=== PATIENT | female | born 1970 | race Caucasian/White ===

== ENCOUNTER 2023-09-26 09:57 | Observation (INO) | payer OTHER ==
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
[2023-09-26 11:06] LABS: Basophils % (A) 1 %; Eosinophils # (A) 0.2 k/uL (0-0.7); Eosinophils % (A) 4 %; HGB 13.5 gm/dL (11.4-16.0); Lymphocytes # (A) 0.8 k/uL (1.0-4.8); Lymphocytes % (A) 14 %; MCH 29.1 pg (25.0-35.0); MCHC 34.7 g/dL (31.0-37.0); MCV 83.7 fL (80.0-100.0); Mean Platelet Volume 7.9; Monocytes # (A) 0.4 k/uL (0-1.0); Monocytes % (A) 7 %; Neutrophils % (A) 74 %; Platelet Count 180 k/uL (150-450); RBC 4.66 m/uL (3.80-5.40); RDW 13.8 % (11.5-15.5); WBC 5.4 k/uL (3.8-10.6)
[2023-09-26 11:20] LABS: ALT 20 U/L (4-34); AST 25 U/L (14-36); African American GFR (CKD) 82 (>60 ml/min/1.73 sqM); Albumin 4.1 g/dL (3.5-5.0); Alkaline Phosphatase 58 U/L (38-126); Anion Gap 14 mmol/L; Blood Urea Nitrogen 18 mg/dL (7-17); Carbon Dioxide 22 mmol/L (22-30); Chloride 107 mmol/L (98-107); Glucose 134 mg/dL (74-99); Non-African American GFR(CKD) 71 (>60 ml/min/1.73 sqM); Sodium 143 mmol/L (137-145); Total Bilirubin 0.6 mg/dL (0.2-1.3); Total Protein 6.7 g/dL (6.3-8.2)
[2023-09-26 14:36] LABS: Amphetamine Screen,Urine Not Detected (NotDetected); Barbiturate Screen,Urine Not Detected (NotDetected); Benzodiazepines Screen,Urine Not Detected (NotDetected); Cocaine Screen,Urine Not Detected (NotDetected); Methadone Screen, Urine Not Detected (NotDetected); Opiate Screen,Urine Not Detected (NotDetected); Oxycodone Screen, Urine Not Detected (NotDetected); Phencyclidine Screen,Urine Not Detected (NotDetected); Tricyclic Antidepressant,Urine Not Detected (NotDetected); Urn Cannabinoid Scrn Not Detected (NotDetected)
[2023-09-26 17:31] LABS: Mucus,Urine Rare /hpf; RBC,Urine 1 /hpf (0-5); Squamous Epithelial Cell,Urine 3 /hpf (0-4); WBC,Urine 6 /hpf (0-5)
[2023-09-26 17:32] LABS: Appearance,Urine Clear (Clear); Bilirubin,Urine Negative (Negative); Blood,Urine Negative (Negative); Color,Urine Yellow; Glucose,Urine (UA) Negative (Negative); Ketones,Urine Negative (Negative); Leukocyte Esterase,Urine Trace (Negative); Nitrite,Urine Negative (Negative); PH, Urine 6.5 (5.0-8.0); Protein,Urine 2+ (Negative); Urobilinogen,Urine <2.0 mg/dL (<2.0)
[2023-09-26] MEDS ORDERED: SODIUM CHLORIDE 0.9% 1,000 ML IV ONE (19:12)
--- NOTE | 2023-09-27 10:46 | CT ---
EXAMINATION TYPE: CT brain wo con DATE OF EXAM: 09/27/2023 HISTORY: Altered mental status CT DLP: 2036.4 mGycm. Automated Exposure Control for Dose Reduction was Utilized. TECHNIQUE: CT scan of the head is performed without contrast. COMPARISON: None. FINDINGS: There is no acute intracranial hemorrhage or midline shift identified. Ventricles and sul ci within normal limits in size for patient's age. There is mild low-attenuation in the periventricu lar white matter most likely consistent with chronic small vessel ischemic change in patient of this age. The globes are intact and the visualized sinuses are clear. IMPRESSION: No acute intracranial hemorrhage or midline shift. There is mild chronic small vessel i schemic change noted.
--- NOTE | 2023-09-27 12:15 | P.CNNES ---
History of Present Illness Consult date: 09/27/23 Requesting physician: Rohan Stover Reason for Consult: acute psychosis History of Present Illness: This is a 53-year-old woman who presented emergency department because of psychiatric evaluation. History is obtained from medical record. Patient is unable to provide any history. Per the ED note is seems the the patient comes in because of the medication adjustment secondary to worsening bizarre behavior, confusion at home over the last month. She was recently seen by psychiatrist and had medications adjusted has not helped. She had a recent urinary tract infection. Was notified by ED team that EPS team wanted neurology to evaluate the patient. Per EMR, she is on home medication of trazodone 50 mg daily at bedtime when necessary, Risperdal 1 mg twice a day, Depakote 500 mg twice a day, Cogentin,Lumateperone 21mg daily. Some of the workup during his hospital visit consisted of: White blood cells 5.4 thousand. Calcium is 11.0, glucose 134, sodium, creatinine within normal limits. AST and ALT is within normal function. Urine drug she is not detected. The valproic acid is 101.3 concern possible to xic. Review of Systems Limited but positive and negative as per HPI. Past Medical History Past Medical History: Hypertension History of Any Multi-Drug Resistant Organisms: None Reported Past Surgical History: No Surgical Hx Reported Past Psychological History: Bipolar, Schizoaffective Disorder Smoking Status: Former smoker Past Alcohol Use History: None Reported Past Drug Use History: None Reported Medications and Allergies Home Medications Medication Instructions Recorded Confirmed Type Benztropine Mesylate [Cogentin] 2 mg PO DAILY 09/26/23 09/26/23 History Divalproex Sodium [Depakote] 500 mg PO BID 09/26/23 09/26/23 History Lumateperone Tosylate [Caplyta] 21 mg PO DAILY 09/26/23 09/26/23 History amLODIPine [Norvasc] 10 mg PO DAILY 09/26/23 09/26/23 History risperiDONE [RisperDAL] 1 mg PO BID 09/26/23 09/26/23 History traZODone HCL [Desyrel] 50 mg PO HS PRN 09/26/23 09/26/23 History Allergies Allergy/AdvReac Type Severity Reaction Status Date / Time Penicillins Allergy Rash/Hives Verified 09/26/23 12:15 Physical Examination - Vital Signs Vital Signs: Vital Signs Temp Pulse Resp BP Pulse Ox 09/27/23 07:10 84 18 141/89 98 09/26/23 22:43 68 16 134/81 99 09/26/23 19:00 98.0 F 67 18 132/79 96 General: Lying in bed and does not appear in acute distress. HENT: Supple neck. Neuro: very limited but is severely encephalopathic. Briefly opens eyes and the pupils are around 4 mm reactive to light equally. Followed very few simple commands after multiple attempts in which she stuck her tongue and she was able to show a thumbs up. No facial weakness. Motor is hard to assess individual muscle strength but spontaneously moves all extremities above gravity. Reflexes is 2 positive throughout. Plantars are mute. Results - Laboratory Findings CBC and BMP: 09/26/23 10:45 09/26/23 10:45 Abnormal Lab Findings: Abnormal Labs 09/26/23 09/26/23 09/26/23 10:45 10:45 10:45 Lymphocytes # 0.8 L BUN 18 H Glucose 134 H Calcium 11.0 H Ammonia Urine Protein 2+ H Ur Leukocyte Esterase Trace H Urine WBC 6 H Urine Mucus Rare H 09/27/23 10:34 Lymphocytes # BUN Glucose Calcium Ammonia 42 H Urine Protein Ur Leukocyte Esterase Urine WBC Urine Mucus Assessment and Plan Assessment: This is a 53-year-old woman with significant psychiatric history who presents because of psychiatric evaluation. EPS recommended neurological evaluation. Valproic acid was 101.3 which is a possible toxic. Severe encephalopathy/Toxic encephalopathy. Possibly due to medication-induced with possible toxic level of Depakote of 101.3. Significant psychiatric issues Plan: I ordered ammonia level, vitamin B12, folate, TSH and CT head. Recommend the modification of Depakote and a wound defer management to the psychiatry team. We'll defer the rest of the medical management to the primary team Plan discussed with the patient's nurse Thank you consultation Time with Patient: Greater than 30
[2023-09-27] MEDS ORDERED: traZODone HCL 50 MG TAB PO PRN (13:47)
[2023-09-27] MEDS ORDERED: LUMATEPERONE TOSYLATE 21 MG PO SCH (14:00)
[2023-09-27] MEDS ORDERED: risperiDONE 1 MG TAB PO SCH (14:00)
[2023-09-27] MEDS ORDERED: BENZTROPINE MESYLATE 1 MG TAB PO SCH (14:00)
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
[2023-09-27] MEDS: amLODIPine 10 MG TAB PO SCH (15:29)
--- NOTE | 2023-09-27 16:02 | EEG ---
ELECTROENCEPHALOGRAM REPORT CLINICAL HISTORY: This is a 53-year-old woman with history of bipolar, schizoaffective, who has altered mental status. The video EEG is obtained to evaluate for seizure and epileptiform activity. RELEVANT MEDICATION: Depakote. EEG TYPE: A routine 21-channel EEG with video using the 10/20 electrode placement system. DESCRIPTION: Wakefulness and drowsiness are obtained. During awake state, the background consists of 8.5 to 9 Hz activity. At times, the background consists of diffuse nonrhythmic delta intermixed with theta activity. There is no physiological stage II sleep architecture. There is no focal slowing. INTERICTAL AND ICTAL: None. ACTIVATION PROCEDURE: Photic stimulation and hyperventilation are not performed. CLINICAL INTERPRETATION: This is an abnormal routine EEG. The background slowing is suggestive of mild encephalopathy, possibly due to toxic metabolic derangement. Otherwise, there is no focal slowing, epileptiform discharge, or seizure on the EEG. Clinical correlation is recommended. KIARA / JIGNESH: [id number] /
--- NOTE | 2023-09-27 16:58 | P.HPIM ---
History of Present Illness H&P Date: 09/27/23 Brenda Ward, he is a 53-year-old female who presented to [facility] emergency room due to confusion and agitation, per emergency room records patient was recently treated for a urinary tract infection, she was also followed by a psychiatrist and her medication were adjusted recently, however she continued to have confusion and bizarre behavior was episodes of agitation, she was brought into emergency room for further evaluation and treatment, and for psychiatry care evaluation. She was evaluated in the emergency room vital examination on presentation revealed a temperature of 98.2 pulse 83 respiration 18 blood pressure 143/86 pulse ox 96% on room air Laboratory data revealed a white blood count of 5.4 hemoglobin 13.5 platelet count 180 sodium 143 potassium 4.0 chloride 107 CO2 22 BUN 18 creatinine 0.91 glucose 134 calcium 11 valproic acid level was elevated at 101.3 COVID-19 PCR was negative Testing in the emergency room revealed computed tomography scan of the brain revealed no acute intracranial hemorrhage or midline shift there was evidence of mild chronic small vessel ischemic changes. Patient was admitted to medical floor for further evaluation and treatment Past Medical History Past Medical History: Hypertension History of Any Multi-Drug Resistant Organisms: None Reported Past Surgical History: No Surgical Hx Reported Past Psychological History: Bipolar, Schizoaffective Disorder Smoking Status: Former smoker Past Alcohol Use History: None Reported Past Drug Use History: None Reported Medications and Allergies Home Medications Medication Instructions Recorded Confirmed Type Benztropine Mesylate [Cogentin] 2 mg PO DAILY 09/26/23 09/26/23 History Divalproex Sodium [Depakote] 500 mg PO BID 09/26/23 09/26/23 History Lumateperone Tosylate [Caplyta] 21 mg PO DAILY 09/26/23 09/26/23 History amLODIPine [Norvasc] 10 mg PO DAILY 09/26/23 09/26/23 History risperiDONE [RisperDAL] 1 mg PO BID 09/26/23 09/26/23 History traZODone HCL [Desyrel] 50 mg PO HS PRN 09/26/23 09/26/23 History Allergies Allergy/AdvReac Type Severity Reaction Status Date / Time Penicillins Allergy Rash/Hives Verified 09/26/23 12:15 Physical Exam Vitals: Vital Signs Temp Pulse Resp BP Pulse Ox 09/27/23 07:10 84 18 141/89 98 09/26/23 22:43 68 16 134/81 99 09/26/23 19:00 98.0 F 67 18 132/79 96 In general patient patient is somnolent opens her eyes briefly, follows simple commands then closes her eyes in HEENT head normocephalic and atraumatic Neck is supple no JVD no goiter no lymphadenopathy no carotid bruit Chest examination is clear to auscultation no crackles no wheezing Cardiac exam reveals regular heart sounds S1 and S2 no gallops no murmurs Abdomen is soft nontender no organomegaly with normal bowel sounds Extremity exam reveals no edema no cyanosis or clubbing Neurological examination reveals no gross focal deficits Results CBC & Chem 7: 09/26/23 10:45 09/26/23 10:45 Labs: Abnormal Lab Results - Last 24 Hours (Table) 09/26/23 09/26/23 09/26/23 Range/Units 10:45 10:45 10:45 Lymphocytes # 0.8 L (1.0-4.8) k/uL BUN 18 H (7-17) mg/dL Glucose 134 H (74-99) mg/dL Calcium 11.0 H (8.4-10.2) mg/dL Urine Protein 2+ H (Negative) Ur Leukocyte Esterase Trace H (Negative) Urine WBC 6 H (0-5) /hpf Urine Mucus Rare H (None) /hpf Assessment and Plan Plan: Encephalopathy, cause is unclear, no evidence of infectious process at this time, likely related to medication side effects, neurology and psychiatry consultation requested Mild Depakote toxicity with a level of 101.3 Underlying history of schizoaffective disorder Recent history of urinary tract infection with treatment, no evidence of UTI at this tme. Underlying history of hypertension maintained on amlodipine At this time patient will be admitted to medical floor Psychiatry and neurology consultation requested For DVT prophylaxis subcu Angex Will follow closely
[2023-09-27] MEDS: ENOXAPARIN 40 MG/0.4 ML SYRINGE SQ SCH (18:16)
[2023-09-27] MEDS ORDERED: MELATONIN 3 MG TABLET PO SCH (21:00)
[2023-09-28] MEDS: traZODone HCL 50 MG TAB PO PRN (01:00)
[2023-09-28] MEDS: amLODIPine 10 MG TAB PO SCH (09:11)
[2023-09-28] MEDS: ENOXAPARIN 40 MG/0.4 ML SYRINGE SQ SCH (09:12)
--- NOTE | 2023-09-28 10:39 | P.PN ---
Subjective Progress Note Date: 09/28/23 Brenda Ward, he is a 53-year-old female who presented to [facility] emergency room due to confusion and agitation, per emergency room records patient was recently treated for a urinary tract infection, she was also followed by a psychiatrist and her medication were adjusted recently, however she continued to have confusion and bizarre behavior was episodes of agitation, she was brought into emergency room for further evaluation and treatment, and for psychiatry care evaluation. She was evaluated in the emergency room vital examination on presentation revealed a temperature of 98.2 pulse 83 respiration 18 blood pressure 143/86 pulse ox 96% on room air Laboratory data revealed a white blood count of 5.4 hemoglobin 13.5 platelet count 180 sodium 143 potassium 4.0 chloride 107 CO2 22 BUN 18 creatinine 0.91 glucose 134 calcium 11 valproic acid level was elevated at 101.3 COVID-19 PCR was negative Testing in the emergency room revealed computed tomography scan of the brain revealed no acute intracranial hemorrhage or midline shift there was evidence of mild chronic small vessel ischemic changes. Patient was admitted to medical floor for further evaluation and treatment On 09/28/2023 patient is currently resting comfortably in bed medications adjusted per neurology and psych EEG ordered. Awaiting further recommendations from neurology services. Current vital signs temp 98.0, heart rate 72, respiratory rate 17, blood pressure 136/84 and pulse ox 98% on room air Objective - Vital Signs Vital signs: Vital Signs Temp 98.0 F 09/26/23 19:00 Pulse 72 09/28/23 09:00 Resp 17 09/28/23 09:00 BP 136/84 09/28/23 09:00 Pulse Ox 98 09/28/23 09:00 FiO2 - Exam In general patient patient is somnolent opens her eyes briefly, follows simple commands then closes her eyes in HEENT head normocephalic and atraumatic Neck is supple no JVD no goiter no lymphadenopathy no carotid bruit Chest examination is clear to auscultation no crackles no wheezing Cardiac exam reveals regular heart sounds S1 and S2 no gallops no murmurs Abdomen is soft nontender no organomegaly with normal bowel sounds Extremity exam reveals no edema no cyanosis or clubbing Neurological examination reveals no gross focal deficits - Labs CBC & Chem 7: 09/26/23 10:45 09/26/23 10:45 Labs: Abnormal Lab Results - Last 24 Hours (Table) 09/27/23 Range/Units 10:34 Ammonia 42 H (<30) umol/L Assessment and Plan Plan: Encephalopathy, cause is unclear, no evidence of infectious process at this time, likely related to medication side effects, neurology and psychiatry consultation requested Mild Depakote toxicity with a level of 101.3 Underlying history of schizoaffective disorder Recent history of urinary tract infection with treatment, no evidence of UTI at this tme. Underlying history of hypertension maintained on amlodipine At this time patient will be admitted to medical floor Psychiatry and neurology consultation requested For DVT prophylaxis subcu Lovenox Will follow closely
[2023-09-28 11:32] LABS: ALT 21 U/L (8-44); AST 18 U/L (13-35); Albumin 4.1 g/dL (3.8-4.9); Albumin/Globulin Ratio 1.78 Ratio (1.60-3.17); Alkaline Phosphatase 62 U/L (41-126); Blood Urea Nitrogen 20.1 mg/dL (9.0-27.0); Calcium 10.8 mg/dL (8.7-10.3); Chloride 106 mmol/L (96-109); Globulin 2.3 g/dL (1.6-3.3); Glucose 100 mg/dL (70-110); Potassium 4.3 mmol/L (3.5-5.5); Sodium 142 mmol/L (135-145); Total Bilirubin 0.4 mg/dL (0.3-1.2); Total Protein 6.4 g/dL (6.2-8.2)
[2023-09-28 11:35] LABS: Basophils # (A) 0.03 X 10*3/uL (0.00-0.10); Basophils % (A) 0.6 %; Eosinophils # (A) 0.16 X 10*3/uL (0.04-0.35); Eosinophils % (A) 3.4 %; HGB 13.3 g/dL (12.0-15.0); Lymphocytes # (A) 1.15 X 10*3/uL (0.90-5.00); Lymphocytes % (A) 24.5 %; MCH 27.4 pg (27.0-32.0); MCHC 33.3 g/dL (32.0-37.0); MCV 82.5 FL (80.0-97.0); Mean Platelet Volume 10.8 FL (9.5-12.2); Monocytes # (A) 0.49 X 10*3/uL (0.20-1.00); Monocytes % (A) 10.4 %; NRBC Per 100 WBC 0 X 10*3/uL (0.00-0.01); Neutrophils # (A) 2.85 X 10*3/uL (1.80-7.70); Neutrophils % (A) 60.7 %; Platelet Count 193 X 10*3/uL (140-440); RBC 4.85 X 10*6/uL (4.10-5.20); RDW 13.2 % (11.5-14.5)
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
--- NOTE | 2023-09-28 14:01 | P.PN ---
Progress Note - Text Progress Note Date: 09/28/23 Interval history: Patient was seen today for psychiatric follow-up with regard to her delirium. Patient appeared to be more weak today and was eating her lunch. She continues to be somewhat confused and did not know today's date. She didn't know where she was and also her full name today. She was more cooperative today with comic book writer. Appears to have mildly improving attention span. She appears to have very poor insight and judgment. She denied any depression or anxiety. She was a very poor historian, illogical at times. States that she slept fairly, has a fair appetite. Denies having any suicidal or homicidal ideations better plan. Denying any auditory or visual hallucinations. MENTAL STATUS EXAM: General Appearance: Patient appears to be have short hair, lying in bed and lethargic. stated age. Patient appears to have fair hygiene and grooming wearing hospital gown with improving eye contact. Behavior: Patient is calmly lying in bed without any agitated behavior. Her weight today, bizarre Speech: Patient's speech is concrete, soft tone. Improving Mood/Affect: Cleans her mood is "okay", affect is constricted Suicidality/Homicidality: Patient denies having any suicidal or homicidal ideation intent or plan. Perceptions: Patient denies any visual hallucinations and denies any auditory hallucinations Though content/process: There is no evidence of any delusional thought content. concrete. poverty of content. Bizarre at times Memory and concentration: AOX2, does not know today's date. grossly poor concentration improving Judgment and insight: poor IMPRESSIONS: Delirium, unknown etiology (possibly medication induced vs toxic-metabolic) possible medication adverse reaction? History of schizoaffective disorder PLAN: -At this time patient DOES NOT meet criteria for inpatient psychiatric admission however patient will be continued to be followed by psychiatry to determine if patient will meet criteria at a later point. -Delirium precautions recommended with patient including - avoiding use of narcotics and AUTOMAT [employer]ENDANT sedatives, limit anticholinergic medications when possible, frequent re-orientation, minimize use of restraints, open window shades during the day and close them at night -Would recommend the following medication changes/additions: increase prolixin 1.5 mg bid for delirium/psychosis. trazodone 25 qhs prn for insomnia. increase melatonin 5 mg qhs for sleep -Communicated plan to patient's nurse -Appreciate neurology recommendations, EEG reported that patient has evidence of mild encephalopathy. -Will continue to follow along if requested over the weekend. -Please contact with any questions.
[2023-09-28] MEDS: MELATONIN 5 MG TABLET PO SCH (21:19)
--- NOTE | 2023-09-29 06:34 | MR ---
EXAMINATION TYPE: MR brain wo/w con DATE OF EXAM: 09/28/2023 COMPARISON: CT brain from yesterday. HISTORY: Confusion of unknown cause TECHNIQUE: Multiplanar, multisequence images of the brain and brainstem is performed without and with IV contras t, utilizing 9 mL intravenous Gadavist . FINDINGS: Diffusion weighted images demonstrate no evidence of a recent infarct or other diffusion ab normality. There is mild ventricular and sulcal prominence redemonstrated. There are approximately 3 0-40 scattered foci of T2 hyperintensity seen throughout the white matter bilaterally. Lesions are mo st prominent in the periventricular levels. Lesion is nonspecific in appearance and distribution. Midline structures demonstrate empty sella morphology. The craniocervical junction appears within no rmal limits. Post contrast images demonstrate homogeneous enhancing extra-axial 11 x 9 mm mass along the anterior falx axial image 24 consistent with small meningioma. The dural venous sinuses appear p atent. The visualized sinuses are clear and the globes are intact. IMPRESSION: 1. No MRI evidence for a recent infarct. 2. Background mild diffuse cerebral atrophy and mild to moderate chronic small vessel ischemic change is appreciated. 3.. Incidental 11 mm meningioma along the anterior interhemispheric fissure.
[2023-09-29 09:16] LABS: ALT 25 U/L (8-44); AST 24 U/L (13-35); Albumin 4.3 g/dL (3.8-4.9); Albumin/Globulin Ratio 1.72 Ratio (1.60-3.17); Alkaline Phosphatase 67 U/L (41-126); BUN/Creat Ratio 20.67 Ratio (12.00-20.00); Blood Urea Nitrogen 18.6 mg/dL (9.0-27.0); Carbon Dioxide 23.4 mmol/L (21.6-31.8); Chloride 107 mmol/L (96-109); Globulin 2.5 g/dL (1.6-3.3); Glucose 100 mg/dL (70-110); Potassium 4.5 mmol/L (3.5-5.5); Sodium 141 mmol/L (135-145); Total Bilirubin 0.4 mg/dL (0.3-1.2); Total Protein 6.8 g/dL (6.2-8.2)
[2023-09-29] MEDS: amLODIPine 10 MG TAB PO SCH (09:27)
[2023-09-29] MEDS: ENOXAPARIN 40 MG/0.4 ML SYRINGE SQ SCH (09:27)
[2023-09-29 10:17] LABS: Basophils # (A) 0.05 X 10*3/uL (0.00-0.10); Basophils % (A) 0.9 %; Eosinophils # (A) 0.19 X 10*3/uL (0.04-0.35); Eosinophils % (A) 3.5 %; HCT 42.4 % (37.2-46.3); HGB 13.9 g/dL (12.0-15.0); Lymphocytes # (A) 1.43 X 10*3/uL (0.90-5.00); Lymphocytes % (A) 26.7 %; MCH 27.4 pg (27.0-32.0); MCHC 32.8 g/dL (32.0-37.0); MCV 83.6 FL (80.0-97.0); Mean Platelet Volume 10.5 FL (9.5-12.2); Monocytes # (A) 0.54 X 10*3/uL (0.20-1.00); Monocytes % (A) 10.1 %; NRBC Per 100 WBC 0 X 10*3/uL (0.00-0.01); Neutrophils # (A) 3.13 X 10*3/uL (1.80-7.70); Neutrophils % (A) 58.4 %; Platelet Count 205 X 10*3/uL (140-440); RBC 5.07 X 10*6/uL (4.10-5.20); RDW 13.3 % (11.5-14.5); WBC 5.36 X 10*3/uL (4.50-10.00)
--- NOTE | 2023-09-29 10:18 | P.PN ---
Subjective Progress Note Date: 09/29/23 Brenda Ward, he is a 53-year-old female who presented to [facility] emergency room due to confusion and agitation, per emergency room records patient was recently treated for a urinary tract infection, she was also followed by a psychiatrist and her medication were adjusted recently, however she continued to have confusion and bizarre behavior was episodes of agitation, she was brought into emergency room for further evaluation and treatment, and for psychiatry care evaluation. She was evaluated in the emergency room vital examination on presentation revealed a temperature of 98.2 pulse 83 respiration 18 blood pressure 143/86 pulse ox 96% on room air Laboratory data revealed a white blood count of 5.4 hemoglobin 13.5 platelet count 180 sodium 143 potassium 4.0 chloride 107 CO2 22 BUN 18 creatinine 0.91 glucose 134 calcium 11 valproic acid level was elevated at 101.3 COVID-19 PCR was negative Testing in the emergency room revealed computed tomography scan of the brain revealed no acute intracranial hemorrhage or midline shift there was evidence of mild chronic small vessel ischemic changes. Patient was admitted to medical floor for further evaluation and treatment On 09/28/2023 patient is currently resting comfortably in bed medications adjusted per neurology and psych EEG ordered. Awaiting further recommendations from neurology services. Current vital signs temp 98.0, heart rate 72, respiratory rate 17, blood pressure 136/84 and pulse ox 98% on room air On 09/29/2023 patient is alert and oriented 3 currently resting comfortably in bed. Medications have been adjusted per psychiatry and neurology services. Awaiting further recommendations from neurology and psychiatry services in regards to Depakote. Nursing also stated that patient's aunt expressed concerns that she is not able to care for her will consult social work services Objective - Vital Signs Vital signs: Vital Signs Temp 98.2 F 09/29/23 09:15 Pulse 60 09/29/23 09:15 Resp 16 09/29/23 09:15 BP 156/86 09/29/23 09:15 Pulse Ox 98 09/29/23 09:15 FiO2 Intake & Output 09/28/23 09/29/23 09/29/23 18:59 06:59 18:59 Weight 90.718 kg Other: # Voids 1 2 - Exam In general patient patient is somnolent opens her eyes briefly, follows simple commands then closes her eyes in HEENT head normocephalic and atraumatic Neck is supple no JVD no goiter no lymphadenopathy no carotid bruit Chest examination is clear to auscultation no crackles no wheezing Cardiac exam reveals regular heart sounds S1 and S2 no gallops no murmurs Abdomen is soft nontender no organomegaly with normal bowel sounds Extremity exam reveals no edema no cyanosis or clubbing Neurological examination reveals no gross focal deficits - Labs CBC & Chem 7: 09/28/23 06:59 09/29/23 05:59 Labs: Abnormal Lab Results - Last 24 Hours (Table) 09/28/23 09/29/23 Range/Units 06:59 05:59 BUN/Creatinine Ratio 20.10 H 20.67 H (12.00-20.00) Ratio Calcium 10.8 H 11.0 H (8.7-10.3) mg/dL Assessment and Plan Plan: Encephalopathy, cause is unclear, no evidence of infectious process at this time, likely related to medication side effects, neurology and psychiatry consultation requested Mild Depakote toxicity with a level of 101.3 Underlying history of schizoaffective disorder Recent history of urinary tract infection with treatment, no evidence of UTI at this tme. Underlying history of hypertension maintained on amlodipine At this time patient will be admitted to medical floor Psychiatry and neurology consultation requested [facility] Will follow closely Social work services consulted
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
[2023-09-29] MEDS ORDERED: ACETAMINOPHEN TAB 325 MG TAB PO PRN (19:48)
[2023-09-29] MEDS: MELATONIN 5 MG TABLET PO SCH (20:22)
[2023-09-30] MEDS: lamoTRIgine 25 MG TAB PO SCH (08:28)
[2023-09-30] MEDS: amLODIPine 10 MG TAB PO SCH (08:28)
[2023-09-30] MEDS: ENOXAPARIN 40 MG/0.4 ML SYRINGE SQ SCH (08:28)
--- NOTE | 2023-09-30 12:00 | P.PN ---
Subjective Progress Note Date: 09/30/23 Brenda Ward, he is a 53-year-old female who presented to [facility] emergency room due to confusion and agitation, per emergency room records patient was recently treated for a urinary tract infection, she was also followed by a psychiatrist and her medication were adjusted recently, however she continued to have confusion and bizarre behavior was episodes of agitation, she was brought into emergency room for further evaluation and treatment, and for psychiatry care evaluation. She was evaluated in the emergency room vital examination on presentation revealed a temperature of 98.2 pulse 83 respiration 18 blood pressure 143/86 pulse ox 96% on room air Laboratory data revealed a white blood count of 5.4 hemoglobin 13.5 platelet count 180 sodium 143 potassium 4.0 chloride 107 CO2 22 BUN 18 creatinine 0.91 glucose 134 calcium 11 valproic acid level was elevated at 101.3 COVID-19 PCR was negative Testing in the emergency room revealed computed tomography scan of the brain revealed no acute intracranial hemorrhage or midline shift there was evidence of mild chronic small vessel ischemic changes. Patient was admitted to medical floor for further evaluation and treatment On 09/28/2023 patient is currently resting comfortably in bed medications adjusted per neurology and psych EEG ordered. Awaiting further recommendations from neurology services. Current vital signs temp 98.0, heart rate 72, respiratory rate 17, blood pressure 136/84 and pulse ox 98% on room air On 09/29/2023 patient is alert and oriented 3 currently resting comfortably in bed. Medications have been adjusted per psychiatry and neurology services. Awaiting further recommendations from neurology and psychiatry services in regards to Depakote. Nursing also stated that patient's aunt expressed concerns that she is not able to care for her will consult social work services On 09/30/2023 patient was seen and examined on the medical floor she is alert slightly confused in no apparent distress, there is no fever or chills no headache or dizziness no chest pain no shortness of breath no cough no nausea or vomiting no abdominal pain no diarrhea and no urinary symptoms. Brain MRI reveals evidence of 11 mm meningioma in the anterior interhemispheric fissure, case was discussed with Dr. Reed Felton, neurologist, he added Lamictal to her medication regimen, and advised increasing the dose gradually, he recommended follow-up with neurosurgery as outpatient. Objective - Vital Signs Vital signs: Vital Signs Temp 98.6 F 09/30/23 07:24 Pulse 54 L 09/30/23 07:24 Resp 16 09/30/23 07:24 BP 129/79 09/30/23 07:24 Pulse Ox 99 09/30/23 07:24 FiO2 Intake & Output 09/29/23 09/30/23 09/30/23 18:59 06:59 18:59 Intake Total 222 Balance 222 Intake: Oral 222 Other: # Voids 2 - Exam In general patient patient is somnolent opens her eyes briefly, follows simple commands then closes her eyes in HEENT head normocephalic and atraumatic Neck is supple no JVD no goiter no lymphadenopathy no carotid bruit Chest examination is clear to auscultation no crackles no wheezing Cardiac exam reveals regular heart sounds S1 and S2 no gallops no murmurs Abdomen is soft nontender no organomegaly with normal bowel sounds Extremity exam reveals no edema no cyanosis or clubbing Neurological examination reveals no gross focal deficits - Labs CBC & Chem 7: 09/29/23 05:59 09/29/23 05:59 Assessment and Plan Plan: Encephalopathy, cause is unclear, no evidence of infectious process at this time, likely related to medication side effects, neurology and psychiatry consultation requested Mild Depakote toxicity with a level of 101.3 Underlying history of schizoaffective disorder Recent history of urinary tract infection with treatment, no evidence of UTI at this tme. Underlying history of hypertension maintained on amlodipine At this time patient will be admitted to medical floor Psychiatry and neurology consultation requested For DVT prophylaxis subcu Lovenox Will follow closely Social work services consulted
[2023-09-30] MEDS: MELATONIN 5 MG TABLET PO SCH (21:49)
[2023-10-01 05:41] VITALS: RESP 16
[2023-10-01 09:09] LABS: Basophils # (A) 0.06 X 10*3/uL (0.00-0.10); Eosinophils # (A) 0.18 X 10*3/uL (0.04-0.35); Eosinophils % (A) 3.1 %; HCT 41.6 % (37.2-46.3); HGB 13.6 g/dL (12.0-15.0); Lymphocytes # (A) 1.71 X 10*3/uL (0.90-5.00); Lymphocytes % (A) 29.8 %; MCH 27.3 pg (27.0-32.0); MCHC 32.7 g/dL (32.0-37.0); MCV 83.4 FL (80.0-97.0); Mean Platelet Volume 10.6 FL (9.5-12.2); Monocytes # (A) 0.61 X 10*3/uL (0.20-1.00); Monocytes % (A) 10.6 %; NRBC Per 100 WBC 0 X 10*3/uL (0.00-0.01); Neutrophils # (A) 3.14 X 10*3/uL (1.80-7.70); Platelet Count 225 X 10*3/uL (140-440); RBC 4.99 X 10*6/uL (4.10-5.20); RDW 13.2 % (11.5-14.5); WBC 5.73 X 10*3/uL (4.50-10.00)
[2023-10-01 09:19] LABS: BUN/Creat Ratio 18.36 Ratio (12.00-20.00); Blood Urea Nitrogen 20.2 mg/dL (9.0-27.0); Glucose 102 mg/dL (70-110)
[2023-10-01 09:20] LABS: ALT 28 U/L (8-44); AST 17 U/L (13-35); Albumin 4.2 g/dL (3.8-4.9); Albumin/Globulin Ratio 1.75 Ratio (1.60-3.17); Alkaline Phosphatase 65 U/L (41-126); Chloride 107 mmol/L (96-109); Globulin 2.4 g/dL (1.6-3.3); Potassium 4.8 mmol/L (3.5-5.5); Sodium 142 mmol/L (135-145); Total Bilirubin 0.3 mg/dL (0.3-1.2); Total Protein 6.6 g/dL (6.2-8.2)
[2023-10-01] MEDS: ENOXAPARIN 40 MG/0.4 ML SYRINGE SQ SCH (09:31)
[2023-10-01] MEDS: amLODIPine 10 MG TAB PO SCH (09:32)
[2023-10-01] MEDS: lamoTRIgine 25 MG TAB PO SCH (09:32)
--- NOTE | 2023-10-01 17:02 | P.PN ---
Subjective Progress Note Date: 10/01/23 Brenda Ward, he is a 53-year-old female who presented to [facility] emergency room due to confusion and agitation, per emergency room records patient was recently treated for a urinary tract infection, she was also followed by a psychiatrist and her medication were adjusted recently, however she continued to have confusion and bizarre behavior was episodes of agitation, she was brought into emergency room for further evaluation and treatment, and for psychiatry care evaluation. She was evaluated in the emergency room vital examination on presentation revealed a temperature of 98.2 pulse 83 respiration 18 blood pressure 143/86 pulse ox 96% on room air Laboratory data revealed a white blood count of 5.4 hemoglobin 13.5 platelet count 180 sodium 143 potassium 4.0 chloride 107 CO2 22 BUN 18 creatinine 0.91 glucose 134 calcium 11 valproic acid level was elevated at 101.3 COVID-19 PCR was negative Testing in the emergency room revealed computed tomography scan of the brain revealed no acute intracranial hemorrhage or midline shift there was evidence of mild chronic small vessel ischemic changes. Patient was admitted to medical floor for further evaluation and treatment On 09/28/2023 patient is currently resting comfortably in bed medications adjusted per neurology and psych EEG ordered. Awaiting further recommendations from neurology services. Current vital signs temp 98.0, heart rate 72, respiratory rate 17, blood pressure 136/84 and pulse ox 98% on room air On 09/29/2023 patient is alert and oriented 3 currently resting comfortably in bed. Medications have been adjusted per psychiatry and neurology services. Awaiting further recommendations from neurology and psychiatry services in regards to Depakote. Nursing also stated that patient's aunt expressed concerns that she is not able to care for her will consult social work services On 09/30/2023 patient was seen and examined on the medical floor she is alert slightly confused in no apparent distress, there is no fever or chills no headache or dizziness no chest pain no shortness of breath no cough no nausea or vomiting no abdominal pain no diarrhea and no urinary symptoms. Brain MRI reveals evidence of 11 mm meningioma in the anterior interhemispheric fissure, case was discussed with Dr. Reed Felton, neurologist, he added Lamictal to her medication regimen, and advised increasing the dose gradually, he recommended follow-up with neurosurgery as outpatient. On 10/01/2023 patient was seen and examined on the medical floor she is alert slightly confused in no apparent distress, she is feeling better, there is no fever or chills no headache or dizziness no chest pain no shortness of breath no cough no nausea or vomiting no abdominal pain no diarrhea and no urinary symptoms. Brain MRI reveals evidence of 11 mm meningioma in the anterior interhemispheric fissure, case was discussed with Dr. Reed Felton, neurologist, he added Lamictal to her medication regimen, and advised increasing the dose gradually, he recommended follow-up with neurosurgery as outpatient. Objective - Vital Signs Vital signs: Vital Signs Temp 98.3 F 10/01/23 07:29 Pulse 54 L 10/01/23 07:29 Resp 16 10/01/23 07:29 BP 127/80 10/01/23 07:29 Pulse Ox 99 10/01/23 07:29 FiO2 Intake & Output 09/30/23 10/01/23 10/01/23 18:59 06:59 18:59 Intake Total 222 500 Balance 222 500 Intake: Oral 222 500 Other: Voiding Method Toilet # Voids 1 2 - Exam In general patient patient is somnolent opens her eyes briefly, follows simple commands then closes her eyes in HEENT head normocephalic and atraumatic Neck is supple no JVD no goiter no lymphadenopathy no carotid bruit Chest examination is clear to auscultation no crackles no wheezing Cardiac exam reveals regular heart sounds S1 and S2 no gallops no murmurs Abdomen is soft nontender no organomegaly with normal bowel sounds Extremity exam reveals no edema no cyanosis or clubbing Neurological examination reveals no gross focal deficits - Labs CBC & Chem 7: 10/01/23 05:37 10/01/23 05:37 Labs: Abnormal Lab Results - Last 24 Hours (Table) 10/01/23 Range/Units 05:37 Est GFR (CKD-EPI) 59 L (>=60) Calcium 11.0 H (8.7-10.3) mg/dL Assessment and Plan Plan: Encephalopathy, cause is unclear, no evidence of infectious process at this time, likely related to medication side effects, neurology and psychiatry consultation requested Mild Depakote toxicity with a level of 101.3 Underlying history of schizoaffective disorder Recent history of urinary tract infection with treatment, no evidence of UTI at this tme. Underlying history of hypertension maintained on amlodipine At this time patient will be admitted to medical floor Psychiatry and neurology consultation requested For DVT prophylaxis subcu Angex Will follow closely Social work services consulted
[2023-10-01] MEDS: MELATONIN 5 MG TABLET PO SCH (20:33)
[2023-10-01] MEDS: traZODone HCL 50 MG TAB PO PRN (22:14)
[2023-10-02] MEDS: lamoTRIgine 25 MG TAB PO SCH (09:20)
[2023-10-02] MEDS: ENOXAPARIN 40 MG/0.4 ML SYRINGE SQ SCH (09:20)
[2023-10-02] MEDS: amLODIPine 10 MG TAB PO SCH (09:20)
--- NOTE | 2023-10-02 09:52 | P.PN ---
Subjective Progress Note Date: 10/02/23 Brenda Ward, he is a 53-year-old female who presented to [facility] emergency room due to confusion and agitation, per emergency room records patient was recently treated for a urinary tract infection, she was also followed by a psychiatrist and her medication were adjusted recently, however she continued to have confusion and bizarre behavior was episodes of agitation, she was brought into emergency room for further evaluation and treatment, and for psychiatry care evaluation. She was evaluated in the emergency room vital examination on presentation revealed a temperature of 98.2 pulse 83 respiration 18 blood pressure 143/86 pulse ox 96% on room air Laboratory data revealed a white blood count of 5.4 hemoglobin 13.5 platelet count 180 sodium 143 potassium 4.0 chloride 107 CO2 22 BUN 18 creatinine 0.91 glucose 134 calcium 11 valproic acid level was elevated at 101.3 COVID-19 PCR was negative Testing in the emergency room revealed computed tomography scan of the brain r evealed no acute intracranial hemorrhage or midline shift there was evidence of mild chronic small vessel ischemic changes. Patient was admitted to medical floor for further evaluation and treatment On 09/28/2023 patient is currently resting comfortably in bed medications adjusted per neurology and psych EEG ordered. Awaiting further recommendations from neurology services. Current vital signs temp 98.0, heart rate 72, respiratory rate 17, blood pressure 136/84 and pulse ox 98% on room air On 09/29/2023 patient is alert and oriented 3 currently resting comfortably in bed. Medications have been adjusted per psychiatry and neurology services. Awaiting further recommendations from neurology and psychiatry services in regards to Depakote. Nursing also stated that patient's aunt expressed concerns that she is not able to care for her will consult social work services On 09/30/2023 patient was seen and examined on the medical floor she is alert slightly confused in no apparent distress, there is no fever or chills no headache or dizziness no chest pain no shortness of breath no cough no nausea or vomiting no abdominal pain no diarrhea and no urinary symptoms. Brain MRI reveals evidence of 11 mm meningioma in the anterior interhemispheric fissure, case was discussed with Dr. Reed Felton, neurologist, he added Lamictal to her medication regimen, and advised increasing the dose gradually, he recommended follow-up with neurosurgery as outpatient. On 10/01/2023 patient was seen and examined on the medical floor she is alert slightly confused in no apparent distress, she is feeling better, there is no fever or chills no headache or dizziness no chest pain no shortness of breath no cough no nausea or vomiting no abdominal pain no diarrhea and no urinary symptoms. Brain MRI reveals evidence of 11 mm meningioma in the anterior interhemispheric fissure, case was discussed with Dr. Reed Felton, neurologist, he added Lamictal to her medication regimen, and advised increasing the dose gradually, he recommended follow-up with neurosurgery as outpatient. On 10/02/2023 patient is alert slightly confused resting comfortably in bed. Patient denies chest pain or shortness of breath. Patient denies nausea vomiting or diarrhea. Patient denies any urinary burning frequency. Social work services following for discharge planning guardianship in progress. Current vital signs temp 98.3, heart rate 56, blood pressure 130/70 pulse ox 98% on room air Objective - Vital Signs Vital signs: Vital Signs Temp 97.5 F L 10/02/23 08:25 Pulse 50 L 10/02/23 08:25 Resp 16 10/02/23 08:25 BP 119/73 10/02/23 08:25 Pulse Ox 96 10/02/23 08:25 FiO2 Intake & Output 10/01/23 10/02/23 10/02/23 18:59 06:59 18:59 Intake Total 160 Balance 160 Intake: Oral 160 Other: Voiding Method Toilet # Voids 3 - Exam In general patient patient is somnolent opens her eyes briefly, follows simple commands then closes her eyes in HEENT head normocephalic and atraumatic Neck is supple no JVD no goiter no lymphadenopathy no carotid bruit Chest examination is clear to auscultation no crackles no wheezing Cardiac exam reveals regular heart sounds S1 and S2 no gallops no murmurs Abdomen is soft nontender no organomegaly with normal bowel sounds Extremity exam reveals no edema no cyanosis or clubbing Neurological examination reveals no gross focal deficits - Labs CBC & Chem 7: 10/01/23 05:37 10/01/23 05:37 Assessment and Plan Assessment: Encephalopathy, cause is unclear, no evidence of infectious process at this time, likely related to medication side effects, neurology and psychiatry consultation requested Mild Depakote toxicity with a level of 101.3 Underlying history of schizoaffective disorder Recent history of urinary tract infection with treatment, no evidence of UTI at this tme. Underlying history of hypertension maintained on amlodipine Brain meningioma seen on MRI per neurology patient was recommended to follow-up with neurosurgeon as outpatient At this time patient will be admitted to medical floor Psychiatry and neurology consultation requested For DVT prophylaxis subcu Lovenox Will follow closely Social work services consulted
--- NOTE | 2023-10-02 13:10 | P.DS ---
Providers Date of admission: 09/26/23 19:12 Attending physician: April Porter Consults: 09/26/23 19:12 Consult Physician Urgent Consulting Provider: Reed Felton Consult Reason/Comments: Acute psychosis Do you want consulting provider notified?: Yes Consult Physician Urgent Consulting Provider: Lele Astorga Consult Reason/Comments: Acute psychosis Do you want consulting provider notified?: Yes Primary care physician: April [facility] Course: Diagnosis on discharge: Encephalopathy, cause is unclear, no evidence of infectious process at this time, likely related to medication side effects, neurology and psychiatry consultation requested Mild Depakote toxicity with a level of 101.3 Underlying history of schizoaffective disorder Recent history of urinary tract infection with treatment, no evidence of UTI at this tme. Underlying history of hypertension maintained on amlodipine Brain meningioma seen on MRI per neurology patient was recommended to follow-up with neurosurgeon as outpatient Hospital course: Brenda Ward, he is a 53-year-old female who presented to [facility] emergency room due to confusion and agitation, per emergency room records patient was recently treated for a urinary tract infection, she was also followed by a psychiatrist and her medication were adjusted recently, however she continued to have confusion and bizarre behavior was episodes of agitation, she was brought into emergency room for further evaluation and treatment, and for psychiatry care evaluation. She was evaluated in the emergency room vital examination on presentation revealed a temperature of 98.2 pulse 83 respiration 18 blood pressure 143/86 pulse ox 96% on room air Laboratory data revealed a white blood count of 5.4 hemoglobin 13.5 platelet count 180 sodium 143 potassium 4.0 chloride 107 CO2 22 BUN 18 creatinine 0.91 glucose 134 calcium 11 valproic acid level was elevated at 101.3 COVID-19 PCR was negative Testing in the emergency room revealed computed tomography scan of the brain revealed no acute intracranial hemorrhage or midline shift there was evidence of mild chronic small vessel ischemic changes. Patient was admitted to medical floor for further evaluation and treatment On 09/28/2023 patient is currently resting comfortably in bed medications adjusted per neurology and psych EEG ordered. Awaiting further recommendations from neurology services. Current vital signs temp 98.0, heart rate 72, respiratory rate 17, blood pressure 136/84 and pulse ox 98% on room air On 09/29/2023 patient is alert and oriented 3 currently resting comfortably in bed. Medications have been adjusted per psychiatry and neurology services. Awaiting further recommendations from neurology and psychiatry services in regards to Depakote. Nursing also stated that patient's aunt expressed concerns that she is not able to care for her will consult social work services On 09/30/2023 patient was seen and examined on the medical floor she is alert slightly confused in no apparent distress, there is no fever or chills no headache or dizziness no chest pain no shortness of breath no cough no nausea or vomiting no abdominal pain no diarrhea and no urinary symptoms. Brain MRI reveals evidence of 11 mm meningioma in the anterior interhemispheric fissure, case was discussed with Dr. Reed Felton, neurologist, he added Lamictal to her medication regimen, and advised increasing the dose gradually, he recommended follow-up with neurosurgery as outpatient. On 10/01/2023 patient was seen and examined on the medical floor she is alert slightly confused in no apparent distress, she is feeling better, there is no fever or chills no headache or dizziness no chest pain no shortness of breath no cough no nausea or vomiting no abdominal pain no diarrhea and no urinary symptoms. Brain MRI reveals evidence of 11 mm meningioma in the anterior interhemispheric fissure, case was discussed with Dr. Reed Felton, neurologist, he added Lamictal to her medication regimen, and advised increasing the dose gradually, he recommended follow-up with neurosurgery as outpatient. On 10/02/2023 patient is alert slightly confused resting comfortably in bed. Patient denies chest pain or shortness of breath. Patient denies nausea vomiting or diarrhea. Patient denies any urinary burning frequency. Social work services following for discharge planning guardianship in progress. Current vital signs temp 98.3, heart rate 56, blood pressure 130/70 pulse ox 98% on room air Patient Condition at Discharge: Fair Plan - Discharge Summary Discharge Rx Participant: No New Discharge Prescriptions: New lamoTRIgine [LaMICtal] 25 mg PO DAILY tab fluPHENAZine [Prolixin] 1.5 mg PO BID tab traZODone HCL [Desyrel] 25 mg PO HS PRN tab PRN Reason: Insomnia Melatonin 5 mg PO HS tab Acetaminophen Tab [Tylenol] 650 mg PO Q6HR PRN tab PRN Reason: Fever And/ Or Pain Continue amLODIPine [Norvasc] 10 mg PO DAILY Benztropine Mesylate [Cogentin] 2 mg PO DAILY Discontinued traZODone HCL [Desyrel] 50 mg PO HS PRN PRN Reason: Insomnia Lumateperone Tosylate [Caplyta] 21 mg PO DAILY risperiDONE [RisperDAL] 1 mg PO BID Divalproex Sodium [Depakote] 500 mg PO BID Discharge Medication List Benztropine Mesylate [Cogentin] 2 mg PO DAILY 09/26/23 [History] amLODIPine [Norvasc] 10 mg PO DAILY 09/26/23 [History] Acetaminophen Tab [Tylenol] 650 mg PO Q6HR PRN tab 10/02/23 [Rx] Melatonin 5 mg PO HS tab 10/02/23 [Rx] fluPHENAZine [Prolixin] 1.5 mg PO BID tab 10/02/23 [Rx] lamoTRIgine [LaMICtal] 25 mg PO DAILY tab 10/02/23 [Rx] traZODone HCL [Desyrel] 25 mg PO HS PRN tab 10/02/23 [Rx] Follow up Appointment(s)/Referral(s): April Porter MD [Primary Care Provider] - 1-2 days Activity/Diet/Wound Care/Special Instructions: ISSA VALLES P[phone] [address] P: [phone]
[2023-10-02] MEDS ORDERED: ESCITALOPRAM 5 MG TAB PO SCH (13:45)
[2023-10-02 14:51] VITALS: BP 143/84; PULSE 76; TEMP 97.3
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
[2023-10-02] MEDS ORDERED: lamoTRIgine 25 MG TAB PO SCH (16:00)
[2023-10-02] MEDS ORDERED: traZODone HCL 50 MG TAB PO SCH (21:00)
== END 2023-10-02 16:40 ==
LOC: EC 09:57 → 6NMEDSUR 19:12 → INTOOBSV 19:12 → 6NMEDSUR 09-27 06:29 → UNDODISIN 10-02 16:40
PROVIDERS: ADMIT Internal Medicine; ATTEND Internal Medicine
DX: G92.8 Other toxic encephalopathy (principal); Z59.00 Homelessness unspecified; F25.9 Schizoaffective disorder, unspecified; I10 Essential (primary) hypertension; F31.9 Bipolar disorder, unspecified; D32.9 Benign neoplasm of meninges, unspecified; G20.C Parkinsonism, unspecified; Z20.822 Contact with and (suspected) exposure to COVID-19; Z87.440 Personal history of urinary (tract) infections; Z87.891 Personal history of nicotine dependence; Z79.899 Other long term (current) drug therapy; Z88.0 Allergy status to penicillin
CPT/HCPCS: 96372 ×6; 82075; 96360; 96361; 99285; 36415; 95816; 80164 ×2; 80053 ×4; 84443; 82607; 82140 ×2; 82746; 85025 ×4; 81001; 80306; 87635; 70450; 70553; G0378 ×7; J1650 ×6; A9585

== ENCOUNTER 2023-10-02 15:57 | Inpatient (IN) | payer MEDICAID, OTHER ==
[2023-10-02] MEDS ORDERED: MAGNESIUM HYDROXIDE 2,400 MG/30 ML CUP PO PRN (16:20)
[2023-10-02] MEDS ORDERED: MAG HYDROX/AL HYDROX/SIMETH 30 ML CUP PO PRN (16:20)
[2023-10-02] MEDS ORDERED: IBUPROFEN 600 MG TAB PO PRN (16:20)
[2023-10-02] MEDS: traZODone HCL 50 MG TAB PO SCH (21:07)
[2023-10-02] MEDS: lamoTRIgine 25 MG TAB PO SCH (21:07)
[2023-10-02] MEDS: MELATONIN 5 MG TABLET PO SCH (21:07)
[2023-10-03] MEDS: amLODIPine 10 MG TAB PO SCH (07:49)
[2023-10-03] MEDS: lamoTRIgine 25 MG TAB PO SCH ×2 (07:50→20:31)
[2023-10-03] MEDS ORDERED: ESCITALOPRAM 5 MG TAB PO SCH (09:00)
--- NOTE | 2023-10-03 09:12 | P.CONS ---
History of Present Illness - Reason for Consult Consult date: 10/03/23 Medical management - History of Present Illness Brenda Ward, yimi is a 53-year-old female who presented to [facility] emergency room due to confusion and agitation, per emergency room records patient was recently treated for a urinary tract infection, she was also followed by a psychiatrist and her medication were adjusted recently, however she continued to have confusion and bizarre behavior was episodes of agitation, she was brought into emergency room for further evaluation and treatment, and for psychiatry care evaluation. She was evaluated in the emergency room vital examination on presentation revealed a temperature of 98.2 pulse 83 respiration 18 blood pressure 143/86 pulse ox 96% on room air Laboratory data revealed a white blood count of 5.4 hemoglobin 13.5 platelet count 180 sodium 143 potassium 4.0 chloride 107 CO2 22 BUN 18 creatinine 0.91 glucose 134 calcium 11 valproic acid level was elevated at 101.3 COVID-19 PCR was negative Testing in the emergency room revealed computed tomography scan of the brain revealed no acute intracranial hemorrhage or midline shift there was evidence of mild chronic small vessel ischemic changes. Patient was admitted to medical floor for further evaluation and treatment During hospital stay medications were adjusted per neurology and psychiatry services. Patient mentation improved and patient did meet criteria for inpatient admission to mental health unit for depression. On 10/03/2023 patient's alert and oriented 3. Patient denies any nausea vomiting or diarrhea. Patient denies any urinary burning or frequency. Patient denies any chest pain or shortness of breath. Social work services are following for discharge planning and guardianship in progress Review of Systems Please refer to HPI otherwise unremarkable Past Medical History Past Medical History: Hypertension History of Any Multi-Drug Resistant Organisms: None Reported Past Surgical History: No Surgical Hx Reported Smoking Status: Former smoker Medications and Allergies Home Medications Medication Instructions Recorded Confirmed Type Benztropine Mesylate [Cogentin] 2 mg PO DAILY 09/26/23 10/02/23 History amLODIPine [Norvasc] 10 mg PO DAILY 09/26/23 10/02/23 History Acetaminophen Tab [Tylenol] 650 mg PO Q6HR PRN tab 10/02/23 10/02/23 Rx Melatonin 5 mg PO HS tab 10/02/23 10/02/23 Rx fluPHENAZine [Prolixin] 1.5 mg PO BID tab 10/02/23 10/02/23 Rx lamoTRIgine [LaMICtal] 25 mg PO DAILY tab 10/02/23 10/02/23 Rx traZODone HCL [Desyrel] 25 mg PO HS PRN tab 10/02/23 10/02/23 Rx Allergies Allergy/AdvReac Type Severity Reaction Status Date / Time Penicillins Allergy Rash/Hives Verified 10/02/23 17:36 Physical Exam Vitals: Vital Signs Temp Pulse Resp BP Pulse Ox 10/03/23 06:17 98.1 F 84 16 144/71 98 10/02/23 17:52 138/76 10/02/23 16:48 97.7 F 65 18 171/81 100 Intake and Output 10/02/23 10/03/23 10/03/23 22:59 06:59 14:59 Other: Weight 82.667 kg Head normocephalic Neck supple Lungs clear to auscultation bilaterally no wheezing or crackles Heart regular rate and rhythm S1-S2, no rub or gallop Abdomen is soft nontender nondistended positive bowel sounds no hepatosplenomegaly Extremities no edema Neuro alert and orientated to 3 Assessment and Plan Assessment: Depression and racing thoughts. Patient has been admitted to the mental health unit Encephalopathy, resolved Mild Depakote toxicity with a level of 101.3 Underlying history of schizoaffective disorder Recent history of urinary tract infection with treatment, no evidence of UTI at this tme. Underlying history of hypertension maintained on amlodipine Brain meningioma seen on MRI per neurology patient was recommended to follow-up with neurosurgeon as outpatient Thank you for this consultation we'll continue to follow patient closely throughout stay
[2023-10-03] MEDS: MELATONIN 5 MG TABLET PO SCH (20:31)
[2023-10-03] MEDS: traZODone HCL 50 MG TAB PO SCH (20:31)
[2023-10-04] MEDS: lamoTRIgine 25 MG TAB PO SCH ×2 (08:24→20:35)
[2023-10-04] MEDS: amLODIPine 10 MG TAB PO SCH (08:25)
[2023-10-04] MEDS ORDERED: ESCITALOPRAM 10 MG TAB PO SCH (09:00)
--- NOTE | 2023-10-04 11:50 | P.PN ---
Progress Note - Text Progress Note Date: 10/04/23 Interval History: Patient was seen wandering the hallways and was directable and agreeable to speak with clinical writer in the office. Patient states she feels nervous today endorsing anxiety, due to being homeless, and not knowing where her is, due to him being homeless and displaced at this time, and that he's been missing for months. Patient states that she's been taking her medications, however, feels anxious when she takes them, just because of her being in "this whole situation" Claims to sleep well at night, and that her appetite is good. Patient is going to groups. more directble and attending groups. Explained to patient that social work is working at finding her a place to go to upon discharge. Also talked to patient about transitioning onto a GONZALES before discharge, due to her previous non compliance with medications. Patient agreeable. At this time patie nt denies any suicidal or homical ideations, intent or plan. Patient denies any auditory, visual hallucinations and denies any paranoia or delusions. Patient denies any side effects from the medications and has been compliant with meds. Mental Status Exam: General Appearance: Patient appears to be have short hair, more alert, stated age. Patient appears to have fair hygiene and grooming wearing street clothes with improving eye contact. Behavior: Patient is calmly seated without any agitated behavior. Speech: Patient's speech is concrete, soft tone. mildly Improving Mood/Affect: Claims her mood is "anxious", affect is constricted Suicidality/Homicidality: Patient denies having any suicidal or homicidal ideation intent or plan. Perceptions: Patient denies any visual hallucinations, she admits to auditory hallucinations hearing voices, improving mildly Though content/process: There is no evidence of any delusional thought content. concrete. poverty of content. Memory and concentration: AOX3, improved attention span. Judgment and insight: poor, improving IMPRESSIONS: Schizoaffective disorder nicotine dependance homelessness PLAN: -Patient is admitted under voluntary status to MHU for stabilization of psychiatric symptoms and safety. Patient has signed adult voluntary form and medication consent and is placed in patient's chart. -Medications : prolixin 2 mg bid for delirium/psychosis,will speak with patient about switching to a GONZALES to ensure compliance. trazodone 50 qhs for insomnia. melatonin 5 mg qhs for sleep. increase lexapro 15 mg daily for mood/anxiety. Add Visteral 25mg q 6hours prn for anxiety. add Prolixin D 25 mg GONZALES, first dose 10/05, next dose due 10/19 -Ativan and Haldol PRN for agitation/aggression -NRT - nicotine patch -SW on board for discharge planning. Encourage patient to participate in groups to work on coping skills. Likely discharge early next week, after patient improves psychiatrically, and transitioned onto a GONZALES. product development worker looking into discharge planning as patient is currently homeless at this time and apparently has an APS filed.
[2023-10-04] MEDS: traZODone HCL 50 MG TAB PO SCH (20:35)
[2023-10-04] MEDS: MELATONIN 5 MG TABLET PO SCH (20:35)
[2023-10-05] MEDS: lamoTRIgine 25 MG TAB PO SCH ×2 (08:10→20:31)
[2023-10-05] MEDS: ESCITALOPRAM 5 MG TAB PO SCH (08:10)
[2023-10-05] MEDS: amLODIPine 10 MG TAB PO SCH (08:11)
--- NOTE | 2023-10-05 10:27 | P.PN ---
Progress Note - Text Progress Note Date: 10/05/23 Interval History: Patient was seen wandering the hallways and was directable and agreeable to speak with health underwriter in the office. Patient states she feels better, and not as nervous anymore. States her mood is on the depressed side however. Claims to sleep well at night, and that her appetite is good. Patient is going to groups, and more directble. Ballistics Expert spoke with patient about giving her the GONZALES today, and explained the benefits to the GONZALES as well, patient agreeable. At this time patient denies any suicidal or homical ideations, intent or plan. Patient denies any auditory, visual hallucinations and denies any paranoia or delusions. Patient denies any side effects from the medications and has been compliant with meds. Mental Status Exam: General Appearance: Patient appears to be have short hair, more alert, stated age. Patient appears to have fair hygiene and grooming wearing street clothes with improving eye contact. Behavior: Patient is calmly seated without any agitated behavior. Speech: Patient's speech is concrete, soft tone, mildly Improving Mood/Affect: Claims her mood is "depressed", affect is constricted, mildly improving Suicidality/Homicidality: Patient denies having any suicidal or homicidal ideation intent or plan. Perceptions: Patient denies any visual hallucinations/auditory hallucinations Though content/process: There is no evidence of any delusional thought content. concrete. poverty of content. Memory and concentration: AOX3, improved attention span. Judgment and insight: poor, improving IMPRESSIONS: Schizoaffective disorder nicotine dependance homelessness PLAN: -Patient is admitted under voluntary status to MHU for stabilization of psychiatric symptoms and safety. Patient has signed adult voluntary form and medication consent and is placed in patient's chart. -Medications : prolixin 2 mg bid for delirium/psychosis, trazodone 50 qhs for insomnia. melatonin 5 mg qhs for sleep. lexapro 15 mg daily for mood/anxiety. Visteral 25mg q 6hours prn for anxiety. today Prolixin D 25 mg GONZALES, first dose 10/05, next dose due 10/19 -Ativan and Haldol PRN for agitation/aggression -NRT - nicotine patch -SW on board for discharge planning. Encourage patient to participate in groups to work on coping skills. Likely discharge early next week, after patient improves psychiatrically, and transitioned onto a GONZALES. health service worker looking into discharge planning as patient is currently homeless.
[2023-10-05] MEDS ORDERED: fluPHENAZine DECANOATE 25 MG/ML 5ML MDV IM ONE (12:00)
[2023-10-05] MEDS: traZODone HCL 50 MG TAB PO SCH (20:31)
[2023-10-05] MEDS: MELATONIN 5 MG TABLET PO SCH (20:31)
[2023-10-06] MEDS: amLODIPine 10 MG TAB PO SCH (08:27)
[2023-10-06] MEDS: lamoTRIgine 25 MG TAB PO SCH ×2 (08:27→20:25)
[2023-10-06] MEDS: ESCITALOPRAM 5 MG TAB PO SCH (08:57)
--- NOTE | 2023-10-06 12:49 | P.PN ---
Progress Note - Text Progress Note Date: 10/06/23 Interval History: Patient was seen in her room and was directable and agreeable to speak with wr sánchez. she states her mood is continuing to improve claims that the depression is improving however continues to state that she does feel anxious. She claims that she did receive the Prolixin shot yesterday tolerated it well. We spoke about decreasing the by mouth Prolixin which she is okay with. She did state that she is sleeping better at nighttime. Claims that the voices have been improving. He has been going to some groups. claims to sleep well at night, and that her appetite is good. At this time patient denies any suicidal or homical ideations, intent or plan. Patient denies any auditory, visual hallucinations and denies any paranoia or delusions. Patient denies any side effects from the medications and has been compliant with meds. Mental Status Exam: General Appearance: Patient appears to be have short hair, more alert, stated age. Patient appears to have fair hygiene and grooming wearing street clothes with improving eye contact. Behavior: Patient is calmly seated without any agitated behavior. Speech: Patient's speech is concrete, soft tone, mildly Improving Mood/Affect: Claims her mood is "a bit anxious", affect is constricted, mildly improving Suicidality/Homicidality: Patient denies having any suicidal or homicidal ideation intent or plan. Perceptions: Patient denies any visual hallucinations/auditory hallucinations Though content/process: There is no evidence of any delusional thought content. concrete. poverty of content. Memory and concentration: AOX3, improved attention span. Judgment and insight: improving IMPRESSIONS: Schizoaffective disorder nicotine dependance homelessness PLAN: -Patient is admitted under voluntary status to MHU for stabilization of psychiatric symptoms and safety. Patient has signed adult voluntary form and medication consent and is placed in patient's chart. -Medications : decrease prolixin 1 mg bid for delirium/psychosis and plan to d/c after sunday morning dose, received Prolixin D 25 mg GONZALES, first dose 10/05, next dose due 10/19. trazodone 50 qhs for insomnia. melatonin 5 mg qhs for sleep. increase lexapro 20 mg daily for mood/anxiety. added buspar 10 mg bid for anxiety. Visteral 25mg q 6hours prn for anxiety. -Ativan and Haldol PRN for agitation/aggression -NRT - nicotine patch -SW on board for discharge planning. Encourage patient to participate in groups to work on coping skills. Likely discharge early this week, after patient improves psychiatrically, and transitioned onto a GONZALES. steel worker looking into discharge planning as patient is currently homeless.
[2023-10-06] MEDS: busPIRone HCl 10 MG TAB PO SCH ×2 (12:54→20:25)
[2023-10-06] MEDS: traZODone HCL 50 MG TAB PO SCH (20:25)
[2023-10-06] MEDS: MELATONIN 5 MG TABLET PO SCH (20:25)
[2023-10-07] MEDS: ESCITALOPRAM 20 MG TAB PO SCH (08:47)
[2023-10-07] MEDS: amLODIPine 10 MG TAB PO SCH (08:48)
[2023-10-07] MEDS: lamoTRIgine 25 MG TAB PO SCH ×2 (08:48→20:27)
[2023-10-07] MEDS: busPIRone HCl 10 MG TAB PO SCH ×2 (08:48→20:27)
--- NOTE | 2023-10-07 10:52 | P.PN ---
Progress Note - Text Progress Note Date: 10/07/23 Interval History: Patient was seen in her room and was directable and agreeable to speak with wr sánchez. she states her mood is continuing to improve. He claims that her anxiety is a bit better today. States that medications have been helping. We spoke about the medication treatment need to decrease Prolixin. States that she slept fairly last night. She did not offer any other complaints. claims to sleep well at night, and that her appetite is good. At this time patient denies any suicidal or homical ideations, intent or plan. Patient denies any auditory, visual hallucinations and denies any paranoia or delusions. Patient denies any side effects from the medications and has been compliant with meds. Mental Status Exam: General Appearance: Patient appears to be have short hair, more alert, stated age. Patient appears to have fair hygiene and grooming wearing street clothes with improving eye contact. Behavior: Patient is calmly seated without any agitated behavior. Speech: Patient's speech is concrete, soft tone, mildly Improving Mood/Affect: Claims her mood is "better", affect is constricted, mildly improving Suicidality/Homicidality: Patient denies having any suicidal or homicidal ideation intent or plan. Perceptions: Patient denies any visual hallucinations/auditory hallucinations Though content/process: There is no evidence of any delusional thought content. concrete. poverty of content, improving Memory and concentration: AOX3, improved attention span. Judgment and insight: improving IMPRESSIONS: Schizoaffective disorder nicotine dependance homelessness PLAN: -Patient is admitted under voluntary status to MHU for stabilization of psychiatric symptoms and safety. Patient has signed adult voluntary form and medication consent and is placed in patient's chart. -Medications : decrease prolixin po for delirium/psychosis and plan to d/c after sunday morning dose, received Prolixin D 25 mg GONZALES, first dose 10/05, next dose due 10/19. trazodone 50 qhs for insomnia. melatonin 5 mg qhs for sleep. lexapro 20 mg daily for mood/anxiety. buspar 10 mg bid for anxiety. Vistaril 25mg q 6hours prn for anxiety. -Ativan and Haldol PRN for agitation/aggression -NRT - nicotine patch -SW on board for discharge planning. Encourage patient to participate in groups to work on coping skills. Likely discharge early this week, after patient improves psychiatrically, and transitioned onto a GONZALES. transportation worker looking into discharge planning as patient is currently homeless.
[2023-10-07 16:49] LABS: Appearance,Urine Clear (Clear); Bilirubin,Urine Negative (Negative); Blood,Urine Negative (Negative); Color,Urine Colorless; Glucose,Urine (UA) Negative (Negative); Ketones,Urine Negative (Negative); Leukocyte Esterase,Urine Small (Negative); Mucus,Urine Rare /hpf; Nitrite,Urine Negative (Negative); PH, Urine 6.5 (5.0-8.0); Protein,Urine 1+ (Negative); RBC,Urine <1 /hpf (0-5); Specific Gravity,Urine 1.014 (1.001-1.035); Squamous Epithelial Cell,Urine 1 /hpf (0-4); Urobilinogen,Urine <2.0 mg/dL (<2.0); WBC,Urine 14 /hpf (0-5)
[2023-10-07] MEDS: MELATONIN 5 MG TABLET PO SCH (20:27)
[2023-10-07] MEDS: traZODone HCL 50 MG TAB PO SCH (20:27)
[2023-10-08] MEDS: amLODIPine 10 MG TAB PO SCH (08:24)
[2023-10-08] MEDS: ESCITALOPRAM 20 MG TAB PO SCH (08:24)
[2023-10-08] MEDS: lamoTRIgine 25 MG TAB PO SCH ×2 (08:24→20:26)
[2023-10-08] MEDS: busPIRone HCl 10 MG TAB PO SCH ×2 (08:24→20:26)
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
--- NOTE | 2023-10-08 10:27 | P.PN ---
Progress Note - Text Progress Note Date: 10/08/23 Interval History: Patient was seen in her room and was directable and agreeable to speak with wr iter. she states she is "ok" . He claims that her anxiety is a bit better today. Patient is going to groups and activity groups. No problems with medication since she's received her GONZALES. States she slept well last night She did not offer any other complaints. Her appetite is good. At this time patient denies any suicidal or homical ideations, intent or plan. Patient denies any auditory, visual hallucinations and denies any paranoia or delusions. Patient denies any side effects from the medications and has been compliant with meds. Mental Status Exam: General Appearance: Patient appears to be have short hair, more alert, stated age. Patient appears to have fair hygiene and grooming wearing street clothes with improving eye contact. Behavior: Patient is calmly seated without any agitated behavior. Speech: Patient's speech is concrete, soft tone, Improving Mood/Affect: Claims her mood is "good", affect is constricted, improving Suicidality/Homicidality: Patient denies having any suicidal or homicidal ideation intent or plan. Perceptions: Patient denies any visual hallucinations/auditory hallucinations Though content/process: There is no evidence of any delusional thought content. concrete. poverty of content, improving Memory and concentration: AOX3, improved attention span. Judgment and insight: improving IMPRESSIONS: Schizoaffective disorder nicotine dependance homelessness PLAN: -Patient is admitted under voluntary status to MHU for stabilization of psychiatric symptoms and safety. Patient has signed adult voluntary form and medication consent and is placed in patient's chart. -Medications :Prolixin D 25 mg GONZALES, next dose due 10/19. trazodone 50 qhs for insomnia. melatonin 5 mg qhs for sleep. lexapro 20 mg daily for mood/anxiety. buspar 10 mg bid for anxiety. Vistaril 25mg q 6hours prn for anxiety. -Ativan and Haldol PRN for agitation/aggression -NRT - nicotine patch -SW on board for discharge planning. Encourage patient to participate in groups to work on coping skills. Likely discharge this week Sunday vs Sunday, since patient is improving psychiatrically, and transitioned onto a GONZALES. supply service worker looking into discharge planning as patient is currently homeless.
[2023-10-08] MEDS: MELATONIN 5 MG TABLET PO SCH (20:26)
[2023-10-08] MEDS: traZODone HCL 50 MG TAB PO SCH (20:26)
[2023-10-09] MEDS: amLODIPine 10 MG TAB PO SCH (08:25)
[2023-10-09] MEDS: lamoTRIgine 25 MG TAB PO SCH ×2 (08:25→20:38)
[2023-10-09] MEDS: busPIRone HCl 10 MG TAB PO SCH ×2 (08:25→20:38)
[2023-10-09] MEDS: ESCITALOPRAM 20 MG TAB PO SCH (08:25)
[2023-10-09] MEDS: ACETAMINOPHEN TAB 325 MG TAB PO PRN (12:07)
--- NOTE | 2023-10-09 12:07 | P.PN ---
Progress Note - Text Progress Note Date: 10/09/23 Interval History: Patient was seen wandering the hallways today. Patient was agreeable to seek a typewriter assembler in the office. She claims that she is showering every other day, states that she is doing a bit better overall. Claims that her anxiety is mildly improving since yesterday. Denies any depression today. She was asking questions about when her lease date will be. We spoke about the different placement options and also her current situation given that she doesn't have any income at this time. States she slept well last night. She did not offer any other complaints. Her appetite is good. She is often visible on the unit. At this time patient denies any suicidal or homical ideations, intent or plan. Patient denies any auditory, visual hallucinations and denies any paranoia or delusions. Patient denies any side effects from the medications and has been compliant with meds. Mental Status Exam: General Appearance: Patient appears to be have short hair, more alert, stated age. Patient appears to have fair hygiene and grooming wearing street clothes with improving eye contact. Behavior: Patient is calmly seated without any agitated behavior. Cooperative today Speech: Patient's speech is concrete, soft tone, Improving Mood/Affect: Claims her mood is "good", affect is constricted, improving Suicidality/Homicidality: Patient denies having any suicidal or homicidal ideation intent or plan. Perceptions: Patient denies any visual hallucinations/auditory hallucinations Though content/process: There is no evidence of any delusional thought content. concrete. poverty of content, improving Memory and concentration: AOX3, improved attention span. Judgment and insight: improving IMPRESSIONS: Schizoaffective disorder nicotine dependance homelessness PLAN: -Patient is admitted under voluntary status to [facility]HU for stabilization of psychiatric symptoms and safety. Patient has signed adult voluntary form and medication consent and is placed in patient's chart. -Medications : Prolixin D 25 mg GONZALES last dose was given on 10/05, next dose due 10/19. trazodone 50 qhs for insomnia. melatonin 5 mg qhs for sleep. lexapro 20 mg daily for mood/anxiety. buspar 10 mg bid for anxiety. Vistaril 25mg q 6hours prn for anxiety. -Ativan and Haldol PRN for agitation/aggression -NRT - nicotine patch -SW on board for discharge planning. Encourage patient to participate in groups to work on coping skills. Likely discharge once patient has a safe discharge plan and is placed. patient is improving psychiatrically, and transitioned onto a GONZALES at this time. animal shelter worker looking into discharge planning as patient is currently homeless. APS communicating with [facility] to advise a plan for discharge given that patient has no income.
[2023-10-09] MEDS: traZODone HCL 50 MG TAB PO SCH (20:38)
[2023-10-09] MEDS: MELATONIN 5 MG TABLET PO SCH (20:38)
[2023-10-10] MEDS: busPIRone HCl 10 MG TAB PO SCH ×2 (08:32→20:03)
[2023-10-10] MEDS: lamoTRIgine 25 MG TAB PO SCH ×2 (08:32→20:03)
[2023-10-10] MEDS: amLODIPine 10 MG TAB PO SCH (08:32)
[2023-10-10] MEDS: ESCITALOPRAM 20 MG TAB PO SCH (08:32)
--- NOTE | 2023-10-10 11:55 | P.PN ---
Progress Note - Text Progress Note Date: 10/10/23 Interval History: Patient was seen wandering the hallways today. Patient was agreeable to seek a teletypewriter operator in the office. States she's doing pretty well, and the medications are starting to work for her. States that she would like to get back into the workforce. Claims that her anxiety is mildly improving . Denies any depression today. We spoke about the different placement options and also her current situation given that she doesn't have any income at this time. Waiting on APS report and guardianship hearing to see about discharge plans. States she slept well last night. She did not offer any other complaints. Her appetite is good. She is often visible on the unit, and going to groups. At this time patient denies any suicidal or homical ideations, intent or plan. Patient denies any auditory, visual hallucinations and denies any paranoia or delusions. Patient denies any side effects from the medications and has been compliant with meds. Mental Status Exam: General Appearance: Patient appears to be have short hair, more alert, stated age. Patient appears to have fair hygiene and grooming wearing street clothes with improving eye contact. Behavior: Patient is calmly seated without any agitated behavior. Cooperative today Speech: Patient's speech is concrete, soft tone, Improving Mood/Affect: Claims her mood is "pretty well", affect is constricted, improving Suicidality/Homicidality: Patient denies having any suicidal or homicidal ideation intent or plan. Perceptions: Patient denies any visual hallucinations/auditory hallucinations Though content/process: There is no evidence of any delusional thought content. concrete. poverty of content, improving Memory and concentration: AOX3, improved attention span. Judgment and insight: improving IMPRESSIONS: Schizoaffective disorder nicotine dependance homelessness PLAN: -Patient is admitted under voluntary status to MHU for stabilization of psychiatric symptoms and safety. Patient has signed adult voluntary form and medication consent and is placed in patient's chart. -Medications : Prolixin D 25 mg GONZALES last dose was given on 10/05, next dose due 10/19. trazodone 50 qhs for insomnia. melatonin 5 mg qhs for sleep. lexapro 20 mg daily for mood/anxiety. buspar 10 mg bid for anxiety. Vistaril 25mg q 6hours prn for anxiety. -Ativan and Haldol PRN for agitation/aggression -NRT - nicotine patch -SW on board for discharge planning. Encourage patient to participate in groups to work on coping skills. Likely discharge once patient has a safe discharge plan and is placed. patient is improving psychiatrically, and transitioned onto a GONZALES at this time. auto glass worker looking into discharge planning as patient is currently homeless. APS communicating with [facility] to advise a plan for discharge given that patient has no income.
[2023-10-10] MEDS: MELATONIN 5 MG TABLET PO SCH (20:03)
[2023-10-10] MEDS: traZODone HCL 50 MG TAB PO SCH (20:03)
[2023-10-11] MEDS: busPIRone HCl 10 MG TAB PO SCH ×2 (08:02→22:15)
[2023-10-11] MEDS: ESCITALOPRAM 20 MG TAB PO SCH (08:02)
[2023-10-11] MEDS: amLODIPine 10 MG TAB PO SCH (08:02)
[2023-10-11] MEDS: lamoTRIgine 25 MG TAB PO SCH ×2 (08:03→21:03)
--- NOTE | 2023-10-11 10:31 | P.PN ---
Progress Note - Text Progress Note Date: 10/11/23 Interval History: Patient was seen laying in bed. Patient was agreeable to seek a program writer in the office. States she's doing "ok" and that she wasn't feeling very well this morning. Patient appears to be stumbling over her words today. Patient is presenting with EPS symptoms today, shuffling gait and stiff muscles. Educated patient on EPS, and told her that I was going to prescribe Cogentin, patient agreeable to take it. Patient states that she slept well last night. Waiting on APS report and guardianship hearing to see about discharge plans. States she slept well last night. She did not offer any other complaints. Her appetite is good. She is going to groups. At this time patient denies any suicidal or homical ideations, intent or plan. Patient denies any auditory, visual hallucinations and denies any paranoia or delusions. Patient denies any side effects from the medications and has been compliant with meds. Mental Status Exam: General Appearance: Patient appears to be have short hair, more alert, stated age. Patient appears to have fair hygiene and grooming wearing street clothes with improving eye contact. Behavior: Patient is calmly seated without any agitated behavior. Cooperative today Speech: Patient's speech is concrete, soft tone, Improving Mood/Affect: Claims her mood is "ok", affect is constricted, improving Suicidality/Homicidality: Patient denies having any suicidal or homicidal ideation intent or plan. Perceptions: Patient denies any visual hallucinations/auditory hallucinations Though content/process: There is no evidence of any delusional thought content. concrete. poverty of content, improving Memory and concentration: AOX3, improved attention span. Judgment and insight: improving IMPRESSIONS: Schizoaffective disorder nicotine dependance homelessness Extraparametal symptoms PLAN: -Patient is admitted under voluntary status to MHU for stabilization of psychiatric symptoms and safety. Patient has signed adult voluntary form and medication consent and is placed in patient's chart. -Medications : decrease Prolixin D to 12.5 mg IM GONZALES last dose was given on 10/05, next dose due 10/23. trazodone 50 qhs for insomnia. melatonin 5 mg qhs for sleep. lexapro 20 mg daily for mood/anxiety. buspar 10 mg bid for anxiety. Vistaril 25mg q 6hours prn for anxiety. Add Cogentin 1mg bid for EPS symptoms. -Ativan and Haldol PRN for agitation/aggression -NRT - nicotine patch -SW on board for discharge planning. Encourage patient to participate in groups to work on coping skills. Likely discharge once patient has a safe discharge plan and is placed. patient is improving psychiatrically, and transitioned onto a GONZALES at this time. hog worker looking into discharge planning as patient is currently homeless. APS communicating with [facility] to advise a plan for discharge given that patient has no income.
[2023-10-11] MEDS: BENZTROPINE MESYLATE 1 MG TAB PO SCH ×2 (10:41→20:51)
[2023-10-11 11:47] VITALS: BMI 33.0
[2023-10-11] MEDS: MELATONIN 5 MG TABLET PO SCH (21:04)
[2023-10-11 21:34] LABS: Appearance,Urine Cloudy (Clear); Bacteria,Urine Rare /hpf; Bilirubin,Urine Negative (Negative); Blood,Urine Negative (Negative); Color,Urine Light Yellow; Glucose,Urine (UA) Negative (Negative); Ketones,Urine Negative (Negative); Leukocyte Esterase,Urine Large (Negative); Mucus,Urine Rare /hpf; Nitrite,Urine Negative (Negative); Protein,Urine 1+ (Negative); RBC,Urine 2 /hpf (0-5); Specific Gravity,Urine 1.014 (1.001-1.035); Squamous Epithelial Cell,Urine 2 /hpf (0-4); Urobilinogen,Urine <2.0 mg/dL (<2.0); WBC,Urine 138 /hpf (0-5)
[2023-10-11] MEDS: traZODone HCL 50 MG TAB PO SCH (22:16)
[2023-10-12] MEDS: amLODIPine 10 MG TAB PO SCH (08:16)
[2023-10-12] MEDS ORDERED: BENZTROPINE MESYLATE 0.5 MG TAB PO SCH (09:00)
[2023-10-12] MEDS ORDERED: traZODone HCL 50 MG TAB PO PRN (11:33)
--- NOTE | 2023-10-12 11:38 | P.PN ---
Progress Note - Text Progress Note Date: 10/12/23 Interval History: Patient was seen laying in bed. Patient was agreeable to seek a video games storywriter. States she's doing "ok" now. Patient states that she slept well last night. Patients EPS symptoms are improving mildly, will discontinue the GONZALES. Waiting on APS report and guardianship hearing to see about discharge plans. Patient is going to groups. she did not offer any other complaints. Her appetite is good. she continues to state that her legs are tense. At this time patient denies any suicidal or homical ideations, intent or plan. Patient denies any auditory, visual hallucinations and denies any paranoia or delusions. Patient denies any side effects from the medications and has been compliant with meds. less confused today, more directable. Mental Status Exam: General Appearance: Patient appears to be have short hair, more alert, stated age. Patient appears to have fair hygiene and grooming wearing street clothes with improving eye contact. Behavior: Patient is calmly laying without any agitated behavior. Cooperative today, less confused. Speech: Patient's speech is concrete, soft tone, Improving Mood/Affect: Claims her mood is "ok", affect is constricted, improving Suicidality/Homicidality: Patient denies having any suicidal or homicidal ideation intent or plan. Perceptions: Patient denies any visual hallucinations/auditory hallucinations Though content/process: There is no evidence of any delusional thought content. concrete. poverty of content, improving Memory and concentration: AOX3, improved attention span. Judgment and insight: improving IMPRESSIONS: Schizoaffective disorder nicotine dependance homelessness Extraparametal symptoms PLAN: -Patient is admitted under voluntary status to MHU for stabilization of psychiatric symptoms and safety. Patient has signed adult voluntary form and medication consent and is placed in patient's chart. -Medications: discontinue Prolixin D due to likely intolerance or GONZALES however will restart PO prolixin in a weeks time if patient improves with EPS sx. change trazodone 50mg qhs prn for insomnia. melatonin 5 mg qhs for sleep. lexapro 20 mg daily for mood/anxiety. buspar 10 mg bid for anxiety. Vistaril 25mg q 6hours prn for anxiety. decrease Cogentin 0.5mg qhs for EPS symptoms then d/c 10/14. -Ativan and Haldol PRN for agitation/aggression -NRT - nicotine patch -SW on board for discharge planning. Encourage patient to participate in groups to work on coping skills. Likely discharge once patient has a safe discharge plan and is placed. farmworker machine looking into discharge planning as patient is currently homeless. APS communicating with [facility] to advise a plan for discharge given that patient has no income.
--- NOTE | 2023-10-12 12:31 | P.PN ---
Subjective Progress Note Date: 10/12/23 Brenda Ward, he is a 53-year-old female who presented to [facility] emergency room due to confusion and agitation, per emergency room records patient was recently treated for a urinary tract infection, she was also followed by a psychiatrist and her medication were adjusted recently, however she continued to have confusion and bizarre behavior was episodes of agitation, she was brought into emergency room for further evaluation and treatment, and for psychiatry care evaluation. She was evaluated in the emergency room vital examination on presentation revealed a temperature of 98.2 pulse 83 respiration 18 blood pressure 143/86 pulse ox 96% on room air Laboratory data revealed a white blood count of 5.4 hemoglobin 13.5 platelet count 180 sodium 143 potassium 4.0 chloride 107 CO2 22 BUN 18 creatinine 0.91 glucose 134 calcium 11 valproic acid level was elevated at 101.3 COVID-19 PCR was negative Testing in the emergency room revealed computed tomography scan of the brain revealed no acute intracranial hemorrhage or midline shift there was evidence of mild chronic small vessel ischemic changes. Patient was admitted to medical floor for further evaluation and treatment 10/12/2023 patient was seen and examined in the psychiatry unit, I was called to reevaluate patient due to elevated temperature. Temperature is 101.8 pulse is 76 respiration 20 blood pressure 136/67 pulse ox 98% on room air, patient is denying any cough or any respiratory symptoms, she denies any diarrhea, she denies any burning with urination but has frequency with urination, COVID-19 PCR testing was done and was negative urine analysis was done and revealed evidence of urinary tract infection with large leukocyte esterase and 138 white blood cells in high power field, at this time patient is ALLERGIC to penicillin, and Jocyro has multiple interaction with her psychiatric medications, she will be started on a course of Bactrim DS one by mouth twice daily, will check urine culture and monitor closely. Objective - Vital Signs Vital signs: Vital Signs Temp 98.6 F 10/12/23 06:53 Pulse 85 10/12/23 08:17 Resp 18 10/12/23 06:53 BP 130/69 10/12/23 08:17 Pulse Ox 94 L 10/12/23 06:53 FiO2 Intake & Output 10/11/23 10/12/23 10/12/23 18:59 06:59 18:59 Weight 82 kg - Exam Head normocephalic Neck supple Lungs clear to auscultation bilaterally no wheezing or crackles Heart regular rate and rhythm S1-S2, no rub or gallop Abdomen is soft nontender nondistended positive bowel sounds no hepatosplenomegaly Extremities no edema Neuro alert and orientated to 3 - Labs Labs: Abnormal Lab Results - Last 24 Hours (Table) 10/11/23 Range/Units 21:18 Urine Appearance Cloudy H (Clear) Urine Protein 1+ H (Negative) Ur Leukocyte Esterase Large H (Negative) Urine WBC 138 H (0-5) /hpf Urine Bacteria Rare H (None) /hpf Urine Mucus Rare H (None) /hpf Assessment and Plan Assessment: Depression and racing thoughts. Patient has been admitted to the mental health unit Encephalopathy, resolved Mild Depakote toxicity with a level of 101.3 Underlying history of schizoaffective disorder Recent history of urinary tract infection with treatment, no evidence of UTI at this tme. Underlying history of hypertension maintained on amlodipine Brain meningioma seen on MRI per neurology patient was recommended to follow-up with neurosurgeon as outpatient Evidence of urinary tract infection started on oral Bactrim Thank you for this consultation we'll continue to follow patient closely throughout stay
[2023-10-12] MEDS: ESCITALOPRAM 20 MG TAB PO SCH (14:03)
[2023-10-12] MEDS: busPIRone HCl 10 MG TAB PO SCH ×2 (14:03→20:42)
[2023-10-12] MEDS: lamoTRIgine 25 MG TAB PO SCH ×2 (14:03→20:42)
[2023-10-12] MEDS: SULFAMETHOX-TMP 800-160MG 1 EACH TAB PO SCH ×2 (14:04→20:44)
[2023-10-12] MEDS: BENZTROPINE MESYLATE 0.5 MG TAB PO SCH (20:42)
[2023-10-12] MEDS: MELATONIN 5 MG TABLET PO SCH (20:42)
[2023-10-13] MEDS: amLODIPine 10 MG TAB PO SCH (08:41)
[2023-10-13] MEDS: lamoTRIgine 25 MG TAB PO SCH ×2 (08:41→19:58)
[2023-10-13] MEDS: busPIRone HCl 10 MG TAB PO SCH ×2 (08:41→19:59)
[2023-10-13] MEDS: ESCITALOPRAM 20 MG TAB PO SCH (08:41)
[2023-10-13] MEDS: SULFAMETHOX-TMP 800-160MG 1 EACH TAB PO SCH ×2 (08:41→19:58)
--- NOTE | 2023-10-13 10:01 | P.PN ---
Subjective Progress Note Date: 10/13/23 Principal diagnosis: Schizoaffective disorder Extraparamedal symptoms Interval History: Patient was seen laying in bed. Patient said she felt a little unstable and rather be interviewed in the room. States she's doing "ok" now. Patient states that she slept well last night and said that she had a good appetite appropriate for.. Patient denies any side effects from the medications and has been compliant with meds. directable. Medical problems: The patient was diagnosed with urinary tract infection and was running high fever yesterday she is being treated with antibiotics. Mental Status Exam: She did have a fine tremor General Appearance: Patient appears to be have short hair, more alert, stated age. Patient appears to have fair hygiene and grooming wearing street clothes with improving eye contact. Behavior: Patient is calmly laying without any agitated behavior. Cooperative today, less confused. Speech: Patient's speech is concrete, soft tone, Improving Mood/Affect: She says she is not feeling anxious or she complained of instability when she tries to get up and walk. So I talked to her in her room. Suicidality/Homicidality: Patient denies having any suicidal or homicidal ideation intent or plan. Perceptions: Patient denies any visual hallucinations/auditory hallucinations Though content/process: There is no evidence of any delusional thought content. concrete. poverty of content, Memory and concentration: AOX3, a good attention and stayed on topic Judgment and insight: Didn't seem to have any ideas of what needed to change for her to do well after discharge. IMPRESSIONS: Schizoaffective disorder nicotine dependance homelessness Extraparametal symptoms PLAN: -Patient is admitted under voluntary status to MHU for stabilization of psychiatric symptoms and safety. Patient has signed adult voluntary form and medication consent and is placed in patient's chart. -Medications: discontinue Prolixin D due to likely intolerance or GONZALES however will restart PO prolixin in a weeks time if patient improves with EPS sx. change trazodone 50mg qhs prn for insomnia. melatonin 5 mg qhs for sleep. lexapro 20 mg daily for mood/anxiety. buspar 10 mg bid for anxiety. Vistaril 25mg q 6hours prn for anxiety. decrease Cogentin 0.5mg qhs for EPS symptoms d/c 10/14. -Ativan and Haldol PRN for agitation/aggression -NRT - nicotine patch -SW on board for discharge planning. Encourage patient to participate in groups to work on coping skills. Likely discharge once patient has a safe discharge plan and is placed. warehouse assembly worker looking into discharge planning as patient is currently homeless. APS communicating with [facility] to advise a plan for discharge given that patient has no income. This is a plan from yesterday and I don't see a need to alter his at this time. Objective - Vital Signs Vital signs: Vital Signs Temp 98.6 F 10/12/23 06:53 Pulse 85 10/12/23 08:17 Resp 18 10/12/23 06:53 BP 130/69 10/12/23 08:17 Pulse Ox 94 L 10/12/23 06:53 FiO2 - Labs Labs: Microbiology - Last 24 Hours (Table) 10/11/23 21:18 Urine Culture - Final Urine,Voided
[2023-10-13] MEDS: MELATONIN 5 MG TABLET PO SCH (19:58)
[2023-10-13] MEDS: BENZTROPINE MESYLATE 0.5 MG TAB PO SCH (19:58)
[2023-10-14] MEDS: lamoTRIgine 25 MG TAB PO SCH ×2 (08:50→19:46)
[2023-10-14] MEDS: ESCITALOPRAM 20 MG TAB PO SCH (08:50)
[2023-10-14] MEDS: amLODIPine 10 MG TAB PO SCH (08:50)
[2023-10-14] MEDS: SULFAMETHOX-TMP 800-160MG 1 EACH TAB PO SCH ×2 (08:50→19:46)
[2023-10-14] MEDS: busPIRone HCl 10 MG TAB PO SCH ×2 (08:50→19:46)
--- NOTE | 2023-10-14 09:51 | P.PN ---
Subjective Progress Note Date: 10/14/23 Principal diagnosis: Schizoaffective disorder Extraparamedal symptoms Interval History: Patient was seen laying in bed. Patient said she felt a little unstable and rather be interviewed in the room. States she's doing "ok" now. Patient states that she slept well last night and said that she had a good appetite appropriate. Patient denies any side effects from the medications and has been compliant with meds. directable. Medical problems: The patient was diagnosed with urinary tract infection and was running high fever she is being treated with antibiotics. Mental Status Exam: She did have a fine tremor which looks quite a bit better General Appearance: Patient has short hair, is alert, appears her stated age. Patient appears to have fair hygiene and grooming wearing street clothes with improving eye contact. Behavior: Patient is calmly laying without any agitated behavior. Cooperative today. She talked about how she wants to be with family and likes to go shopping but how shopping would be really crowded now with people getting last minute presents for Broderick. Speech: Patient's speech is concrete, soft tone, but she seems to be Improving Mood/Affect: She says she is not feeling anxious. She still complained of instability when she tries to get up and walk. So I talked to her in her room. Suicidality/Homicidality: Patient denies having any suicidal or homicidal ideation intent or plan. Perceptions: Patient denies any visual hallucinations/auditory hallucinations Though content/process: There is no evidence of any delusional thought content. concrete. poverty of content, Memory and concentration: AOX3, a good attention and stayed on topic Judgment and insight: Didn't seem to have any ideas of what needed to change for her to do well after discharge. IMPRESSIONS: Schizoaffective disorder nicotine dependance homelessness Extraparametal symptoms PLAN: -Patient is admitted under voluntary status to MHU for stabilization of psychiatric symptoms and safety. Patient has signed adult voluntary form and medication consent and is placed in patient's chart. -Medications: discontinue Prolixin D due to likely intolerance or GONZALES however will restart PO prolixin in a weeks time if patient improves with EPS sx. change trazodone 50mg qhs prn for insomnia. melatonin 5 mg qhs for sleep. lexapro 20 mg daily for mood/anxiety. buspar 10 mg bid for anxiety. Vistaril 25mg q 6hours prn for anxiety. decrease Cogentin 0.5mg qhs for EPS symptoms d/c 10/14. -Ativan and Haldol PRN for agitation/aggression -NRT - nicotine patch - on board for discharge planning. Encourage patient to participate in groups to work on coping skills. Likely discharge once patient has a safe discharge plan and is placed. product development worker looking into discharge planning as patient is currently homeless. APS communicating with [facility] to advise a plan for discharge given that patient has no income. I don't see a need to alter his at this time. Objective - Vital Signs Vital signs: Vital Signs Temp 97.6 F 10/13/23 08:40 Pulse 57 L 10/14/23 06:57 Resp 16 10/13/23 08:40 BP 133/70 10/14/23 06:57 Pulse Ox 94 L 10/12/23 06:53 FiO2
[2023-10-14] MEDS: ACETAMINOPHEN TAB 325 MG TAB PO PRN (15:06)
[2023-10-14] MEDS: MELATONIN 5 MG TABLET PO SCH (19:46)
[2023-10-14] MEDS: BENZTROPINE MESYLATE 0.5 MG TAB PO SCH (19:46)
[2023-10-15] MEDS: ESCITALOPRAM 20 MG TAB PO SCH (08:50)
[2023-10-15] MEDS: amLODIPine 10 MG TAB PO SCH (08:50)
[2023-10-15] MEDS: lamoTRIgine 25 MG TAB PO SCH ×2 (08:50→20:38)
[2023-10-15] MEDS: SULFAMETHOX-TMP 800-160MG 1 EACH TAB PO SCH ×2 (08:50→20:38)
[2023-10-15] MEDS: busPIRone HCl 10 MG TAB PO SCH ×2 (08:50→20:38)
--- NOTE | 2023-10-15 09:59 | P.PN ---
Subjective Progress Note Date: 10/15/23 Patient Name: Brenda Ward Date of : 1970 Patient Status: Inpatient Attending Provider: Lele Astorga Date: 10/15/23 Initialization Date: 10/14/23 09:48 Subjective Progress Note Date: 10/13/23 Principal diagnosis: Schizoaffective disorder Extraparamedal symptoms Interval History: The patient was seen chart was reviewed and case discussed with the nursing st aff Patient was seen in the hallway where she was cooperative with this interview Patient reports that she slept better She says that her thoughts are feeling much more relaxed and that she is not hea ring any voices anymore She initially stated that she is minimally year because she was homeless but then added that she was also having problems with depression as well as was also hearing voices States she's doing "ok" now. Patient states that she slept well last night and said that she had a good appetite appropriate. Patient denies any side effects from the medications and has been compliant with meds. Medical problems: The patient was diagnosed with urinary tract infection and was running high fever she is being treated with antibiotics. Mental Status Exam: Patient currently does not exhibit any tremors General Appearance: Disheveled appearance Behavior: Patient is ambulating fairly well without any loss of any secondary movements Speech: Patient's speech is concrete, appropriate syntax Mood/Affect: Flat Suicidality/Homicidality: Patient denies having any suicidal or homicidal ideation intent or plan. Perceptions: Patient denies any visual hallucinations/auditory hallucinations Though content/process: There is no evidence of any delusional thought content. concrete. poverty of content, Memory and concentration: AOX3, a good attention and stayed on topic Judgment and insight: Very concrete and simple Problem-solving skills are simple and concrete IMPRESSIONS: Schizoaffective disorder nicotine dependance homelessness Extraparametal symptoms PLAN: -Patient is admitted under voluntary status to MHU for stabilization of psychiatric symptoms and safety. Patient has signed adult voluntary form and medication consent and is placed in patient's chart. We'll continue the recommendations for medication management -Medications: discontinue Prolixin D due to likely intolerance or GONZALES however will restart PO prolixin in a weeks time if patient improves with EPS sx. trazodone 50mg qhs prn for insomnia. melatonin 5 mg qhs for sleep. lexapro 20 mg daily for mood/anxiety. buspar 10 mg bid for anxiety. Vistaril 25mg q 6hours prn for anxiety. Cogentin 0.5mg qhs for EPS symptoms and consider for discontinuing tomorrow -Ativan and Haldol PRN for agitation/aggression -NRT - nicotine patch -SW on board for discharge planning. Encourage patient to participate in groups to work on coping skills. Likely discharge once patient has a safe discharge plan and is placed. family assessment worker looking into discharge planning as patient is currently homeless. APS communicating with [facility] to advise a plan for discharge given that patient has no income. Alden Casas M.D. Objective - Vital Signs Vital signs: Vital Signs Temp 98.0 F 10/15/23 06:46 Pulse 76 10/15/23 06:46 Resp 18 10/15/23 06:46 BP 130/70 10/15/23 06:46 Pulse Ox 97 10/15/23 06:46 FiO2
[2023-10-15] MEDS: MELATONIN 5 MG TABLET PO SCH (20:38)
[2023-10-16] MEDS: amLODIPine 10 MG TAB PO SCH (08:18)
[2023-10-16] MEDS: ESCITALOPRAM 20 MG TAB PO SCH (08:18)
[2023-10-16] MEDS: lamoTRIgine 25 MG TAB PO SCH ×2 (08:18→20:02)
[2023-10-16] MEDS: busPIRone HCl 10 MG TAB PO SCH ×2 (08:18→20:02)
[2023-10-16] MEDS: SULFAMETHOX-TMP 800-160MG 1 EACH TAB PO SCH ×2 (08:18→20:02)
--- NOTE | 2023-10-16 10:17 | P.PN ---
Subjective Progress Note Date: 10/16/23 Patient Name: Brenda Ward Date of : 1970 Patient Status: Inpatient Attending Provider: Lele Astorga Date: 10/16/23 Initialization Date: 10/14/23 09:48 Subjective Progress Note Date: 10/16/23 Principal diagnosis: Schizoaffective disorder Interval History: The patient was seen chart was reviewed and case discussed with the nursing staff The patient was seen in her room where she was just getting up She reports that she slept well She denies that she is having any periods of agitation and anxiety or restlessness Patient reports that she was living with her aunt until 2014 Past about where she was living after 2014 patient stated that she was living here Patient was asked to clarify about what she just responded with and was unable to give any clear answers Remains simple and confused Thinking remains very concrete Patient reports that she is not expressing any auditory hallucinations at this time She admits that she is looking forward for placement Medical problems: The patient was diagnosed with urinary tract infection and was running high fever she is being treated with antibiotics. Mental Status Exam: Patient currently does not exhibit any tremors General Appearance: Disheveled appearance Behavior: Patient is ambulating fairly well without any loss of any secondary movements Speech: Patient's speech is concrete, appropriate syntax Mood/Affect: Flat Suicidality/Homicidality: Patient denies having any suicidal or homicidal ideation intent or plan. Perceptions: Patient denies any visual hallucinations/auditory hallucinations Though content/process: There is no evidence of any delusional thought content. concrete. poverty of content, Able to give any clear responses regarding the chronology of her living situation Memory and concentration: AOX3, a good attention and stayed on topic Judgment and insight: Very concrete and simple Problem-solving skills are simple and concrete IMPRESSIONS: Schizoaffective disorder nicotine dependance homelessness Extraparametal symptoms PLAN: -Patient is admitted under voluntary status to MHU for stabilization of psychiatric symptoms and safety. Patient has signed adult voluntary form and medication consent and is placed in patient's chart. We'll continue the recommendations for medication management -Medications: Prolixin D was discontinued due to likely intolerance The recommendation is to restart PO prolixin in a weeks time if patient improves with EPS sx. He currently does not exhibit any EPS symptoms trazodone 50mg qhs prn for insomnia. melatonin 5 mg qhs for sleep. lexapro 20 mg daily for mood/anxiety. buspar 10 mg bid for anxiety. Vistaril 25mg q 6hours prn for anxiety. Cogentin 0.5mg qhs for EPS symptoms has been discontinued -Ativan and Haldol PRN for agitation/aggression -NRT - nicotine patch -SW on board for discharge planning. Encourage patient to participate in groups to work on coping skills. Likely discharge once patient has a safe discharge plan and is placed. workers compensation consultant looking into discharge planning as patient is currently homeless. APS communicating with [facility] to advise a plan for discharge given that patient has no income. Alden Casas M.D. Objective - Vital Signs Vital signs: Vital Signs Temp 98.0 F 10/15/23 06:46 Pulse 84 10/16/23 08:19 Resp 18 10/15/23 06:46 BP 132/73 10/16/23 08:19 Pulse Ox 97 10/15/23 06:46 FiO2
[2023-10-16] MEDS: MELATONIN 5 MG TABLET PO SCH (20:02)
[2023-10-16] MEDS: hydrOXYzine pamoate 25 MG CAP PO PRN (20:03)
[2023-10-17] MEDS: lamoTRIgine 25 MG TAB PO SCH ×2 (08:30→20:06)
[2023-10-17] MEDS: ESCITALOPRAM 20 MG TAB PO SCH (08:30)
[2023-10-17] MEDS: SULFAMETHOX-TMP 800-160MG 1 EACH TAB PO SCH ×2 (08:30→20:06)
[2023-10-17] MEDS: amLODIPine 10 MG TAB PO SCH (08:30)
[2023-10-17] MEDS: busPIRone HCl 10 MG TAB PO SCH ×2 (08:30→20:06)
--- NOTE | 2023-10-17 10:13 | P.PN ---
Subjective Progress Note Date: 10/17/23 Patient Name: Brenda Ward Date of : 1970 Patient Status: Inpatient Attending Provider: eLle Astorga Date: 10/17/23 Initialization Date: 10/14/23 09:48 Subjective Progress Note Date: 10/17/23 Principal diagnosis: Schizoaffective disorder Interval History: The patient was seen chart was reviewed and case discussed with the nursing staff The patient was seen in her room where she was just getting up She reports that she slept well She denies that she is having any periods of agitation and anxiety or restlessness A Mini-Mental Status Examination was request to be done on the patient for assistance in the placement Patient score a 20 out of the 30 Taking remains very concrete and simple No agitation or aggression noted Patient denies any auditory or visual hallucinations She denies any suicidal or homicidal ideations or plans Mild tremors of her hands noted Medical problems: The patient was diagnosed with urinary tract infection and was running high fever she is being treated with antibiotics. Mental Status Exam: Patient is admits mild tremors of her hands General Appearance: Disheveled appearance Behavior: Patient is ambulating fairly well without any loss of any secondary movements Speech: Patient's speech is concrete, appropriate syntax Mood/Affect: Flat Suicidality/Homicidality: Patient denies having any suicidal or homicidal vidya ation intent or plan. Perceptions: Patient denies any visual hallucinations/auditory hallucinations Though content/process: There is no evidence of any delusional thought content. concrete. poverty of content, Able to give any clear responses regarding the chronology of her living situation Memory and concentration: AOX3, a good attention and stayed on topic Judgment and insight: Very concrete and simple Problem-solving skills are simple and concrete IMPRESSIONS: Schizoaffective disorder nicotine dependance homelessness Extraparametal symptoms PLAN: -Patient is admitted under voluntary status to MHU for stabilization of psychiatric symptoms and safety. Patient has signed adult voluntary form and medication consent and is placed in patient's chart. We'll continue the recommendations for medication management -Medications: Prolixin D was discontinued due to likely intolerance The recommendation is to restart PO prolixin in a weeks time if patient improves with EPS sx. He currently does not exhibit any EPS symptoms trazodone 50mg qhs prn for insomnia. melatonin 5 mg qhs for sleep. lexapro 20 mg daily for mood/anxiety. buspar 10 mg bid for anxiety. Vistaril 25mg q 6hours prn for anxiety. Cogentin 0.5mg qhs for EPS symptoms has been discontinued -Ativan and Haldol PRN for agitation/aggression -NRT - nicotine patch - on board for discharge planning. Encourage patient to participate in groups to work on coping skills. Likely discharge once patient has a safe discharge plan and is placed. embroidery worker looking into discharge planning as patient is currently homeless. A Mini-Mental status was done to assistant case manager in placement APS [facility] plan for discharge given that patient has no income. Alden Casas M.D. Objective - Vital Signs Vital signs: Vital Signs Temp 97.9 F 10/17/23 06:46 Pulse 74 10/17/23 08:32 Resp 20 10/17/23 08:32 BP 135/67 10/17/23 08:32 Pulse Ox 97 10/15/23 06:46 FiO2
[2023-10-17] MEDS: ACETAMINOPHEN TAB 325 MG TAB PO PRN (17:08)
[2023-10-17] MEDS: MELATONIN 5 MG TABLET PO SCH (20:06)
[2023-10-17] MEDS: hydrOXYzine pamoate 25 MG CAP PO PRN (20:08)
[2023-10-18] MEDS: amLODIPine 10 MG TAB PO SCH (08:13)
[2023-10-18] MEDS: busPIRone HCl 10 MG TAB PO SCH ×2 (08:13→20:27)
[2023-10-18] MEDS: ESCITALOPRAM 20 MG TAB PO SCH (08:13)
[2023-10-18] MEDS: lamoTRIgine 25 MG TAB PO SCH ×2 (08:13→20:27)
[2023-10-18] MEDS: SULFAMETHOX-TMP 800-160MG 1 EACH TAB PO SCH ×2 (08:13→20:27)
--- NOTE | 2023-10-18 11:45 | P.PN ---
Subjective Progress Note Date: 10/18/23 Patient Name: Brenda Ward Date of : 1970 Patient Status: Inpatient Attending Provider: Lele Astorga Date: 09/28/23 Initialization Date: 10/14/23 09:48 Subjective Progress Note Date: 10/18/23 Principal diagnosis: Schizoaffective disorder Interval History: The patient was seen chart was reviewed and case discussed with the nursing staff The patient was seen in her room where she was just getting up She reports that she slept well Patient reports that she is feeling well and that she is ready to go home Patient stated that she is already been accepted at a senior living and that she is going home today However this issue was discussed with the staff in the medical staffing where no one seemed to be aware of any such plans being made here than the patient appears to be making assumptions or part of her delusional thinking and wishful thinking Patient exhibits no agitation or aggression at this time remains pleasant and concrete Medical problems: The patient was diagnosed with urinary tract infection and was running high fever she is being treated with antibiotics. Mental Status Exam: Patient is admits mild tremors of her hands General Appearance: Disheveled appearance Behavior: Patient is ambulating fairly well without any loss of any secondary movements Speech: Patient's speech is concrete, appropriate syntax Mood/Affect: Flat Suicidality/Homicidality: Patient denies having any suicidal or homicidal ideation intent or plan. Perceptions: Patient denies any visual hallucinations/auditory hallucinations Though content/process: There is no evidence of any delusional thought content. concrete. poverty of content, Able to give any clear responses regarding the chronology of her living situation Memory and concentration: AOX3, a good attention and stayed on topic Judgment and insight: Very concrete and simple Problem-solving skills are simple and concrete IMPRESSIONS: Schizoaffective disorder nicotine dependance homelessness Extraparametal symptoms PLAN: -Patient is admitted under voluntary status to MHU for stabilization of psychiatric symptoms and safety. Patient has signed adult voluntary form and medication consent and is placed in patient's chart. We'll continue the recommendations for medication management -Medications: Prolixin D was discontinued due to likely intolerance The recommendation is to restart PO prolixin in a weeks time if patient improves with EPS sx. He currently does not exhibit any EPS symptoms trazodone 50mg qhs prn for insomnia. melatonin 5 mg qhs for sleep. lexapro 20 mg daily for mood/anxiety. buspar 10 mg bid for anxiety. Vistaril 25mg q 6hours prn for anxiety. Cogentin 0.5mg qhs for EPS symptoms has been discontinued -Ativan and Haldol PRN for agitation/aggression -NRT - nicotine patch - on board for discharge planning. Encourage patient to participate in groups to work on coping skills. Likely discharge once patient has a safe discharge plan and is placed. welfare worker looking into discharge planning as patient is currently homeless. A Mini-Mental status was done to clinical trials assistant in placement APS communicating with [facility] to advise a plan for discharge given that patient has no income. The staff continues to look for appropriate placement for the patient at this time [facility] do not have any concrete placement facility that has accepted the patient for discharge yet The patient continues to need of current setting without which it would be discharged due to failure Continue assertiveness training and supportive care Alden Casas M.D. Objective - Vital Signs Vital signs: Vital Signs Temp 97.9 F 10/17/23 06:46 Pulse 88 10/18/23 08:12 Resp 20 10/17/23 08:32 BP 140/74 10/18/23 08:12 Pulse Ox 97 10/15/23 06:46 FiO2
[2023-10-18] MEDS: MELATONIN 5 MG TABLET PO SCH (20:27)
[2023-10-19] MEDS: busPIRone HCl 10 MG TAB PO SCH ×2 (09:01→20:38)
[2023-10-19] MEDS: amLODIPine 10 MG TAB PO SCH (09:01)
[2023-10-19] MEDS: ESCITALOPRAM 20 MG TAB PO SCH (09:01)
[2023-10-19] MEDS: lamoTRIgine 25 MG TAB PO SCH ×2 (09:01→20:38)
[2023-10-19] MEDS: SULFAMETHOX-TMP 800-160MG 1 EACH TAB PO SCH (09:01)
--- NOTE | 2023-10-19 10:14 | P.PN ---
Subjective Progress Note Date: 10/19/23 Patient Name: Brenda Ward Date of : 1970 Patient Status: Inpatient Attending Provider: Lele Astorga Date: 10/19/23 Initialization Date: 10/14/23 09:48 Subjective Progress Note Date: 10/19/23 Principal diagnosis: Schizoaffective disorder Interval History: The patient was seen chart was reviewed and case discussed with the nursing staff The patient was seen in her room where she was just getting up When asked about why patient thought that she was leaving yesterday and was so sure that she even knew that the [facility] was accepted her patient stated that she did not know why he Patient comes across as very concrete and simple She denies experiencing any auditory or visual hallucinations Insight into her problem remains poor Problem-solving skills are simple and concrete Mental Status Exam: Patient exhibits mild tremors of her hands General Appearance: Disheveled appearance ,dressed in street clothes Behavior: Patient is ambulating fairly well without any loss of any secondary movements Speech: Patient's speech is concrete, appropriate syntax Mood/Affect: Flat Suicidality/Homicidality: Patient denies having any suicidal or homicidal idea tion intent or plan. Perceptions: Patient denies any visual hallucinations/auditory hallucinations Though content/process: There is no evidence of any delusional thought content. concrete. poverty of content, Memory and concentration: AOX3, a good attention and stayed on topic Judgment and insight: Very concrete and simple Problem-solving skills are simple and concrete IMPRESSIONS: Schizoaffective disorder nicotine dependance homelessness Extraparametal symptoms PLAN: -Patient is admitted under voluntary status to MHU for stabilization of psychiatric symptoms and safety. Patient has signed adult voluntary form and medication consent and is placed in patient's chart. We'll continue the recommendations for medication management -Medications: Prolixin D was discontinued due to likely intolerance The recommendation is to restart PO prolixin in a weeks time if patient improves with EPS sx. sHe currently does not exhibit any EPS symptoms trazodone 50mg qhs prn for insomnia. melatonin 5 mg qhs for sleep. lexapro 20 mg daily for mood/anxiety. buspar 10 mg bid for anxiety. Lamictal 25 mg twice a day Vistaril 25mg q 6hours prn for anxiety. Cogentin 0.5mg qhs for EPS symptoms has been discontinued The suggestion was to start the patient on Prolixin although at this time patient is not experiencing any psychotic symptoms and remains on a mood stabilizer which appears to be adequate at this time -Ativan and Haldol PRN for agitation/aggression -NRT - nicotine patch - on board for discharge planning. Encourage patient to participate in groups to work on coping skills. Likely discharge once patient has a safe discharge plan and is placed. welfare case worker looking into discharge planning as patient is currently homeless. A Mini-Mental status was done to construction administrative assistant in placement APS communicating with [facility] to advise a plan for discharge given that patient has no income. The staff continues to look for appropriate placement for the patient at this time [facility] do not have any concrete placement facility that has accepted the patient for discharge yet The patient continues to need of current setting without which it would be discharged doomed to failure Continue assertiveness training and supportive care Alden Casas M.D. Objective - Vital Signs Vital signs: Vital Signs Temp 97.5 F L 10/19/23 06:47 Pulse 77 10/19/23 09:03 Resp 20 10/19/23 09:03 BP 108/75 10/19/23 09:03 Pulse Ox 97 10/15/23 06:46 FiO2
[2023-10-19] MEDS: MELATONIN 5 MG TABLET PO SCH (20:38)
[2023-10-20] MEDS: ESCITALOPRAM 20 MG TAB PO SCH (08:29)
[2023-10-20] MEDS: lamoTRIgine 25 MG TAB PO SCH ×2 (08:29→20:46)
[2023-10-20] MEDS: busPIRone HCl 10 MG TAB PO SCH ×2 (08:29→20:46)
[2023-10-20] MEDS: amLODIPine 10 MG TAB PO SCH (08:29)
--- NOTE | 2023-10-20 20:28 | P.PN ---
Progress Note - Text Progress Note Date: 10/20/23 Interval history: Patient was seen watching TV in the lounge with peers and was directable and agreeable to speak with adjusto writer operator. She reports good mood and denies any concerns currently. At this time, patient denies any suicidal or homicidal ideation, intent or plan. Denies any auditory or visual hallucinations. Patient denies any side effects from the medications and has been compliant with meds. Her Prolixin decanoate 25 mg q2 weeks was given on 10/05 and was not continued due to concern for EPS, however plan is to transition to oral Prolixin which we will consider for tomorrow. Mental status exam: General Appearance: Patient appears to be stated age is alert, directable, and cooperative. Behavior: No agitated behavior. Patient is calm and directable. Speech: Patient's speech is fluent and non-pressured. Mood/Affect: Mood is improving, affect is congruent and reactive. Suicidality/Homicidality: Patient denies having any suicidal or homicidal ideation intent or plan. Perceptions: Patient denies any auditory or visual hallucinations. Though content/process: There is no evidence of any delusional thought content and thought process is concrete. Memory and concentration: AOX3, grossly intact for the purposes of this session Judgment and insight: Improving mildly Assessment/Plan: Continue with current diagnosis. Patient continues to meet criteria for inpatient psychiatric admission for symptom stabilization and safety. Patient will be maintained on current psychotropic medication regimen. Will consider restarting Prolixin as 1 mg po BID possibly tomorrow. Monitor for medication compliance and for any psychotropic medication side effects. Will continue to monitor ongoing response to treatment. Encouraged participation in milieu.
[2023-10-20] MEDS: MELATONIN 5 MG TABLET PO SCH (20:46)
[2023-10-21] MEDS: lamoTRIgine 25 MG TAB PO SCH ×2 (08:46→20:26)
[2023-10-21] MEDS: busPIRone HCl 10 MG TAB PO SCH ×2 (08:46→20:25)
[2023-10-21] MEDS: ESCITALOPRAM 20 MG TAB PO SCH (08:46)
[2023-10-21] MEDS: amLODIPine 10 MG TAB PO SCH (08:46)
--- NOTE | 2023-10-21 19:41 | P.PN ---
Progress Note - Text Progress Note Date: 10/21/23 Interval history: Patient was seen resting in her room and was directable and agreeable to speak with junior technical writer. Her thoughts are concrete and simplistic. She tested positive for COVID last night and so was moved to a different room for isolation. Vitals signs reviewed and are normal. She denies shortness of breath or difficulty breathing. She reports good mood and denies any concerns currently. At this time, patient denies any suicidal or homicidal ideation, intent or plan. Denies any auditory or visual hallucinations. Patient denies any side effects from the medications and has been compliant with meds. Her Prolixin decanoate 25 mg q2 weeks was given on 10/05 and was not continued due to concern for EPS, however start Prolixin 1 mg BID today. Mental status exam: General Appearance: Patient appears to be stated age is alert, directable, and cooperative. Behavior: No agitated behavior. Patient is calm and directable. Speech: Patient's speech is fluent and non-pressured. Mood/Affect: Mood is improving, affect is congruent and reactive. Suicidality/Homicidality: Patient denies having any suicidal or homicidal ideation intent or plan. Perceptions: Patient denies any auditory or visual hallucinations. Though content/process: There is no evidence of any delusional thought content and thought process is concrete. Memory and concentration: AOX3, grossly intact for the purposes of this session Judgment and insight: Improving mildly Assessment/Plan: Continue with current diagnosis. Patient continues to meet criteria for inpatient psychiatric admission for symptom stabilization and safety. Restart Prolixin as 1 mg po BID today for psychosis/mood. Monitor for shortness of breath, difficulty breathing, chest pain or other worsening signs of COVID per hospital policy. Monitor for medication compliance and for any psychotropic medication side effec ts. Will continue to monitor ongoing response to treatment. Encouraged participation in milieu.
[2023-10-21] MEDS: MELATONIN 5 MG TABLET PO SCH (20:26)
[2023-10-22] MEDS: amLODIPine 10 MG TAB PO SCH (08:50)
[2023-10-22] MEDS: ESCITALOPRAM 20 MG TAB PO SCH (08:50)
[2023-10-22] MEDS: busPIRone HCl 10 MG TAB PO SCH ×2 (08:50→20:19)
[2023-10-22] MEDS: lamoTRIgine 25 MG TAB PO SCH ×2 (08:50→20:19)
--- NOTE | 2023-10-22 10:30 | P.PN ---
Progress Note - Text Progress Note Date: 10/22/23 Interval history: Patient was seen resting in her room and was directable and agreeable to speak with designer/writer. Patient claims that she is doing a bit better today. She appears to be more directable during conversation, clear thoughts. She states she is not having much of symptoms related to covid. States that her mood and anxiety. Mildly improving. Claims that she is not having any stiffness at all or problems with her gait. Vitals signs reviewed and are normal. She denies shortness of breath or difficulty breathing. She reports good mood and denies any concerns currently. At this time, patient denies any suicidal or homicidal ideation, intent or plan. Denies any auditory or visual hallucinations. States that she slept fairly last night. Patient denies any side effects from the medications and has been compliant with meds. Mental status exam: General Appearance: Patient appears to be stated age is alert, directable, and cooperative. Behavior: No agitated behavior. Patient is calm and directable. Speech: Patient's speech is fluent and non-pressured. [place] Mood/Affect: Mood is improving, affect is congruent and reactive. Suicidality/Homicidality: Patient denies having any suicidal or homicidal ideation intent or plan. Perceptions: Patient denies any auditory or visual hallucinations. Though content/process: There is no evidence of any delusional thought content and thought process is concrete. Memory and concentration: AOX3, grossly intact for the purposes of this session Judgment and insight: Improving mildly IMPRESSIONS: Schizoaffective disorder nicotine dependance homelessness Extraparametal symptoms PLAN: -Patient is admitted under voluntary status to MHU for stabilization of psychiatric symptoms and safety. Patient has signed adult voluntary form and medication consent and is placed in patient's chart. -Medications: Continue with Prolixin by mouth 1 mg twice a day for psychosis. trazodone 50mg qhs prn for insomnia. melatonin 5 mg qhs for sleep. lexapro 20 mg daily for mood/anxiety. buspar 10 mg bid for anxiety. Vistaril 25mg q 6hours prn for anxiety. Lamictal 25 mg twice a day for mood stabilization. Melatonin 5 mg daily at bedtime for sleep. -Ativan and Haldol PRN for agitation/aggression -NRT - nicotine patch -SW on board for discharge planning. Encourage patient to participate in groups to work on coping skills. Likely discharge once patient has a safe discharge plan and is placed. [employer] looking into discharge planning as patient is currently homeless. APS communicating with [facility] to advise a plan for discharge given that patient has no income.
[2023-10-22] MEDS: MELATONIN 5 MG TABLET PO SCH (20:19)
[2023-10-23] MEDS ORDERED: fluPHENAZine DECANOATE 25 MG/ML 5ML MDV IM SCH (08:00)
[2023-10-23] MEDS: lamoTRIgine 25 MG TAB PO SCH ×2 (08:19→20:05)
[2023-10-23] MEDS: amLODIPine 10 MG TAB PO SCH (08:19)
[2023-10-23] MEDS: busPIRone HCl 10 MG TAB PO SCH ×2 (08:19→20:05)
[2023-10-23] MEDS: ESCITALOPRAM 20 MG TAB PO SCH (08:19)
--- NOTE | 2023-10-23 11:06 | P.PN ---
Progress Note - Text Progress Note Date: 10/23/23 Interval history: Patient was seen resting in her room and was directable and agreeable to speak with music writer. Patient claims that she is doing pretty well today. She states she is not having any symptoms related to covid. States that her mood and anxiety are "pretty good", which is improving. Claims that she is not having any stiffness at all or problems with her gait. Vitals signs reviewed and are normal. She denies shortness of breath or difficulty breathing. She reports good mood and offers no other complaints. At this time, patient denies any suicidal or homicidal ideation, intent or plan. Denies any auditory or visual hallucinations. States that she slept well last night. Patient denies any side effects from the medications and has been compliant with meds. Mental status exam: General Appearance: Patient appears to be stated age is alert, directable, and cooperative. Behavior: No agitated behavior. Patient is calm and directable. Speech: Patient's speech is fluent and non-pressured. Mood/Affect: Mood is improving, affect is congruent and reactive. improving Suicidality/Homicidality: Patient denies having any suicidal or homicidal ideation intent or plan. Perceptions: Patient denies any auditory or visual hallucinations. Though content/process: There is no evidence of any delusional thought content and thought process is concrete. Memory and concentration: AOX3, grossly intact for the purposes of this session Judgment and insight: Improving IMPRESSIONS: Schizoaffective disorder nicotine dependance homelessness Extraparametal symptoms PLAN: -Patient is admitted under voluntary status to MHU for stabilization of psychiatric symptoms and safety. Patient has signed adult voluntary form and medication consent and is placed in patient's chart. -Medications: Prolixin by mouth 1 mg twice a day for psychosis. trazodone 50mg qhs prn for insomnia. melatonin 5 mg qhs for sleep. lexapro 20 mg daily for mood/anxiety. buspar 10 mg bid for anxiety. Vistaril 25mg q 6hours prn for anxiety. Lamictal 25 mg twice a day for mood stabilization. Melatonin 5 mg daily at bedtime for sleep. -Ativan and Haldol PRN for agitation/aggression -NRT - nicotine patch -SW on board for discharge planning. Encourage patient to participate in groups to work on coping skills. Likely discharge once patient has a safe discharge plan and is placed. psychiatric social worker looking into discharge planning as patient is currently homeless. APS communicating with cm and SW to advise a plan for discharge given that patient has no income. [employer] and APS may approve stay at local hotel/motel with ACT team/next step close follow up. hopeful for discharge tomorrow if this plan is approved.
[2023-10-23] MEDS: MELATONIN 5 MG TABLET PO SCH (20:05)
[2023-10-24] MEDS: lamoTRIgine 25 MG TAB PO SCH ×2 (08:17→20:21)
[2023-10-24] MEDS: busPIRone HCl 10 MG TAB PO SCH ×2 (08:17→20:21)
[2023-10-24] MEDS: amLODIPine 10 MG TAB PO SCH (08:17)
[2023-10-24] MEDS: ESCITALOPRAM 20 MG TAB PO SCH (08:17)
--- NOTE | 2023-10-24 12:09 | P.PN ---
Progress Note - Text Progress Note Date: 10/24/23 Interval history: Patient was seen resting in her room and was directable and agreeable to speak with press writer. Patient claims that she is doing well today. She states she is only having a sore throat related to covid. States that her mood and anxiety are "better" Vitals signs reviewed and are normal. She denies shortness of breath or difficulty breathing. she is fairly concrete. She reports good mood and offers no other complaints. At this time, patient denies any suicidal or homicidal ideation, intent or plan. Denies any auditory or visual hallucinations. States that she slept well last night, and her appetite is good. Patient denies any side effects from the medications and has been compliant with meds. Mental status exam: General Appearance: Patient appears to be stated age is alert, directable, and cooperative. Behavior: No agitated behavior. Patient is calm and directable. Speech: Patient's speech is fluent and non-pressured. Mood/Affect: Mood is improving, affect is congruent and reactive. improving Suicidality/Homicidality: Patient denies having any suicidal or homicidal ideation intent or plan. Perceptions: Patient denies any auditory or visual hallucinations. Though content/process: There is no evidence of any delusional thought content and thought process is concrete. Memory and concentration: AOX3, grossly intact for the purposes of this session Judgment and insight: Improving IMPRESSIONS: Schizoaffective disorder r/o intellectual disability nicotine dependance homelessness PLAN: -Patient is admitted under voluntary status to MHU for stabilization of psychiatric symptoms and safety. Patient has signed adult voluntary form and medication consent and is placed in patient's chart. -Medications: Prolixin by mouth 1 mg twice a day for psychosis. trazodone 50mg qhs prn for insomnia. melatonin 5 mg qhs for sleep. lexapro 20 mg daily for moo d/anxiety. buspar 10 mg bid for anxiety. Vistaril 25mg q 6hours prn for anxiety. Lamictal 25 mg twice a day for mood stabilization. Melatonin 5 mg daily at bedtime for sleep. -Ativan and Haldol PRN for agitation/aggression -NRT - nicotine patch -SW on board for discharge planning. Encourage patient to participate in groups to work on coping skills. Likely discharge once patient has a safe discharge plan and is placed. torpedo worker looking into discharge planning as patient is currently homeless. APS communicating with [facility] and to advise a plan for discharge given that patient has no income. [employer]ians and APS may approve stay at local hotel/motel with ACT team/next step close follow up. will need to havbe conference call with [facility] aps worker and janeth to discuss plan as patient is not being approved for shelter. hopeful for discharge tomorrow if this plan is approved.
[2023-10-24] MEDS: MELATONIN 5 MG TABLET PO SCH (20:21)
[2023-10-25] MEDS: busPIRone HCl 10 MG TAB PO SCH ×2 (08:11→20:13)
[2023-10-25] MEDS: lamoTRIgine 25 MG TAB PO SCH ×2 (08:11→20:12)
[2023-10-25] MEDS: ESCITALOPRAM 20 MG TAB PO SCH (08:11)
[2023-10-25] MEDS: amLODIPine 10 MG TAB PO SCH (08:11)
--- NOTE | 2023-10-25 10:27 | P.PN ---
Progress Note - Text Progress Note Date: 10/25/23 Interval history: Patient was seen resting in her room and was directable and agreeable to speak with telegraphic typewriter repairer. Patient claims that she is doing good today. She states she is no longer having any symptoms related to covid. States that her mood and anxiety are "better". Vitals signs reviewed and are normal. She denies shortness of breath or difficulty breathing. She reports good mood and offers no other complaints. At this time, patient denies any suicidal or homicidal ideation, intent or plan. Denies any auditory or visual hallucinations. States that she slept well last night, and her appetite is good. Patient denies any side effects from the medications and has been compliant with meds. Mental status exam: General Appearance: Patient appears to be stated age is alert, directable, and cooperative. Behavior: No agitated behavior. Patient is calm and directable. Speech: Patient's speech is fluent and non-pressured. Mood/Affect: Mood is improving, affect is congruent and reactive. improving Suicidality/Homicidality: Patient denies having any suicidal or homicidal ideation intent or plan. Perceptions: Patient denies any auditory or visual hallucinations. Though content/process: There is no evidence of any delusional thought content and thought process is concrete. Memory and concentration: AOX3, grossly intact for the purposes of this session Judgment and insight: Improving IMPRESSIONS: Schizoaffective disorder r/o intellectual disability nicotine dependance homelessness PLAN: -Patient is admitted under voluntary status to MHU for stabilization of psychiatric symptoms and safety. Patient has signed adult voluntary form and medication consent and is placed in patient's chart. -Medications: Prolixin by mouth 1 mg twice a day for psychosis. trazodone 50mg qhs prn for insomnia. melatonin 5 mg qhs for sleep. lexapro 20 mg daily for mood/anxiety. buspar 10 mg bid for anxiety. Vistaril 25mg q 6hours prn for anxiety. Lamictal 25 mg twice a day for mood stabilization. Melatonin 5 mg daily at bedtime for sleep. -Ativan and Haldol PRN for agitation/aggression -NRT - nicotine patch -SW on board for discharge planning. Encourage patient to participate in groups to work on coping skills. Likely discharge once patient has a safe discharge plan and is placed. tankroom worker looking into discharge planning as patient is currently homeless. APS communicating with cm and SW to advise a plan for discharge given that patient has no income. Possibly discharge to [facility] if she is accepted either today or tomorrow, if patient is accepted.
[2023-10-25] MEDS: MELATONIN 5 MG TABLET PO SCH (20:12)
[2023-10-26] MEDS: ESCITALOPRAM 20 MG TAB PO SCH (09:37)
[2023-10-26] MEDS: lamoTRIgine 25 MG TAB PO SCH ×2 (09:37→20:10)
[2023-10-26] MEDS: amLODIPine 10 MG TAB PO SCH (09:37)
[2023-10-26] MEDS: busPIRone HCl 10 MG TAB PO SCH ×2 (09:38→20:11)
--- NOTE | 2023-10-26 11:48 | P.PN ---
Progress Note - Text Progress Note Date: 10/26/23 Interval history: Patient was seen resting in her room and was directable and agreeable to speak with singer songwriter. Patient claims that she is doing pretty good today. She states she is no longer having any symptoms related to covid. States that her mood is alright, but she is feeling mildly anxious. Spoke with the patient about her discharge, and that the ACT team will be following her closely upon discharge. Patient agreeable to that plan. Vitals signs reviewed and are normal. She denies shortness of breath or difficulty breathing. She reports good mood and offers no other complaints. At this time, patient denies any suicidal or homicidal ideation, intent or plan. Denies any auditory or visual hallucinations. States that she slept well last night, and her appetite is good. Patient denies any side effects from the medications and has been compliant with meds. Mental status exam: General Appearance: Patient appears to be stated age is alert, directable, and cooperative. Behavior: No agitated behavior. Patient is calm and directable. Speech: Patient's speech is fluent and non-pressured. Mood/Affect: Mood is good, improving, affect is congruent and reactive. improving Suicidality/Homicidality: Patient denies having any suicidal or homicidal ideation intent or plan. Perceptions: Patient denies any auditory or visual hallucinations. Though content/process: There is no evidence of any delusional thought content and thought process is concrete. Memory and concentration: AOX3, grossly intact for the purposes of this session Judgment and insight: Improving IMPRESSIONS: Schizoaffective disorder r/o intellectual disability nicotine dependance homelessness PLAN: -Patient is admitted under voluntary status to MHU for stabilization of psychiatric symptoms and safety. Patient has signed adult voluntary form and medication consent and is placed in patient's chart. -Medications: Prolixin by mouth 1 mg twice a day for psychosis. trazodone 50mg qhs prn for insomnia. melatonin 5 mg qhs for sleep. lexapro 20 mg daily for mood/anxiety. buspar 10 mg bid for anxiety. Vistaril 25mg q 6hours prn for anxiety. Lamictal 25 mg twice a day for mood stabilization. Melatonin 5 mg daily at bedtime for sleep. -Ativan and Haldol PRN for agitation/aggression -NRT - nicotine patch -SW on board for discharge planning. Encourage patient to participate in groups to work on coping skills. APS communicating with cm and SW to advise a plan for discharge given that patient has no income. Patient does not qualify for [facility], due to her age. Likely discharge Sunday to a motel with ACT team/next step close follow up as already approved by both janeth and APS worker.
[2023-10-26] MEDS: MELATONIN 5 MG TABLET PO SCH (20:10)
[2023-10-27] MEDS: lamoTRIgine 25 MG TAB PO SCH ×2 (08:00→20:20)
[2023-10-27] MEDS: amLODIPine 10 MG TAB PO SCH (08:00)
[2023-10-27] MEDS: ESCITALOPRAM 20 MG TAB PO SCH (08:00)
[2023-10-27] MEDS: busPIRone HCl 10 MG TAB PO SCH ×2 (08:01→20:20)
--- NOTE | 2023-10-27 11:01 | P.PN ---
Progress Note - Text Progress Note Date: 10/27/23 Interval history: Patient was seen resting in her room and was directable and agreeable to speak with conventional underwriter. Patient claims that she is doing fair today and did not offer any overnight complaints. She states she is no longer having any symptoms related to covid. States that her mood is alright. Denies any anxiety today. Spoke with the patient about her discharge once again and the plan for discharge Sunday which she is okay with. She denies shortness of breath or difficulty breathing. She reports good mood and offers no other complaints. At this time, patient denies any suicidal or homicidal ideation, intent or plan. Denies any auditory or visual hallucinations. States that she slept well last night, and her appetite is good. Patient denies any side effects from the medications and has been compliant with meds. Mental status exam: General Appearance: Patient appears to be stated age is alert, directable, and cooperative. Behavior: No agitated behavior. Patient is calm and directable. Speech: Patient's speech is fluent and non-pressured. [place] Mood/Affect: Mood is good, improving, affect is congruent and reactive. improving Suicidality/Homicidality: Patient denies having any suicidal or homicidal ideation intent or plan. Perceptions: Patient denies any auditory or visual hallucinations. Though content/process: There is no evidence of any delusional thought content and thought process is concrete. Memory and concentration: AOX3, grossly intact for the purposes of this session Judgment and insight: Improving IMPRESSIONS: Schizoaffective disorder r/o intellectual disability nicotine dependance homelessness PLAN: -Patient is admitted under voluntary status to MHU for stabilization of psychiatric symptoms and safety. Patient has signed adult voluntary form and medication consent and is placed in patient's chart. -Medications: Prolixin by mouth 1 mg twice a day for psychosis. trazodone 50mg qhs prn for insomnia. melatonin 5 mg qhs for sleep. lexapro 20 mg daily for mood/anxiety. buspar 10 mg bid for anxiety. Vistaril 25mg q 6hours prn for anxi ety. Lamictal 25 mg twice a day for mood stabilization. Melatonin 5 mg daily at bedtime for sleep. -Ativan and Haldol PRN for agitation/aggression -NRT - nicotine patch -SW on board for discharge planning. Encourage patient to participate in groups to work on coping skills. APS communicating with cm and SW to advise a plan for discharge given that patient has no income. Patient does not qualify for [facility], due to her age. Discharge Sunday to a motel with ACT team/next step close follow up as already approved by both janeth and APS worker.
[2023-10-27] MEDS: MELATONIN 5 MG TABLET PO SCH (20:20)
[2023-10-28] MEDS: busPIRone HCl 10 MG TAB PO SCH ×2 (08:12→20:31)
[2023-10-28] MEDS: amLODIPine 10 MG TAB PO SCH (08:12)
[2023-10-28] MEDS: ESCITALOPRAM 20 MG TAB PO SCH (08:12)
[2023-10-28] MEDS: lamoTRIgine 25 MG TAB PO SCH ×2 (08:12→20:31)
--- NOTE | 2023-10-28 11:47 | P.PN ---
Progress Note - Text Progress Note Date: 10/28/23 Interval history: Patient was seen resting in her room and was directable and agreeable to speak with television script writer. Patient claims that she is doing fair today and did not offer any overnight complaints. Patient claims that she has been watching television. States that her mood is alright. She asked for further clarification on the plan for discharge tomorrow and television script writer attempted to explain it to her. Denies any anxiety today. She reports good mood and offers no other complaints. At this time, patient denies any suicidal or homicidal ideation, intent or plan. Denies any auditory or visual hallucinations. States that she slept well last night, and her appetite is good. Patient denies any side effects from the medications and has been compliant with meds. Mental status exam: General Appearance: Patient appears to be stated age is alert, directable, and cooperative. Behavior: No agitated behavior. Patient is calm and directable. Speech: Patient's speech is fluent and non-pressured. [place] Mood/Affect: Mood is good, improving, affect is congruent and reactive. improving Suicidality/Homicidality: Patient denies having any suicidal or homicidal ideation intent or plan. Perceptions: Patient denies any auditory or visual hallucinations. Though content/process: There is no evidence of any delusional thought content and thought process is concrete. Memory and concentration: AOX3, grossly intact for the purposes of this session Judgment and insight: Improving IMPRESSIONS: Schizoaffective disorder r/o intellectual disability nicotine dependance homelessness PLAN: -Patient is admitted under voluntary status to MHU for stabilization of psychiatric symptoms and safety. Patient has signed adult voluntary form and medication consent and is placed in patient's chart. -Medications: Prolixin by mouth 1 mg twice a day for psychosis. trazodone 50mg qhs prn for insomnia. melatonin 5 mg qhs for sleep. lexapro 20 mg daily for mood/anxiety. buspar 10 mg bid for anxiety. Vistaril 25mg q 6hours prn for anxiety. Lamictal 25 mg twice a day for mood stabilization. Melatonin 5 mg daily at bedtime for sleep. -Ativan and Haldol PRN for agitation/aggression -NRT - nicotine patch -SW on board for discharge planning. Encourage patient to participate in groups to work on coping skills. APS communicating with [facility] and SW to advise a plan for discharge given that patient has no income. Patient does not qualify for [facility], due to her age. Discharge Sunday to a motel with ACT team/next step close follow up as already approved by both janeth and APS worker.
[2023-10-28] MEDS: MELATONIN 5 MG TABLET PO SCH (20:31)
[2023-10-29 07:06] VITALS: RESP 18; TEMP 97.8
[2023-10-29] MEDS: ESCITALOPRAM 20 MG TAB PO SCH (08:21)
[2023-10-29] MEDS: busPIRone HCl 10 MG TAB PO SCH (08:21)
[2023-10-29] MEDS: lamoTRIgine 25 MG TAB PO SCH (08:21)
[2023-10-29] MEDS: amLODIPine 10 MG TAB PO SCH (08:21)
[2023-10-29 08:43] VITALS: BP 127/63; PULSE 71
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
== END 2023-10-29 13:43 | disposition home or self-care (01) | DRG 750 ==
LOC: 3MHU 16:45
PROVIDERS: ADMIT Psychiatry & Neurology Psychiatry; ATTEND Psychiatry & Neurology Psychiatry
DX: F25.9 Schizoaffective disorder, unspecified (principal); F17.200 Nicotine dependence, unspecified, uncomplicated; F06.4 Anxiety disorder due to known physiological condition; F32.A Depression, unspecified; G93.40 Encephalopathy, unspecified; I10 Essential (primary) hypertension; N39.0 Urinary tract infection, site not specified; T42.6X5A Adverse effect of other antiepileptic and sedative-hypnotic drugs, initial encounter; U07.1 COVID-19; Z59.00 Homelessness unspecified; Z79.899 Other long term (current) drug therapy; Z87.440 Personal history of urinary (tract) infections; Z88.0 Allergy status to penicillin; Z91.148 Patient's other noncompliance with medication regimen for other reason
CPT/HCPCS: 81001; 87086; 87635

== ENCOUNTER → 2024-01-03 | Outpatient (CLI) | payer OTHER ==
--- NOTE | 2024-01-07 00:03 | MM ---
Reason for Exam: Screening (asymptomatic). Last mammogram was performed 5 year(s) and 0 month(s) ago. Patient History: Menarche at age 9. Patient has no children. Paternal aunt had breast cancer at or over age 50. Last menstrual period: Risk Values: Michelle 5 year model risk: 1.4%. NCI Lifetime model risk: 9.9%. Tissue Density: The breasts are heterogeneously dense, which may obscure small masses. Findings: Analyzed By CAD. Multiple bilateral areas of asymmetric density and areas of nodularity. No priors are available to assess for stability. Further evaluation is recommended. No suspicious calcifications or other discrete abnormality is seen. Overall Assessment: Incomplete: need additional imaging evaluation, BI-RAD 0 Management: Special View Mammogram of both breasts. Diagnostic Breast Ultrasound of both breasts. . [facility] will attempt to contact patient to return for supplemental views and ultrasound if indicated. Electronically signed and approved by: Bessie Palomares M.D. Radiologist
== END | disposition home or self-care (01) ==
LOC: RADMAMWWP 11:29
PROVIDERS: ATTEND Internal Medicine
DX: Z12.31 Encounter for screening mammogram for malignant neoplasm of breast (principal); Z80.3 Family history of malignant neoplasm of breast
CPT/HCPCS: 77067

== ENCOUNTER → 2024-01-17 | Outpatient (CLI) | payer OTHER ==
--- NOTE | 2024-01-17 13:55 | MM ---
Reason for Exam: Additional evaluation requested from abnormal screening. Last screening mammogram was performed less than 1 month ago. Patient History: Menarche at age 9. Patient has no children. Postmenopausal. Paternal aunt had breast cancer at or over age 50. Risk Values: Michelle 5 year model risk: 1.4%. NCI Lifetime model risk: 9.9%. Prior Study Comparison: 01/03/2024 Bilateral MG screening mammo w CAD, [facility]. Tissue Density: The breasts are heterogeneously dense, which may obscure small masses. Findings: Analyzed By CAD. There is a 0.9 cm rounded density with partially obscured margins anterior left breast upper outer quadrant approximately 1 cm from the nipple. This is persistent on compression views. Additional workup with ultrasound is recommended. The additional findings on mammography appear to disperse under compression left and right breasts. No persistent suspicious spiculated or lobular mass is evident. Overall Assessment: Incomplete: need additional imaging evaluation, BI-RAD 0 Management: Diagnostic Breast Ultrasound of the left breast. A negative mammogram report should not preclude additional follow up of suspicious palpable abnormalities. Patient should continue monthly self breast exam. A clinical breast exam by your physician is recommended on an annual basis and results should be correlated with mammographic findings. Electronically signed and approved by: Lele Slaughter D.O. Radiologis
--- NOTE | 2024-01-17 14:39 | USB ---
Reason for Exam: Additional evaluation requested from abnormal screening. Patient History: Menarche at age 9. Patient has no children. Postmenopausal. Paternal aunt had breast cancer at or over age 50. Risk Values: Michelle 5 year model risk: 1.4%. NCI Lifetime model risk: 9.9%. Technique: Method: Targeted. Prior Study Comparison: 01/03/2024 Bilateral MG screening mammo w CAD, [facility]. Findings: The periareolar of the left breast, the axilla of the left breast and the retroareolar of the left breast were scanned. There is a 1.1 x 0.9 x 1.2 cm at the 12:00 position 1 cm from the nipple. At the 1:00 position there is a 1.1 x 0.7 x 1.2 cm hypoechoic area 1 cm from the nipple. Overall Assessment: Suspicious, BI-RAD 4 Management: Ultrasound Core Biopsy of the left breast. A clinical breast exam by your physician is recommended on an annual basis and results should be correlated with mammographic findings. This exam should not preclude additional follow-up of suspicious palpable abnormalities. Results were given to the patient verbally at the time of exam. Electronically signed and approved by: Lele Slaughter D.O. Radiologis
== END | disposition home or self-care (01) ==
LOC: RADMAMWWP 12:43
PROVIDERS: ATTEND Internal Medicine
DX: R92.333 Mammographic heterogeneous density, bilateral breasts (principal); Z78.0 Asymptomatic menopausal state; Z80.3 Family history of malignant neoplasm of breast
CPT/HCPCS: 77066; 76642; G0279; 77062

== ENCOUNTER → 2024-01-25 | Day surgery (SDC) | payer OTHER ==
--- NOTE | 2024-01-29 14:57 | MM ---
Reason for Exam: Post Procedure Mammogram. Last screening mammogram was performed less than 1 month ago. Patient History: Menarche at age 9. Patient has no children. Postmenopausal. Paternal aunt had breast cancer at or over age 50. Risk Values: Michelle 5 year model risk: 1.4%. NCI Lifetime model risk: 9.9%. Prior Study Comparison: 01/03/2024 Bilateral MG screening mammo w CAD, [facility]. 01/17/2024 Bilateral MG 3D work up w/cad CHENG, [facility]. 01/17/2024 Bilateral US breast workup limited , [facility]. Tissue Density: Left: The breasts are heterogeneously dense, which may obscure small masses. Pathology Description: Location: 12 o'clock. Marker Left Behind. Needle Type: Celero Cores: 3 Gauge: 12 Pathology Description: Location: 1 o'clock. Marker Left Behind. Needle Type: Celero Cores: 1 Gauge: 12 The procedure of ultrasound guided core biopsy was explained to the patient. Benefits, alternatives, and risks were discussed. An informed consent was then obtained. 2 site ultrasound core biopsy left breast 12 and 1:00 positions. The patient was placed in supine positioning for imaging and for the procedure. The overlying skin was prepped and draped in usual sterile fashion. Lidocaine buffered with bicarbonate was used as anesthetic into the skin and subcutaneous tissue up to area of concern in the 12:00 and 1:00 breast. A maria d was made with surgical scalpel. Under ultrasound guidance, a 12-gauge vacuum assisted biopsy gun device was used to obtain 3 core samples obtained from the 12:00 position and one sample from the left 1:00 position.. Following this, a biopsy clips were left in both lesions. The patient tolerated the procedure well without any immediate complication. The patient was kept in the radiology department for short stay after the procedure and then discharged home in stable condition. Postprocedure mammogram: The patient was transferred to mammography for physician ordered post procedure mammogram for clip placement verification. Impression: Probable complex cysts. Successful, uncomplicated ultrasound guided core biopsy of area of concern in the left 12 and 1:00 breast, full pathology results to follow. Pathology Results: Result: Benign, Fibroadipose tissue. Pathology and radiology were reviewed. Findings are concordant. A. LEFT BREAST, 12:00, 1 CM FROM NIPPLE, NEEDLE CORE BIOPSY: Benign cyst and adjacent fibroadipose tissue. B. LEFT BREAST, 1:00, 1 CM FROM NIPPLE, NEEDLE CORE BIOPSY: Amorphous/degenerated cellular material suggestive of cyst contents and adjacent benign fibroadipose tissue. Limited sample. Overall Assessment: Benign Assessment: MG diagnostic mammo LT wo CAD. - Left: Benign, BI-RAD 2. Management: Diagnostic Breast Ultrasound of the left breast in 6 months. Electronically signed and approved by: Venu Young M.D. Radiologis
== END ==
LOC: RADUSWWP 09:40
PROVIDERS: ATTEND Internal Medicine
DX: N60.02 Solitary cyst of left breast (principal); Z78.0 Asymptomatic menopausal state; Z80.3 Family history of malignant neoplasm of breast
CPT/HCPCS: 88305; 77065; 19083; 19084; A4648

== ENCOUNTER → 2024-02-01 | Outpatient (CLI) | payer OTHER ==
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
== END | disposition home or self-care (01) ==
LOC: RADUSWWP 07:55
PROVIDERS: ATTEND Internal Medicine
DX: R10.84 Generalized abdominal pain (principal); F20.9 Schizophrenia, unspecified; F31.9 Bipolar disorder, unspecified
CPT/HCPCS: 76700

== ENCOUNTER 2024-03-27 14:03 | Inpatient (IN) | payer MEDICAID, OTHER ==
--- NOTE | 2024-03-27 14:37 | ED ---
Anxiety HPI - General Chief Complaint: Recheck/Abnormal Lab/Rx Stated Complaint: mental health Time Seen by Provider: 03/27/24 14:24 Source: patient, RN notes reviewed Mode of arrival: EMS Limitations: no limitations - History of Present Illness Initial Comments: This is a 54 year old female who presents to the emergency department for anxiety. Patient takes multiple psychiatric medications and follows with [facility]. States that she is feeling particularly anxious. Her medication is working well but she is confused about the dosing and the number of tablets in her bottle. Patient is not making much sense and history is difficult to follow. Denies any suicidal or homicidal ideations. She is responding to internal stimuli. MD Complaint: anxiety - Related Data Home Medications: Home Medications Medication Instructions Recorded Confirmed amLODIPine [Norvasc] 5 mg PO DAILY 03/27/24 03/27/24 fluPHENAZine HCl 2.5 mg PO HS 03/27/24 03/27/24 hydrOXYzine pamoate [Vistaril] 25 mg PO BID 03/27/24 03/27/24 Previous Rx's Medication Instructions Recorded Escitalopram [Lexapro] 20 mg PO DAILY 30 Days #30 tab 10/29/23 Melatonin 5 mg PO HS 30 Days #30 tab 10/29/23 busPIRone HCl [Buspar] 10 mg PO BID 30 Days #60 tab 10/29/23 lamoTRIgine [LaMICtal] 25 mg PO BID 30 Days #60 tab 10/29/23 Allergies/Adverse Reactions: Allergies Allergy/AdvReac Type Severity Reaction Status Date / Time Penicillins Allergy Rash/Hives Verified 03/27/24 15:57 Review of Systems ROS Statement: Those systems with pertinent positive or pertinent negative responses have been documented in the HPI. ROS Other: All systems not noted in ROS Statement are negative. Past Medical History Past Medical History: Hypertension History of Any Multi-Drug Resistant Organisms: None Reported Past Surgical History: No Surgical Hx Reported Additional Past Surgical History / Comment(s): breast biopsy left benign in [facility] Past Anesthesia/Blood Transfusion Reactions: No Reported Reaction Past Psychological History: Bipolar, Schizoaffective Disorder Smoking Status: Current every day smoker Past Alcohol Use History: None Reported Past Drug Use History: None Reported - Past Family History Father Family Medical History: Unable to Obtain Mother Family Medical History: Unable to Obtain General Exam Limitations: no limitations General appearance: alert, anxious Head exam: Present: atraumatic, normocephalic, normal inspection Respiratory exam: Present: normal lung sounds bilaterally. Absent: respiratory distress, wheezes, rales, rhonchi, stridor Cardiovascular Exam: Present: regular rate, normal rhythm, normal heart sounds. Absent: systolic murmur, diastolic murmur, rubs, gallop, clicks Neurological exam: Present: alert, oriented X3, CN II-XII intact Psychiatric exam: Present: normal mood, anxious. Absent: homicidal ideation, suicidal ideation Skin exam: Present: warm, dry, intact, normal color. Absent: rash Course Vital Signs 03/27/24 03/27/24 14:08 21:30 Temperature 98.3 F 98.4 F Pulse Rate 75 76 Respiratory 18 16 Rate Blood Pressure 165/86 150/78 O2 Sat by Pulse 97 99 Oximetry Medical Decision Making - Medical Decision Making This is a 54 year old female who presents to the emergency department for anxiety. Was pt. sent in by a medical professional or institution? @ -No Did you speak to anyone other than the patient for history? @ -No Did you review nursing and triage notes? @ -Yes, and I agree, it is accurate with regards to the patient's symptoms. Were old charts reviewed? @ -No Differential Diagnosis? @ -Differential Mental Health: Depression, anxiety, bipolar, psychosis, schizophrenia, borderline personality, situational depression, adjustment disorder, behavioral disorder, brain tumor, malingering, substance abuse, encephalopathy, medication reaction, dementia, hypothyroidism, degenerative neurologic disorder, lupus.... This is not meant to be all-inclusive list EKG interpreted by me (3pts min.)? @ -Not obtained X-rays interpreted by me (1pt min.)? @ -Not obtained CT interpreted by me (1pt min.)? @ -Not obtained U/S interpreted by me (1pt. min.)? @ -Not obtained What testing was considered but not performed? (CT, X-rays, U/S, labs)? Why? @ -None What meds were considered but not given? Why? @ -None Did you discuss the management of the patient with other professionals? @ -Yes, Jamil with EPS, who advised that the patient will be admitted to the psychiatric unit for further care. Did you reconcile home meds? @ -No Was smoking cessation discussed for >3mins.? @ -No Was critical care preformed (if so, how long)? @ -No Were there social determinants of health that impacted care today? How? (Homelessness, low income, unemployed, alcoholism, drug addiction, transportation, low edu. Level, literacy, decrease access to med. care, shelter, rehab)? @ -No Was there de-escalation of care discussed even if they declined? (Discuss DNR or withdrawal of care, Hospice)? @ -No What co-morbidities impacted this encounter? (DM, HTN, Smoking, COPD, CAD, Cancer, CVA, Hep., AIDS, mental health diagnosis, sleep apnea, morbid obesity)? @ -Schizoaffective disorder Was patient admitted / discharged? @ -Admitted. Patient's BAT was 0.00 and she was clear for EPS evaluation. EPS advised that the patient was responding to internal stimuli and exhibiting signs of psychosis. EPS discussed the case with on-call psychiatry, who advised that the patient meets admission criteria due to worsening psychosis. Patient is agreeable to admission and will sign herself in voluntarily. She was admitted to [facility] on a voluntary basis for further psychiatric management. Undiagnosed new problem with uncertain prognosis? @ -None Drug Therapy requiring intensive monitoring for toxicity (Heparin, Nitro, Insulin, Cardizem)? @ -None Were any procedures done? @ -None Diagnosis/symptom? @ -Psychosis Acute, or Chronic, or Acute on Chronic? @ -Acute Uncomplicated (without systemic symptoms) or Complicated (systemic symptoms)? @ -Complicated Side effects of treatment? @ -None Exacerbation, Progression, or Severe Exacerbation] @ -Not applicable Poses a threat to life or bodily function? @ -Yes This case was discussed in detail with the attending ED physician, Dr. Jennings. Presentation, findings, and treatment plan discussed in detail as well. - Lab Data Result diagrams: 03/27/24 17:15 03/27/24 17:15 Lab Results 03/27/24 03/27/24 03/27/24 Range/Units 17:15 17:15 17:15 WBC 7.5 (3.8-10.6) k/uL RBC 5.70 H (3.80-5.40) m/uL Hgb 14.9 (11.4-16.0) gm/dL Hct 45.9 (34.0-46.0) % MCV 80.5 (80.0-100.0) fL MCH 26.1 (25.0-35.0) pg MCHC 32.5 (31.0-37.0) g/dL RDW 14.6 (11.5-15.5) % Plt Count 314 (150-450) k/uL MPV 7.3 Neutrophils % 69 % Lymphocytes % 21 % Monocytes % 4 % Eosinophils % 4 % Basophils % 1 % Neutrophils # 5.2 (1.3-7.7) k/uL Lymphocytes # 1.6 (1.0-4.8) k/uL Monocytes # 0.3 (0-1.0) k/uL Eosinophils # 0.3 (0-0.7) k/uL Basophils # 0.1 (0-0.2) k/uL Sodium 141 (137-145) mmol/L Potassium 4.2 (3.5-5.1) mmol/L Chloride 111 H (98-107) mmol/L Carbon Dioxide 25 (22-30) mmol/L Anion Gap 5 mmol/L BUN 14 (7-17) mg/dL Creatinine 0.94 (0.52-1.04) mg/dL Est GFR (CKD-EPI)AfAm 79 (>60 ml/min/1.73 sqM) Est GFR (CKD-EPI)NonAf 68 (>60 ml/min/1.73 sqM) Glucose 189 H (74-99) mg/dL Calcium 10.4 H (8.4-10.2) mg/dL Total Bilirubin 0.5 (0.2-1.3) mg/dL AST 24 (14-36) U/L ALT 23 (4-34) U/L Alkaline Phosphatase 99 (38-126) U/L Total Protein 6.6 (6.3-8.2) g/dL Albumin 4.1 (3.5-5.0) g/dL SARS-CoV-2 (PCR) Not Detected (Not Detectd) Disposition Clinical Impression: Psychosis, Schizoaffective disorder Disposition: ADMITTED IP TO THIS HOSP
[2024-03-27 17:48] LABS: Basophils # (A) 0.1 k/uL (0-0.2); Basophils % (A) 1 %; Eosinophils # (A) 0.3 k/uL (0-0.7); Eosinophils % (A) 4 %; HCT 45.9 % (34.0-46.0); HGB 14.9 gm/dL (11.4-16.0); Lymphocytes # (A) 1.6 k/uL (1.0-4.8); Lymphocytes % (A) 21 %; MCH 26.1 pg (25.0-35.0); MCHC 32.5 g/dL (31.0-37.0); MCV 80.5 fL (80.0-100.0); Mean Platelet Volume 7.3; Monocytes # (A) 0.3 k/uL (0-1.0); Monocytes % (A) 4 %; Neutrophils # (A) 5.2 k/uL (1.3-7.7); Neutrophils % (A) 69 %; Platelet Count 314 k/uL (150-450); RDW 14.6 % (11.5-15.5); WBC 7.5 k/uL (3.8-10.6)
[2024-03-27 17:59] LABS: ALT 23 U/L (4-34); AST 24 U/L (14-36); African American GFR (CKD) 79 (>60 ml/min/1.73 sqM); Albumin 4.1 g/dL (3.5-5.0); Alkaline Phosphatase 99 U/L (38-126); Anion Gap 5 mmol/L; Blood Urea Nitrogen 14 mg/dL (7-17); Calcium 10.4 mg/dL (8.4-10.2); Carbon Dioxide 25 mmol/L (22-30); Chloride 111 mmol/L (98-107); Glucose 189 mg/dL (74-99); Non-African American GFR(CKD) 68 (>60 ml/min/1.73 sqM); Potassium 4.2 mmol/L (3.5-5.1); Sodium 141 mmol/L (137-145); Total Bilirubin 0.5 mg/dL (0.2-1.3); Total Protein 6.6 g/dL (6.3-8.2)
[2024-03-27] MEDS ORDERED: MAGNESIUM HYDROXIDE 2,400 MG/30 ML CUP PO PRN (21:06)
[2024-03-27] MEDS ORDERED: ACETAMINOPHEN TAB 325 MG TAB PO PRN (21:06)
[2024-03-27] MEDS ORDERED: MAG HYDROX/AL HYDROX/SIMETH 355 ML BOTTLE PO PRN (21:06)
[2024-03-27] MEDS ORDERED: IBUPROFEN 600 MG TAB PO PRN (21:06)
[2024-03-27] MEDS ORDERED: HALOPERIDOL LACTATE 5 MG/ML 1 ML VIAL IM PRN (21:06)
[2024-03-27] MEDS ORDERED: LORazepam 2 MG/ML INJ IM PRN (21:06)
[2024-03-27] MEDS ORDERED: LORazepam 1 MG TAB PO PRN (21:06)
[2024-03-27] MEDS ORDERED: haloperidoL 5 MG TAB PO PRN (22:00)
[2024-03-27] MEDS: MELATONIN 5 MG TABLET PO SCH (22:04)
[2024-03-27] MEDS: hydrOXYzine pamoate 25 MG CAP PO SCH (22:04)
[2024-03-27] MEDS: busPIRone HCl 10 MG TAB PO SCH (22:04)
[2024-03-27] MEDS: lamoTRIgine 25 MG TAB PO SCH (22:04)
[2024-03-28] MEDS: amLODIPine 5 MG TAB PO SCH (10:07)
[2024-03-28] MEDS: ESCITALOPRAM 20 MG TAB PO SCH (10:08)
--- NOTE | 2024-03-28 10:17 | P.HP ---
Psychiatric H&P - . H&P Date: 03/28/24 History & Physical: Allergies Allergy/AdvReac Type Severity Reaction Status Date / Time Penicillins Allergy Rash/Hives Verified 03/27/24 15:57 Vital Signs Temp 97.1 F L 03/28/24 06:42 Pulse 73 03/28/24 10:09 Resp 20 03/28/24 06:42 BP 132/92 03/28/24 10:09 Pulse Ox 95 03/28/24 06:42 FiO2 Intake & Output 03/27/24 03/28/24 03/28/24 18:59 06:59 18:59 Weight 86.183 kg 84.085 kg Laboratory Last Values WBC 7.5 k/uL (3.8-10.6) 03/27/24 17:15 RBC 5.70 m/uL (3.80-5.40) H 03/27/24 17:15 Hgb 14.9 gm/dL (11.4-16.0) 03/27/24 17:15 Hct 45.9 % (34.0-46.0) 03/27/24 17:15 MCV 80.5 fL (80.0-100.0) 03/27/24 17:15 MCH 26.1 pg (25.0-35.0) 03/27/24 17:15 MCHC 32.5 g/dL (31.0-37.0) 03/27/24 17:15 RDW 14.6 % (11.5-15.5) 03/27/24 17:15 Plt Count 314 k/uL (150-450) 03/27/24 17:15 MPV 7.3 03/27/24 17:15 Neutrophils % 69 % 03/27/24 17:15 Lymphocytes % 21 % 03/27/24 17:15 Monocytes % 4 % 03/27/24 17:15 Eosinophils % 4 % 03/27/24 17:15 Basophils % 1 % 03/27/24 17:15 Neutrophils # 5.2 k/uL (1.3-7.7) 03/27/24 17:15 Lymphocytes # 1.6 k/uL (1.0-4.8) 03/27/24 17:15 Monocytes # 0.3 k/uL (0-1.0) 03/27/24 17:15 Eosinophils # 0.3 k/uL (0-0.7) 03/27/24 17:15 Basophils # 0.1 k/uL (0-0.2) 03/27/24 17:15 Sodium 141 mmol/L (137-145) 03/27/24 17:15 Potassium 4.2 mmol/L (3.5-5.1) 03/27/24 17:15 Chloride 111 mmol/L (98-107) H 03/27/24 17:15 Carbon Dioxide 25 mmol/L (22-30) 03/27/24 17:15 Anion Gap 5 mmol/L 03/27/24 17:15 BUN 14 mg/dL (7-17) 03/27/24 17:15 Creatinine 0.94 mg/dL (0.52-1.04) 03/27/24 17:15 Est GFR (CKD-EPI)AfAm 79 (>60 ml/min/1.73 sqM) 03/27/24 17:15 Est GFR (CKD-EPI)NonAf 68 (>60 ml/min/1.73 sqM) 03/27/24 17:15 Glucose 189 mg/dL (74-99) H 03/27/24 17:15 Calcium 10.4 mg/dL (8.4-10.2) H 03/27/24 17:15 Total Bilirubin 0.5 mg/dL (0.2-1.3) 03/27/24 17:15 AST 24 U/L (14-36) 03/27/24 17:15 ALT 23 U/L (4-34) 03/27/24 17:15 Alkaline Phosphatase 99 U/L (38-126) 03/27/24 17:15 Total Protein 6.6 g/dL (6.3-8.2) 03/27/24 17:15 Albumin 4.1 g/dL (3.5-5.0) 03/27/24 17:15 TSH 2.610 mIU/L (0.465-4.680) 03/28/24 07:47 SARS-CoV-2 (PCR) Not Detected (Not Detectd) 03/27/24 17:15 03/28/24 10:16 Psychiatric Evaluation Identifying Data: Ms. Ward is 54years old, , white female, who lives in [place] in a custodial. Her in a NH in [place]. Chief Complaint: I am not sure of my medications History of Psychiatric Illness- The patient noted that her mind was racing, talking to God. The patient noted that the God was talking about judgement. The patient noted that she was having theses experiences for 3 day, She was clear how long she was missing medications and which medications. She noted that she was getting anxious and worried. The patient called the EMS and came to the hospital for help. The patients last admission to this hospital was in September,. The patient noted that she started hearing voices in her 30s. She had no psychiatric issues prior to that. The patient was admitted to [facility] in [place], [place]. She has had 12 admissions since then to different hospitals. Her last admission was to this hospital. She stated seeking help through [facility] in between hospitalizations. Her major symptoms prior to hospitalizations were hearing voices and depression. The patient never had suicidal ideations or attempts in the past. She ho SI or HI ideations at present. Past Psychiatric History: As stated above. Past Medication History: Risperdal, Cymbalta, Prozac, and Invega. She has been on several other medications but does not remember the names. She does remember having bad side effects from any of the listed medications. The believes the current combination is working the best. Leading questions: The patient admitted to Depression and Anxiety. Denied SI or HI. Admitted to hearing voices. Denied symptoms consistent with delusions. Drugs and alcohol history: The patient denied. Tobacco use: Smokes 6 cigarettes Past Medical history: HTN. Family History of Psychiatric Disorder: The patient denied. Social History and Family History: The patient was born and raised in [place], [place]. She grew-up with 3 siblings. She finished [employer] job for 14 years working for [employer]. She is for 25 years. She has no children. OTC: Tylenol Allergies: PNC Objective: MSE: Alert and attentive. Orientation times three Dressed and Groomed: Appropriately. Pleasant and cooperative. Psychomotor Activity: Normal. Speech: Normal in tone, quality, and quantity. Mood: Anxious and depressed. Affect: Concerned and blunted. SI or HI: None. Perceptual disturbance: The patient has been hearing voices of God and talking to him. Thought Content: No paranoia or other delusional thinking noted. Thought Process: Normal. Cognition: Intact Judgment and Insight: Poor AIMS: Normal Labs: Available labs reviewed. Diagnosis: Schizoaffective Disorder Plan and Recommendations: Continue current Medications. Monitor MS and side effects of medications and adjust medications accordingly. Provide supportive psychotherapy and psychoeducation. The patient provided psychoeducation. The patient provided with substance abuse counselling and advised to attend AA/NA Smoke cessation therapy. The patient to attend [facility]. Lipid Profile, HbA1c, EKG. Medication Consent with explanation of risk/benefits and side effects: Explained and obtained.
[2024-03-28 11:20] LABS: Appearance,Urine Clear (Clear); Bilirubin,Urine Negative (Negative); Blood,Urine Negative (Negative); Cocaine Screen,Urine Not Detected (NotDetected); Color,Urine Colorless; Glucose,Urine (UA) Negative (Negative); Ketones,Urine Negative (Negative); Leukocyte Esterase,Urine Negative (Negative); Mucus,Urine Occasional /hpf; Nitrite,Urine Negative (Negative); Phencyclidine Screen,Urine Not Detected (NotDetected); Protein,Urine 2+ (Negative); RBC,Urine <1 /hpf (0-5); Specific Gravity,Urine 1.018 (1.001-1.035); Squamous Epithelial Cell,Urine 1 /hpf (0-4); Urn Cannabinoid Scrn Not Detected (NotDetected); Urobilinogen,Urine <2.0 mg/dL (<2.0); WBC,Urine 3 /hpf (0-5)
[2024-03-28 11:21] LABS: Amphetamine Screen,Urine Not Detected (NotDetected); Barbiturate Screen,Urine Not Detected (NotDetected); Benzodiazepines Screen,Urine Not Detected (NotDetected); Methadone Screen, Urine Not Detected (NotDetected); Opiate Screen,Urine Not Detected (NotDetected); Oxycodone Screen, Urine Not Detected (NotDetected); Tricyclic Antidepressant,Urine Not Detected (NotDetected)
--- NOTE | 2024-03-28 13:46 | P.HPIM ---
History of Present Illness H&P Date: 03/28/24 Brenda Ward, is a 54-year-old female who presented to [facility] emergency room with a chief complaint of worsening anxiety, patient has a known history of schizoaffective disorder, [facility], and is maintained on multiple psychiatric medications, she stated that her medications were not working, she was evaluated in the emergency room and admitted to the psychiatry unit for further evaluation and treatment, medical consultation was requested for medical management while hospitalized. Her past medical history is significant for history of hypertension, history of left breast benign cyst, with biopsy last year, history of schizoaffective disor annia, and history of brain meningioma, last MRI done 6 months ago Her social history is significant for daily tobacco use, she denies any alcohol or drug use. Past Medical History Past Medical History: Hypertension History of Any Multi-Drug Resistant Organisms: None Reported Past Surgical History: No Surgical Hx Reported Additional Past Surgical History / Comment(s): breast biopsy left benign in [facility] Past Anesthesia/Blood Transfusion Reactions: No Reported Reaction Past Psychological History: Bipolar, Schizoaffective Disorder Smoking Status: Current every day smoker Past Alcohol Use History: None Reported Past Drug Use History: None Reported - Past Family History Father Family Medical History: Unable to Obtain Mother Family Medical History: Unable to Obtain Medications and Allergies Home Medications Medication Instructions Recorded Confirmed Type Escitalopram [Lexapro] 20 mg PO DAILY 30 Days #30 tab 10/29/23 03/27/24 Rx Melatonin 5 mg PO HS 30 Days #30 tab 10/29/23 03/27/24 Rx busPIRone HCl [Buspar] 10 mg PO BID 30 Days #60 tab 10/29/23 03/27/24 Rx lamoTRIgine [LaMICtal] 25 mg PO BID 30 Days #60 tab 10/29/23 03/27/24 Rx amLODIPine [Norvasc] 5 mg PO DAILY 03/27/24 03/27/24 History fluPHENAZine HCl 2.5 mg PO HS 03/27/24 03/27/24 History hydrOXYzine pamoate [Vistaril] 25 mg PO BID 03/27/24 03/27/24 History Allergies Allergy/AdvReac Type Severity Reaction Status Date / Time Penicillins Allergy Rash/Hives Verified 03/27/24 15:57 Physical Exam Vitals: Vital Signs Temp Pulse Pulse Resp BP BP Pulse Ox 03/28/24 10:09 73 132/92 03/28/24 06:42 97.1 F L 59 L 20 134/71 95 03/27/24 22:01 98 F 55 L 18 190/84 98 03/27/24 21:30 98.4 F 76 16 150/78 99 03/27/24 14:08 98.3 F 75 18 165/86 97 Intake and Output 03/27/24 03/28/24 03/28/24 22:59 06:59 14:59 Other: Weight 84.085 kg In general patient is alert and oriented x 3 in no distress HEENT head normocephalic and atraumatic Neck is supple no JVD no goiter no lymphadenopathy no carotid bruit Chest examination is clear to auscultation no crackles no wheezing Cardiac exam reveals regular heart sounds S1 and S2 no gallops no murmurs Abdomen is soft nontender no organomegaly with normal bowel sounds Extremity exam reveals no edema no cyanosis or clubbing Neurological examination reveals no gross focal deficits Results CBC & Chem 7: 03/27/24 17:15 03/27/24 17:15 Labs: Abnormal Lab Results - Last 24 Hours (Table) 03/27/24 03/27/24 03/28/24 Range/Units 17:15 17:15 07:47 RBC 5.70 H (3.80-5.40) m/uL Chloride 111 H (98-107) mmol/L Glucose 189 H (74-99) mg/dL Hemoglobin A1c 7.1 H (<=6.0) % Calcium 10.4 H (8.4-10.2) mg/dL Urine Protein (Negative) Urine Mucus (None) /hpf 03/28/24 Range/Units 10:52 RBC (3.80-5.40) m/uL Chloride (98-107) mmol/L Glucose (74-99) mg/dL Hemoglobin A1c (<=6.0) % Calcium (8.4-10.2) mg/dL Urine Protein 2+ H (Negative) Urine Mucus Occasional H (None) /hpf Thrombosis Risk Factor Assmnt - Choose All That Apply Any of the Below Risk Factors Present?: Yes Each Factor Represents 1 point: Age 41-60 years, Obesity (BMI >25) Thrombosis Risk Factor Assessment Total Risk Factor Score: 2 Thrombosis Risk Factor Assessment Level: Low Risk Assessment and Plan Plan: Worsening anxiety with racing thoughts, patient was admitted to the psychiatry unit for evaluation and adjustment of medications Underlying history of schizoaffective disorder Underlying history of hypertension Underlying history of benign left breast cyst Underlying history of brain meningioma At this time patient was seen and examined Labs were reviewed Hemoglobin A1c was 7.1, which is a new finding for patient She was restarted on amlodipine for hypertension I will add metformin for diabetes mellitus which is a new diagnosis for Diabetic diet, and counseling regarding new onset diabetes. Will follow during this admission for medical management
[2024-03-28 18:17] LABS: LDL Cholesterol,Calculated 108.9 mg/dL (0.0-131.0)
[2024-03-29] MEDS: metFORMIN 500 MG TAB PO SCH (08:55)
--- NOTE | 2024-03-30 09:25 | P.PN ---
Subjective Progress Note Date: 03/29/24 Principal diagnosis: Diagnosis: Schizoaffective disorder Patient Name: Brenda Ward Date of : 1970 Patient Status: Inpatient Attending Provider: vAila Chapman Date: 03/29/24 Initialization Date: 03/28/24 10:16 Subjective data: The patient was seen and chart was reviewed and case discussed with nursing staff She was unclear how long she was missing medications and which medications. She noted that she was getting anxious and worried. The patient called the EMS and came to the hospital for help. The patients last admission to this hospital was in September,. . She has had 12 admissions since then to different hospitals. She stated seeking help through [facility] in between hospitalizations. Her major symptoms prior to hospitalizations were hearing voices and depression. Denies any suicidal ideations or attempts Longest job for 14 years working for [employer]. She is for 25 years. She has no children. Past Psychiatric History: As stated above. Past Medication History: Risperdal, Cymbalta, Prozac, and Invega. She has been on several other medications but does not remember the names. She finished HS. OTC: Tylenol Allergies: PNC Objective: MSE: Alert and attentive. Orientation times three Dressed and Groomed: Appropriately. Pleasant and cooperative. Psychomotor Activity: Normal. Speech: Normal in tone, quality, and quantity. Mood: Anxious and depressed. Affect: Concerned and blunted. SI or HI: None. Perceptual disturbance: The patient has been hearing voices of God and talking to him. Thought Content: No paranoia or other delusional thinking noted. Thought Process: Normal. Cognition: Intact Judgment and Insight: Poor AIMS: Normal Labs: Available labs reviewed. Diagnosis: Schizoaffective Disorder Plan and Recommendations: Continue current Medications. Monitor MS and side effects of medications and adjust medications accordingly. Provide supportive psychotherapy and psychoeducation. The patient provided psychoeducation. The patient provided with substance abuse counselling and advised to attend AA/NA Smoke cessation therapy. The patient to attend [facility]. Lipid Profile, HbA1c, EKG. Medication Consent with explanation of risk/benefits and side effects: Explained and obtained. Alden Casas MD Objective - Vital Signs Vital signs: Vital Signs Temp 97.9 F 03/30/24 06:07 Pulse 72 03/30/24 08:34 Resp 18 03/30/24 06:07 BP 126/70 03/30/24 08:34 Pulse Ox 99 03/30/24 06:07 FiO2 - Labs CBC & Chem 7: 03/27/24 17:15 03/27/24 17:15
--- NOTE | 2024-03-30 09:26 | P.PN ---
Subjective Progress Note Date: 03/30/24 Principal diagnosis: Diagnosis: Schizoaffective disorder Patient Name: Brenda Ward Date of : 1970 Patient Status: Inpatient Attending Provider: Avila Chapman Date: 03/30/24 Initialization Date: 03/28/24 10:16 Subjective data: The patient was seen and chart was reviewed and case discussed with nursing staff The interview was very similar to the one from yesterday No major change seen in patient's general demeanor and interaction She reports that emotionally she is feeling somewhat better and she states that the water trills sedation seems to be better controlled She admits that she needs to be more careful about taking her medications on a regular basis Past Psychiatric History: As stated above. Past Medication History: Risperdal, Cymbalta, Prozac, and Invega. She has been on several other medications but does not remember the names. She finished HS. OTC: Tylenol Allergies: PNC Objective: MSE: Alert and attentive. Orientation times three Dressed and Groomed: Appropriately. Pleasant and cooperative. Psychomotor Activity: Normal. Speech: Normal in tone, quality, and quantity. Mood: Anxious and depressed. Affect: Concerned and blunted. SI or HI: None. Perceptual disturbance: The patient has been hearing voices of God and talking to him. Thought Content: No paranoia or other delusional thinking noted. Thought Process: Normal. Cognition: Intact Judgment and Insight: Poor AIMS: Normal Labs: Available labs reviewed. Diagnosis: Schizoaffective Disorder Plan and Recommendations: Continue current Medications. Monitor MS and side effects of medications and adjust medications accordingly. Provide supportive psychotherapy and psychoeducation. The patient provided psychoeducation. The patient provided with substance abuse counselling and advised to attend AA /NA Smoke cessation therapy. The patient to attend [facility]. Lipid Profile, HbA1c, EKG. Medication Consent with explanation of risk/benefits and side effects: Explained and obtained. Alden Casas MD Objective - Vital Signs Vital signs: Vital Signs Temp 97.9 F 03/30/24 06:07 Pulse 72 03/30/24 08:34 Resp 18 03/30/24 06:07 BP 126/70 03/30/24 08:34 Pulse Ox 99 03/30/24 06:07 FiO2 - Labs CBC & Chem 7: 03/27/24 17:15 03/27/24 17:15
[2024-03-30] MEDS: NICOTINE GUM (POLACRILEX) 2 MG GUM BUCCAL PRN (18:50)
--- NOTE | 2024-03-31 15:13 | P.PN ---
Progress Note - Text Progress Note Date: 03/31/24 Follow-up Mediation Review Chief Complaint: I am feeling much better Subjective: The patient noted that she came to the hospital because of getting mixed-up and distracted.. The noted that she was not taking her medications properly because of unclear thinking and hearing voices. She was seeing things and demons in the atmosphere. The patient was distracted by this. She was hearing voices saying that she would be judged and go to hell. judged, go to hell. She states that these experiences have gone away now. She states that being on medications has helped. She noted that she had similar experience in September,. The patient has been attending the groups. The participation is good. The interaction with staff and peers good. The patient is compliant with treatment recommendations. Leading questions: The patient /admitted to Depression and Anxiety. Denied SI or HI. Denied symptoms consistent with psychosis Sleep and Appetite: Fair. Change in family/ living/job/financial/daily routine: No change. Change in medical condition: No change. Change in medications: No change. Side effects from Medications: None. Allergies: No change. Objective- MSE: Alert and attentive. Orientation times three. Dressed and Groomed: Appropriately. Pleasant and cooperative. Psychomotor Activity: Normal. Speech: Normal in tone, quality, and quantity. Mood: Depressed and anxious. Affect: Appropriate to the mood. SI or HI: None. Perceptual disturbance: None. Thought Content: No paranoia or other delusional thinking noted. Thought Process: Normal. Cognition: Intact Judgment and Insight: Fair. AIMS: Normal. Labs: No new labs. Diagnosis: No change. Plan and Recommendations: Continue current Medications. Monitor MS and side effects of medications and adjust medications accordingly. Provide supportive psychotherapy. The patient provided psychoeducation and advised Smoke cessation therapy. The patient to attend camacho activities. Medication Consent with explanation of risk/benefits and side effects: Explained and obtained.
[2024-03-31] MEDS: traZODone HCL 50 MG TAB PO SCH (21:36)
--- NOTE | 2024-04-01 20:53 | P.PN ---
Progress Note - Text Progress Note Date: 04/01/24 Follow-up Mediation Review Chief Complaint: I am feeling good. Subjective: The patient reported doing good. She stated that she is close to her normal self. The patient will [facility] back [facility]. The patient had no complaints. She reported no side effects. The patient has been attending the groups. The participation is good. The interaction with staff and peers good. The patient is compliant with treatment recommendations. Leading questions: The patient admitted to Depression and Anxiety. Denied SI or HI. Denied symptoms consistent with psychosis Sleep and Appetite: Fair. Change in family/ living/job/financial/daily routine: No change. Change in medical condition: No change. Change in medications: No change. Side effects from Medications: None. Allergies: No change. Objective- MSE: Alert and attentive. Orientation times three. Dressed and Groomed: Appropriately. Pleasant and cooperative. Psychomotor Activity: Normal. Speech: Normal in tone, quality, and quantity. Mood: Depressed and anxious. Affect: Appropriate to the mood. SI or HI: None. Perceptual disturbance: None. Thought Content: No paranoia or other delusional thinking noted. Thought Process: Normal. Cognition: Intact Judgment and Insight: Fair. AIMS: Normal. Labs: No new labs. Diagnosis: No change. Plan and Recommendations: Continue current Medications. Monitor MS and side effects of medications and adjust medications accordingly. Provide supportive psychotherapy. The patient provided psychoeducation and advised Smoke cessation therapy. The patient to attend camacho activities. Medication Consent with explanation of risk/benefits and side effects: Explained and obtained.
[2024-04-02 06:43] VITALS: TEMP 97.7
--- NOTE | 2024-04-02 12:18 | P.PN ---
Progress Note - Text Progress Note Date: 04/02/24 Follow-up Mediation Review Chief Complaint: I am good. Subjective: The patient reported doing good. The patient noted that her aunt and pick her tomorrow when discharged. She had no complaints. She reported no side effects. The patient has been attending the groups. The participation is good. The interaction with staff and peers good. The patient is compliant with treatment recommendations. Leading questions: The patient admitted to Depression and Anxiety. Denied SI or HI. Denied symptoms consistent with psychosis Sleep and Appetite: Fair. Change in family/ living/job/financial/daily routine: No change. Change in medical condition: No change. Change in medications: No change. Side effects from Medications: None. Allergies: No change. Objective- MSE: Alert and attentive. Orientation times three. Dressed and Groomed: Appropriately. Pleasant and cooperative. Psychomotor Activity: Normal. Speech: Normal in tone, quality, and quantity. Mood: Depressed and anxious. Affect: Appropriate to the mood. SI or HI: None. Perceptual disturbance: None. Thought Content: No paranoia or other delusional thinking noted. Thought Process: Normal. Cognition: Intact Judgment and Insight: Fair. AIMS: Normal. Labs: No new labs. Diagnosis: No change. Plan and Recommendations: Continue current Medications. Monitor MS and side effects of medications and adjust medications accordingly. Provide supportive psychotherapy. The patient provided psychoeducation and advised Smoke cessation therapy. The patient to attend camacho activities. Medication Consent with explanation of risk/benefits and side effects: Explained and obtained.
[2024-04-03 07:00] VITALS: RESP 16
[2024-04-03 09:30] VITALS: BP 125/71; PULSE 73
--- NOTE | 2024-04-03 13:18 | P.DS ---
Providers Date of admission: 03/27/24 21:04 Expected date of discharge: 04/03/24 Attending physician: Avila Chapman MD Consults: 03/27/24 21:06 Consult Physician Routine Consulting Provider: April Porter Consult Reason/Comments: medical management Do you want consulting provider notified?: Yes, Notify in am Primary care physician: April Porter - Discharge Diagnosis(es) (1) Schizoaffective disorder Current Visit: Yes Status: Acute Priority: High Hospital Course: Discharge Summary HPI: The patient noted that her mind was racing, talking to God. The patient noted that the God was talking about judgement. The patient noted that she was having theses experiences for 3 day, She was clear how long she was missing medications and which medications. She noted that she was getting anxious and worried. The patient called the EMS and came to the hospital for help. The patients last admission to this hospital was in September,. The patient noted that she started hearing voices in her 30s. She had no psychiatric issues prior to that. The patient was admitted to [facility] in [place], [place]. She has had 12 admissions since then to different hospitals. Her last admission was to this hospital. She stated seeking help through [facility] in between hospitalizations. Her major symptoms prior to hospitalizations were hearing voices and depression. The patient never had suicidal ideations or attempts in the past. She ho SI or HI ideations at present. Past Psychiatric History: As stated above. Past Medication History: Risperdal, Cymbalta, Prozac, and Invega. She has been on several other medications but does not remember the names. She does remember having bad side effects from any of the listed medications. The believes the current combination is working the best. Leading questions: The patient admitted to Depression and Anxiety. Denied SI or HI. Admitted to hearing voices. Denied symptoms consistent with delusions. Drugs and alcohol history: The patient denied. Tobacco use: Smokes 6 cigarettes Hospital Course: After admission, the patient was involved in pharmacotherapy, camacho milieu, and individual psychodynamic psychotherapy. The patient was started on Lexapro, Prolixin, Lamictal, Trazodone and Buspar. The dose was titrated to obtain the desire effects. The patient tolerated medications well without any side effects. The patient was also involved in camacho activities. The patient attended the groups and participated well. The patient interacted with peers and staff well. The patient slowly started showing improvement. The hospital course was uneventful. The patient symptoms of depression, suicidal and homicidal ideations abated. The psychosis improved. The patient was stable to be discharged to out- patient care. The patient did not have any guns or weapons in possession at home. MSE: Alert and attentive. Orientation times three Dressed and Groomed: Appropriately. Pleasant and cooperative. Psychomotor Activity: Normal. Speech: Normal in tone, quality, and quantity. Mood: Anxious and depressed. Affect: Concerned and blunted. SI or HI: None. Perceptual disturbance: The patient has been hearing voices of God and talking to him. Thought Content: No paranoia or other delusional thinking noted. Thought Process: Normal. Cognition: Intact Judgment and Insight: Poor AIMS: Normal Diagnosis: Schizoaffective Disorder Plan: The patient to be discharged today. The patient has attained good improvement since admission. He is stable to be followed as an outpatient. The patient is not suicidal or Homicidal. He does not pose any harm to self or others. The patient remains at a greater risk of self-harm or harm to others than general population on a chronic basis due to psychiatric illness and substance abuse. The patient will continue taking following medication post discharge. The importance of medication compliance and maintaining regular appointments at psychiatric out-pt and PCP clinic was explained and encouraged. The patient was also advised to seek alcohol counseling and attend AA/NA meetings. The understood and agreed with the recommendations. encyclopedia research worker to arrange for and conduct family meeting to ensure safety upon discharge and answer any questions. The social media marketing manager to arrange for patients follow-up appointments at [facility] for psychiatric care along with follow-up with PCP. The patient provided psychoeducation. Advised to call 911 or go to nearest ED or call this hospital in case of acute worsening of symptomatology, severe side effects or having suicidal, homicidal thoughts and feeling unsafe at home. Patient Condition at Discharge: Stable Plan - Discharge Summary Discharge Rx Participant: Yes New Discharge Prescriptions: New traZODone HCL [Desyrel] 50 mg PO HS 15 Days #15 tab metFORMIN HCL [Glucophage] 500 mg PO W/BRKFST 15 Days #15 tab lamoTRIgine [LaMICtal] 25 mg PO BID 15 Days #30 tab fluPHENAZine [Prolixin] 2.5 mg PO HS 15 Days #15 tab busPIRone HCl [Buspar] 10 mg PO BID 15 Days #30 tab Escitalopram [Lexapro] 20 mg PO DAILY 15 Days #15 tab Melatonin 5 mg PO HS 15 Days #15 tab hydrOXYzine pamoate [Vistaril] 25 mg PO BID 15 Days #30 cap Continue amLODIPine [Norvasc] 5 mg PO DAILY Discontinued busPIRone HCl [Buspar] 10 mg PO BID 30 Days #60 tab fluPHENAZine HCl 2.5 mg PO HS hydrOXYzine pamoate [Vistaril] 25 mg PO BID lamoTRIgine [LaMICtal] 25 mg PO BID 30 Days #60 tab Escitalopram [Lexapro] 20 mg PO DAILY 30 Days #30 tab Melatonin 5 mg PO HS 30 Days #30 tab Discharge Medication List amLODIPine [Norvasc] 5 mg PO DAILY 03/27/24 [History] Escitalopram [Lexapro] 20 mg PO DAILY 15 Days #15 tab 04/03/24 [Rx] Melatonin 5 mg PO HS 15 Days #15 tab 04/03/24 [Rx] busPIRone HCl [Buspar] 10 mg PO BID 15 Days #30 tab 04/03/24 [Rx] fluPHENAZine [Prolixin] 2.5 mg PO HS 15 Days #15 tab 04/03/24 [Rx] hydrOXYzine pamoate [Vistaril] 25 mg PO BID 15 Days #30 cap 04/03/24 [Rx] lamoTRIgine [LaMICtal] 25 mg PO BID 15 Days #30 tab 04/03/24 [Rx] metFORMIN HCL [Glucophage] 500 mg PO W/BRKFST 15 Days #15 tab 04/03/24 [Rx] traZODone HCL [Desyrel] 50 mg PO HS 15 Days #15 tab 04/03/24 [Rx] Follow up Appointment(s)/Referral(s): [facility] [Outside] - 04/07/24 4:00 pm (04/04/2024 4:00PM - 5:00PM KHANH CURIEL 04/07/2024 10:30AM - 11:00AM April Packer MD [Primary Care Provider] - 1-2 days Patient Instructions/Handouts: How to Stop Smoking (DC), Schizoaffective Disorder (DC) Activity/Diet/Wound Care/Special Instructions: Avoid the use of street drugs and alcohol. Take all medications as prescribed. When you are in need of refills on your medications, please contact your medical provider and/or outpatient psychiatrist/provider to have this done. Please go to your scheduled outpatient appointment for aftercare treatment. If symptoms r eturn or become worse, call the crisis line at and/or go to the nearest emergency room for evaluation. National Suicide Hotline 988 Discharge Disposition: HOME SELF-CARE
== END 2024-04-03 13:27 | disposition home or self-care (01) | DRG 750 ==
LOC: EEVIPCON 14:03 → EC 14:03 → 3MHU 21:04
PROVIDERS: ADMIT Psychiatry & Neurology Psychiatry; ATTEND Psychiatry & Neurology Psychiatry
DX: F25.9 Schizoaffective disorder, unspecified (principal); E11.9 Type 2 diabetes mellitus without complications; F17.210 Nicotine dependence, cigarettes, uncomplicated; I10 Essential (primary) hypertension; Z59.01 Sheltered homelessness; Z79.899 Other long term (current) drug therapy; Z11.52 Encounter for screening for COVID-19; Z28.21 Immunization not carried out because of patient refusal; Z88.0 Allergy status to penicillin; Z86.69 Personal history of other diseases of the nervous system and sense organs
CPT/HCPCS: 36415; 80053; 80061; 80175; 80306; 81001; 82075; 83036; 84443; 85025; 87635; 99285

== ENCOUNTER 2024-04-27 12:53 | Emergency (ER) | payer OTHER ==
--- NOTE | 2024-04-27 14:22 | ED ---
Skin/Abscess/FB HPI - General Chief complaint: Skin/Abscess/Foreign Body Stated complaint: Rash Time Seen by Provider: 04/27/24 14:19 Source: patient, RN notes reviewed Mode of arrival: ambulatory Limitations: no limitations - History of Present Illness Initial comments: 54-year-old female presenting with rash x 4 days. States she has had itchy, burning red bumps on her right thigh, left thigh, abdomen, and right arm. Denies fever, chills vomiting. She has never had this before. Denies any recent hiking, camping, or exposure to brush. She believes it may be bedbugs but has not visualized any bugs. Denies family members with similar symptoms. - Related Data Home Medications Medication Instructions Recorded Confirmed amLODIPine [Norvasc] 5 mg PO DAILY 03/27/24 03/27/24 Previous Rx's Medication Instructions Recorded Escitalopram [Lexapro] 20 mg PO DAILY 15 Days #15 tab 04/03/24 Melatonin 5 mg PO HS 15 Days #15 tab 04/03/24 busPIRone HCl [Buspar] 10 mg PO BID 15 Days #30 tab 04/03/24 fluPHENAZine [Prolixin] 2.5 mg PO HS 15 Days #15 tab 04/03/24 hydrOXYzine pamoate [Vistaril] 25 mg PO BID 15 Days #30 cap 04/03/24 lamoTRIgine [LaMICtal] 25 mg PO BID 15 Days #30 tab 04/03/24 metFORMIN HCL [Glucophage] 500 mg PO W/BRKFST 15 Days #15 tab 04/03/24 traZODone HCL [Desyrel] 50 mg PO HS 15 Days #15 tab 04/03/24 Hydrocortisone Cream 1 applic TOPICAL BID #28 gm 04/27/24 [Hydrocortisone 2.5% Cream] diphenhydrAMINE [Benadryl] 50 mg PO QID PRN #20 capsule 04/27/24 Allergies Allergy/AdvReac Type Severity Reaction Status Date / Time Penicillins Allergy Rash/Hives Verified 03/27/24 15:57 Review of Systems ROS Statement: Those systems with pertinent positive or pertinent negative responses have been documented in the HPI. ROS Other: All systems not noted in ROS Statement are negative. Past Medical History Past Medical History: Diabetes Mellitus, Hypertension History of Any Multi-Drug Resistant Organisms: None Reported Past Surgical History: No Surgical Hx Reported Additional Past Surgical History / Comment(s): breast biopsy left benign in [facility] Past Anesthesia/Blood Transfusion Reactions: No Reported Reaction Past Psychological History: Bipolar, Schizoaffective Disorder Smoking Status: Current every day smoker Past Alcohol Use History: None Reported Past Drug Use History: None Reported - Past Family History Father Family Medical History: Unable to Obtain Mother Family Medical History: Unable to Obtain General Exam Limitations: no limitations General appearance: alert, in no apparent distress Head exam: Present: atraumatic, normocephalic, normal inspection Extremities exam: Present: normal inspection, full ROM, normal capillary refill. Absent: tenderness, pedal edema, joint swelling, calf tenderness Neurological exam: Present: alert, oriented X3 Psychiatric exam: Present: normal affect, normal mood Skin exam: Present: warm, dry, intact, normal color, rash (Scattered, blanching erythematous plaques present on anterior and posterior aspect of right thigh, anterior left thigh, lower abdomen, and right forearm. No tenderness or drainage) Course Vital Signs 04/27/24 04/27/24 13:08 14:57 Temperature 97.7 F 98.1 F Pulse Rate 63 68 Respiratory 16 18 Rate Blood Pressure 125/83 136/68 O2 Sat by Pulse 98 97 Oximetry Medical Decision Making - Medical Decision Making Was pt. sent in by a medical professional or institution (KRISS Torres, COPYWRITER, urgent care, hospital, or custodial...) When possible be specific @ -No Did you speak to anyone other than the patient for history (EMS, parent, family, police, friend...)? What history was obtained from this source @ -No Did you review nursing and triage notes (agree or disagree)? Why? @ -I reviewed and agree with nursing and triage notes Were old charts reviewed (outside hosp., previous admission, EMS record, old EKG, old radiological studies, urgent care reports/EKG's, custodial records)? Report findings @ -No old charts were reviewed Differential Diagnosis (chest pain, altered mental status, abdominal pain women, abdominal pain men, vaginal bleeding, weakness, fever, dyspnea, syncope, headache, dizziness, GI bleed, back pain, seizure, CVA, palpatations, mental health, musculoskeletal)? @ -Bedbugs, contact dermatitis, scabies, poison oak, eczema, cellulitis, abscess EKG interpreted by me (3pts min.). @ -None X-rays interpreted by me (1pt min.). @ -None done CT interpreted by me (1pt min.). @ -None done U/S interpreted by me (1pt. min.). @ -None done What testing was considered but not performed or refused? (CT, X-rays, U/S, labs)? Why? @ -None What meds were considered but not given or refused? Why? @ -Patient was offered IM Benadryl/steroids however patient declines Did you discuss the management of the patient with other professionals (professionals i.e. , PA, COPYWRITER, lab, RT, psych nurse, manager social media, necktie turner, teacher, staff readiness officer, therapeutic case manager)? Give summary @ -No Was smoking cessation discussed for >3mins.? @ -No Was critical care preformed (if so, how long)? @ -No Were there social determinants of health that impacted care today? How? (Homelessness, low income, unemployed, alcoholism, drug addiction, transportation, low edu. Level, literacy, decrease access to med. care, custodial, rehab)? @ -No Was there de-escalation of care discussed even if they declined (Discuss DNR or withdrawal of care, Hospice)? DNR status @ -No What co-morbidities impacted this encounter? (DM, HTN, Smoking, COPD, CAD, Cancer, CVA, ARF, Chemo, Hep., AIDS, mental health diagnosis, sleep apnea, morbid obesity)? @ -None Was patient admitted / discharged? Hospital course, mention meds given and route, prescriptions, significant lab abnormalities, going to OR and other pertinent info. @ -Patient was discharged. Patient was seen and evaluated for rash x 4 days. Upon examination there are scattered erythematous round plaques with intense pruritus. No sign of bacterial infection. Patient declines IM Benad ryl/steroids. Discussed diagnosis of bug bites. Discussed importance of washing all bed sheets, pillowcases, blankets in hot, soapy water. Prescribed Benadryl and topical steroids for symptom relief. Advise close follow-up with PCP within the week for reevaluation. Patient is agreeable to plan. Strict return parameters discussed. Case discussed with my attending Dr. Alas. patient was discharged in stable condition. Undiagnosed new problem with uncertain prognosis? @ -No Drug Therapy requiring intensive monitoring for toxicity (Heparin, Nitro, Insulin, Cardizem)? @ -No Were any procedures done? @ -No Diagnosis/symptom? @ -Bug bites, rash Acute, or Chronic, or Acute on Chronic? @ -Acute Uncomplicated (without systemic symptoms) or Complicated (systemic symptoms)? @ -Uncomplicated Side effects of treatment? @ -No Exacerbation, Progression, or Severe Exacerbation? @ -No Poses a threat to life or bodily function? How? (Chest pain, [place], [place], pneumonia, PE, COPD, DKA, ARF, appy, cholecystitis, CVA, Diverticulitis, Homicidal, Suicidal, threat to staff... and all critical care pts) @ -No Disposition Clinical Impression: Bug bites Disposition: HOME SELF-CARE Condition: Stable Instructions (If sedation given, give patient instructions): Bed Bugs (ED) Additional Instructions: Wash all sheets, pillowcases, and blankets with hot, soapy water. Use Benadryl as needed for itching. Apply hydrocortisone cream to affected areas twice daily for 7 days. Please return to the Emergency Department if symptoms worsen or any other concerns. Prescriptions: diphenhydrAMINE [Benadryl] 50 mg PO QID PRN #20 capsule PRN Reason: Itching Hydrocortisone Cream [Hydrocortisone 2.5% Cream] 1 applic TOPICAL BID #28 gm Is patient prescribed a controlled substance at d/c from ED?: No Referrals: April Porter MD [Primary Care Provider] - 1-2 days Time of Disposition: 14:37
[2024-04-27 14:59] VITALS: BP 136/68; PULSE 68; RESP 18; TEMP 98.1
== END 2024-04-27 19:00 | disposition home or self-care (01) ==
LOC: EC 12:53
DX: S70.362A Insect bite (nonvenomous), left thigh, initial encounter (principal); F17.200 Nicotine dependence, unspecified, uncomplicated; Z88.0 Allergy status to penicillin; W57.XXXA Bitten or stung by nonvenomous insect and other nonvenomous arthropods, initial encounter
CPT/HCPCS: 99282

== ENCOUNTER 2024-09-15 15:25 | Emergency (ER) | payer MEDICARE, OTHER ==
--- NOTE | 2024-09-15 16:28 | ED ---
Fall HPI - General Chief Complaint: Fall Stated Complaint: Fall Time Seen by Provider: 09/15/24 16:25 Source: EMS, RN notes reviewed Mode of arrival: EMS - History of Present Illness Initial Comments: 54-year-old female presenting with fall 2 hours ago. States she was walking on a sidewalk when she suddenly became disoriented, causing her to fall forward, hitting her face on the cement. Denies loss of consciousness. Endorses headache. She states she has had this disorientation before and believes it is due to her psychiatric medications. Has been able to ambulate since the fall. Denies chest pain, shortness of breath, abdominal pain. Last tetanus unknown. Denies blood thinners. Denies history of cardiac conditions. - Related Data Home Medications Medication Instructions Recorded Confirmed amLODIPine [Norvasc] 5 mg PO DAILY 03/27/24 03/27/24 Previous Rx's Medication Instructions Recorded Escitalopram [Lexapro] 20 mg PO DAILY 15 Days #15 tab 04/03/24 Melatonin 5 mg PO HS 15 Days #15 tab 04/03/24 busPIRone HCl [Buspar] 10 mg PO BID 15 Days #30 tab 04/03/24 fluPHENAZine [Prolixin] 2.5 mg PO HS 15 Days #15 tab 04/03/24 hydrOXYzine pamoate [Vistaril] 25 mg PO BID 15 Days #30 cap 04/03/24 lamoTRIgine [LaMICtal] 25 mg PO BID 15 Days #30 tab 04/03/24 metFORMIN HCL [Glucophage] 500 mg PO W/BRKFST 15 Days #15 tab 04/03/24 traZODone HCL [Desyrel] 50 mg PO HS 15 Days #15 tab 04/03/24 Hydrocortisone Cream 1 applic TOPICAL BID #28 gm 04/27/24 [Hydrocortisone 2.5% Cream] diphenhydrAMINE [Benadryl] 50 mg PO QID PRN #20 capsule 04/27/24 Allergies Allergy/AdvReac Type Severity Reaction Status Date / Time Penicillins Allergy Rash/Hives Verified 09/15/24 15:34 Review of Systems ROS Statement: Those systems with pertinent positive or pertinent negative responses have been documented in the HPI. ROS Other: All systems not noted in ROS Statement are negative. Past Medical History Past Medical History: Diabetes Mellitus, Hypertension History of Any Multi-Drug Resistant Organisms: None Reported Past Surgical History: No Surgical Hx Reported Additional Past Surgical History / Comment(s): breast biopsy left benign in [facility] Past Anesthesia/Blood Transfusion Reactions: No Reported Reaction Past Psychological History: Bipolar, Schizoaffective Disorder Smoking Status: Current every day smoker Past Alcohol Use History: None Reported Past Drug Use History: None Reported - Past Family History Father Family Medical History: Unable to Obtain Mother Family Medical History: Unable to Obtain General Exam Limitations: no limitations General appearance: alert, in no apparent distress Head exam: Present: normocephalic, other (Abrasions present on nose and chin) Eye exam: Present: normal appearance, PERRL, EOMI. Absent: scleral icterus, conjunctival injection, periorbital swelling ENT exam: Present: normal exam, mucous membranes moist Neck exam: Present: normal inspection. Absent: tenderness, meningismus, lymphadenopathy Respiratory exam: Present: normal lung sounds bilaterally. Absent: respiratory distress, wheezes, rales, rhonchi, stridor Cardiovascular Exam: Present: regular rate, normal rhythm, normal heart sounds. Absent: systolic murmur, diastolic murmur, rubs, gallop, clicks GI/Abdominal exam: Present: soft, normal bowel sounds. Absent: distended, tenderness, guarding, rebound, rigid Neurological exam: Present: alert, oriented X3, CN II-XII intact Psychiatric exam: Present: normal affect, normal mood Skin exam: Present: warm, dry, intact, normal color. Absent: rash Course Vital Signs 09/15/24 09/15/24 09/15/24 15:29 17:57 18:41 Temperature 97.7 F 97.6 F 97.7 F Pulse Rate 53 L 51 L 53 L Respiratory 18 16 17 Rate Blood Pressure 146/82 173/85 140/84 O2 Sat by Pulse 96 97 97 Oximetry Medical Decision Making - Medical Decision Making Was pt. sent in by a medical professional or institution (, PA, TIE CUTTER, urgent care, hospital, or fpc...) When possible be specific @ -No Did you speak to anyone other than the patient for history (EMS, parent, family, police, friend...)? What history was obtained from this source @ -No Did you review nursing and triage notes (agree or disagree)? Why? @ -I reviewed and agree with nursing and triage notes Were old charts reviewed (outside hosp., previous admission, EMS record, old EKG, old radiological studies, urgent care reports/EKG's, fpc records)? Report findings @ -No old charts were reviewed Differential Diagnosis (chest pain, altered mental status, abdominal pain women, abdominal pain men, vaginal bleeding, weakness, fever, dyspnea, syncope, headache, dizziness, GI bleed, back pain, seizure, CVA, palpatations, mental health, musculoskeletal)? @ -Differential Musculoskeletal Muscular strain, contusion, ligament sprain, fracture, arthritis, septic arthritis, bursitis, cellulitis, muscle spasm, nerve compression, DVT, arterial occlusion, herpes zoster, electrolyte abnormality, tumor.... This is not meant to be in all inclusive list Differential Syncope: Valvular disease, hypertrophic cardiomyopathy, pulmonary embolism, tamponade, tachycardia, bradycardia, MN, hypovolemia, hemorrhage, dissection, anemia, intracranial hemorrhage, seizure, hypoglycemia, carbon monoxide poisoning, this is not meant to be an all-inclusive list. EKG interpreted by me (3pts min.). @ -As above X-rays interpreted by me (1pt min.). @ -Chest x-ray reveals no acute process CT interpreted by me (1pt min.). @ -CT brain, C-spine, and facial bones reveal no acute process U/S interpreted by me (1pt. min.). @ -None done What testing was considered but not performed or refused? (CT, X-rays, U/S, labs)? Why? @ -None What meds were considered but not given or refused? Why? @ -None Did you discuss the management of the patient with other professionals (professionals i.e. , PA, TIE CUTTER, lab, RT, psych nurse, socially responsible investment adviser, brim presser, teacher, operational intelligence officer, pillowcase cleaner)? Give summary @ -No Was smoking cessation discussed for >3mins.? @ -No Was critical care preformed (if so, how long)? @ -No Were there social determinants of health that impacted care today? How? (Homelessness, low income, unemployed, alcoholism, drug addiction, transportation, low edu. Level, literacy, decrease access to med. care, prison, rehab)? @ -No Was there de-escalation of care discussed even if they declined (Discuss DNR or withdrawal of care, Hospice)? DNR status @ -No What co-morbidities impacted this encounter? (DM, HTN, Smoking, COPD, CAD, Cancer, CVA, ARF, Chemo, Hep., AIDS, mental health diagnosis, sleep apnea, morbid obesity)? @ -None Was patient admitted / discharged? Hospital course, mention meds given and route, prescriptions, significant lab abnormalities, going to OR and other pertinent info. @ -Discharge. This is a 54-year-old female presenting with fall prior to arrival with head injury. Patient reports she became disoriented causing her to fall onto her face on the cement. Denies loss of consciousness. Denies blood thinners. Denies chest pain, shortness of breath, abdominal pain. Patient is bradycardic at 53 bpm, otherwise vital signs within acceptable limits. Physical examination remarkable for multiple abrasions on face, however no other obvious signs of trauma. Neurological examination unremarkable. EKG reveals sinus bradycardia with no ST changes. Lab work unremarkable. CT brain, C-spine, and facial bones reveals no acute process. Results discussed with patient. Advise close follow-up with PCP for bradycardia and further evaluation. Appropriate return precautions discussed with patient. She is agreeable to plan. Case was discussed with my ED attending Dr. Alas. Undiagnosed new problem with uncertain prognosis? @ -No Drug Therapy requiring intensive monitoring for toxicity (Heparin, Nitro, Insulin, Cardizem)? @ -No Were any procedures done? @ -No Diagnosis/symptom? @ -Fall, head injury with severe headache Acute, or Chronic, or Acute on Chronic? @ -Acute Uncomplicated (without systemic symptoms) or Complicated (systemic symptoms)? @ -Uncomplicated Side effects of treatment? @ -No Exacerbation, Progression, or Severe Exacerbation? @ -No Poses a threat to life or bodily function? How? (Chest pain, USA, MN, pneumonia, PE, COPD, DKA, ARF, appy, cholecystitis, CVA, Diverticulitis, Homicidal, Suicidal, threat to staff... and all critical care pts) @ -Unlikely at this time - Lab Data Result diagrams: 09/15/24 16:53 09/15/24 16:53 Lab Results 09/15/24 09/15/24 09/15/24 Range/Units 16:53 16:53 16:53 WBC 7.4 (3.8-10.6) k/uL RBC 5.79 H (3.80-5.40) m/uL Hgb 15.6 (11.4-16.0) gm/dL Hct 48.8 H (34.0-46.0) % MCV 84.4 (80.0-100.0) fL MCH 26.9 (25.0-35.0) pg MCHC 31.9 (31.0-37.0) g/dL RDW 14.5 (11.5-15.5) % Plt Count 313 (150-450) k/uL MPV 6.9 Neutrophils % 75 % Lymphocytes % 16 % Monocytes % 4 % Eosinophils % 3 % Basophils % 1 % Neutrophils # 5.6 (1.3-7.7) k/uL Lymphocytes # 1.2 (1.0-4.8) k/uL Monocytes # 0.3 (0-1.0) k/uL Eosinophils # 0.2 (0-0.7) k/uL Basophils # 0.0 (0-0.2) k/uL Sodium 143 (137-145) mmol/L Potassium 5.0 (3.5-5.1) mmol/L Chloride 109 H (98-107) mmol/L Carbon Dioxide 27 (22-30) mmol/L Anion Gap 7 mmol/L BUN 16 (7-17) mg/dL Creatinine 1.07 H (0.52-1.04) mg/dL Est GFR (CKD-EPI)AfAm 68 (>60 ml/min/1.73 sqM) Est GFR (CKD-EPI)NonAf 59 (>60 ml/min/1.73 sqM) Glucose 82 (74-99) mg/dL Calcium 10.5 H (8.4-10.2) mg/dL Total Bilirubin 0.6 (0.2-1.3) mg/dL AST 21 (14-36) U/L ALT 19 (4-34) U/L Alkaline Phosphatase 92 (38-126) U/L Troponin I <0.012 (0.000-0.034) ng/mL Total Protein 7.4 (6.3-8.2) g/dL Albumin 4.7 (3.5-5.0) g/dL - EKG Data -: EKG Interpreted by Me EKG Comments: EKG reveals sinus bradycardia with no ST changes. Ventricular rate 52 bpm, DE interval 197, QRS duration 120, QT/QTc 419/398 Disposition Clinical Impression: Fall, Traumatic injury of head with severe headache Disposition: HOME SELF-CARE Condition: Stable Additional Instructions: Follow-up with PCP as discussed. Please return to the Emergency Department if symptoms worsen or any other concerns. Is patient prescribed a controlled substance at d/c from ED?: No Referrals: April Porter MD [Primary Care Provider] - 1-2 days Time of Disposition: 18:30
[2024-09-15 17:06] LABS: Basophils % (A) 1 %; Eosinophils # (A) 0.2 k/uL (0-0.7); Eosinophils % (A) 3 %; HCT 48.8 % (34.0-46.0); HGB 15.6 gm/dL (11.4-16.0); Lymphocytes # (A) 1.2 k/uL (1.0-4.8); Lymphocytes % (A) 16 %; MCH 26.9 pg (25.0-35.0); MCHC 31.9 g/dL (31.0-37.0); MCV 84.4 fL (80.0-100.0); Mean Platelet Volume 6.9; Monocytes # (A) 0.3 k/uL (0-1.0); Monocytes % (A) 4 %; Neutrophils # (A) 5.6 k/uL (1.3-7.7); Neutrophils % (A) 75 %; Platelet Count 313 k/uL (150-450); RBC 5.79 m/uL (3.80-5.40); RDW 14.5 % (11.5-15.5); WBC 7.4 k/uL (3.8-10.6)
[2024-09-15 17:22] LABS: ALT 19 U/L (4-34); AST 21 U/L (14-36); African American GFR (CKD) 68 (>60 ml/min/1.73 sqM); Albumin 4.7 g/dL (3.5-5.0); Alkaline Phosphatase 92 U/L (38-126); Anion Gap 7 mmol/L; Blood Urea Nitrogen 16 mg/dL (7-17); Calcium 10.5 mg/dL (8.4-10.2); Carbon Dioxide 27 mmol/L (22-30); Chloride 109 mmol/L (98-107); Glucose 82 mg/dL (74-99); Non-African American GFR(CKD) 59 (>60 ml/min/1.73 sqM); Sodium 143 mmol/L (137-145); Total Bilirubin 0.6 mg/dL (0.2-1.3); Total Protein 7.4 g/dL (6.3-8.2)
--- NOTE | 2024-09-15 17:38 | CT ---
EXAMINATION TYPE: CT brain wo con, CT facial bones wo con DATE OF EXAM: 09/15/2024 5:19 PM COMPARISON: Previous CT brain study dated 09/27/2023. CLINICAL INDICATION: Female, 54 years old with history of head injury, fell today/ hit face on cement /confused TECHNIQUE: Brain: Axial CT images of the brain were obtained with coronal and sagittal reformats created and rev iewed. Contrast used: None. Oral contrast used: None. CT DLP: combined dlp 1214.4 mGycm, Automated exposure control for dose reduction was used. FINDINGS: Brain: Extra-axial spaces: No abnormal extra-axial fluid collections. Ventricular system: Mildly prominent compatible with mild generalized cerebral volume loss. Cerebral parenchyma: No acute intraparenchymal hemorrhage or mass effect. The lord-white junction is well differentiated. Scattered hypoattenuating areas are seen within the white matter. Cerebellum: Unremarkable. Mass effect: No evidence of midline shift. Intracranial vasculature: unremarkable Soft tissues: Normal. Calvarium/osseous structures: No depressed skull fracture. Paranasal sinuses and mastoid air cells: Scattered paranasal sinus disease. Visualized orbits: Orbital contents are intact. Facial bones: There is no evidence of fracture, subluxation, dislocation, or significant soft tissue swelling. The orbital contents are unremarkable.The temporal-mandibular joints appear symmetric. Mucosal thickening along the floors of the maxillary sinuses bilaterally. Scattered mild ethmoid air cell mucosal thick ening. Mucosal thickening and air-fluid level in the right sphenoid sinus. Mild mucosal thickening in the left sphenoid sinus. Frontal sinuses appear grossly patent. IMPRESSION: 1. No acute intracranial process. 2. No acute facial bone fracture. 3. Paranasal sinus disease as above. [facility], , 09/15/2024 5:35 PM
--- NOTE | 2024-09-15 17:45 | XR ---
EXAMINATION TYPE: XR chest 2V DATE OF EXAM: 09/15/2024 5:41 PM COMPARISON: None available. CLINICAL INDICATION: Female, 54 years old with history of near syncope; [facility] TECHNIQUE: XR chest 2V Frontal and lateral views of the chest. FINDINGS: Lungs/Pleura: There is no evidence of pleural effusion, focal consolidation, or pneumothorax. Pulmonary vascularity: Unremarkable. Heart/mediastinum: Cardiomediastinal silhouette is prominent in size. Musculoskeletal: No acute osseous pathology. Other findings: None IMPRESSION: No acute cardiopulmonary disease/process. [facility], , 09/15/2024 5:43 PM
[2024-09-15] MEDS: DIPH,PERTUS(ACELL)TETVAC-LF 0.5 ML VIAL IM ONE (17:48)
[2024-09-15 18:43] VITALS: BP 140/84; PULSE 53; RESP 17; TEMP 97.7
== END 2024-09-15 18:43 | disposition home or self-care (01) ==
LOC: EC 15:25
DX: S00.31XA Abrasion of nose, initial encounter (principal); S00.81XA Abrasion of other part of head, initial encounter; F17.200 Nicotine dependence, unspecified, uncomplicated; Z88.0 Allergy status to penicillin; Z23 Encounter for immunization; W01.198A Fall on same level from slipping, tripping and stumbling with subsequent striking against other object, initial encounter; Y93.01 Activity, walking, marching and hiking
CPT/HCPCS: 36415; 70450; 70486; 71046; 80053; 84484; 85025; 90471; 90715; 93005; 99284

== ENCOUNTER → 2024-09-22 | Outpatient (CLI) | payer MEDICARE, OTHER ==
--- NOTE | 2024-09-22 10:46 | USB ---
Reason for Exam: Follow-up at short interval from prior study. Patient History: Menarche at age 9. Patient has no children. Postmenopausal. 01/25/2024, US biopsy breast VAD LT on the Left side. 01/25/2024, Benign US biopsy breast add'l VAD LT on the left side. Paternal aunt had breast cancer at or over age 50. Risk Values: Michelle 5 year model risk: 2.3%. NCI Lifetime model risk: 14.2%. Technique: Method: Targeted. Prior Study Comparison: 01/03/2024 Bilateral MG screening mammo w CAD, [facility]. 01/17/2024 Bilateral MG 3D work up w/cad [facility]ENG, [facility]. 01/25/2024 Left MG diagnostic mammo LT wo CAD., [facility]. Findings: The upper section of the breast of the left breast, the axilla of the left breast and the retroareolar of the left breast were scanned. Targeted ultrasound left breast at the previous biopsy sites 12 and 1:00 position including scanning of the subareolar region and axilla. At the 12:00 position, microclip remains related to prior biopsy. The change around the clip measuring 5 mm. At the 1:00 position, we now note a 1.1 cm benign cyst corresponding to the site of previous biopsy. No suspicious solid or other cystic lesion is identified. No axillary adenopathy. Overall Assessment: Probably benign, BI-RAD 3 Management: Diagnostic Mammogram of both breasts in 3 months. in time for the patient's annual exam. Total one-year follow-up left breast. A clinical breast exam by your physician is recommended on an annual basis and results should be correlated with mammographic findings. This exam should not preclude additional follow-up of suspicious palpable abnormalities. Results were given to the patient verbally at the time of exam. [facility], , 09/22/2024 10:43 AM. Electronically signed and approved by: Bessie Palomares M.D. Radiologist
== END | disposition home or self-care (01) ==
LOC: RADUSWWP 10:12
PROVIDERS: ATTEND Internal Medicine
DX: R92.8 Other abnormal and inconclusive findings on diagnostic imaging of breast (principal); Z78.0 Asymptomatic menopausal state; Z80.3 Family history of malignant neoplasm of breast

== ENCOUNTER → 2024-12-18 | Day surgery (SDC) | payer MEDICARE, OTHER ==
[2024-12-17 09:41] VITALS: BMI 34.7
[~2024-12-18] MED LIST: LACTATED RINGERS 1,000 ML IV SCH; LIDOCAINE 1% (10MG/ML) FOR IV START INTRADERMA PRN; LIDOCAINE 1% INJ 10MG/ML (20 ML MDV) ONE; PROPOFOL 10 MG/ML 50 ML VIAL IV ONE
[2024-12-18 13:36] VITALS: TEMP 97
[2024-12-18] MEDS: LACTATED RINGERS 1,000 ML IV ONE (13:36)
[2024-12-18] MEDS: INSULIN LISPRO (HumaLOG) 100 UNIT/ML 10 mL VL SQ ONE (13:46)
--- NOTE | 2024-12-18 13:53 | P.GSHP ---
History of Present Illness H&P Date: 12/18/24 Chief Complaint: Colon cancer screening 54-year-old female here for colonoscopy. She has not had 1 previously. No bowel complaints. No family history of colon cancer. Past Medical History Past Medical History: Diabetes Mellitus, Hypertension History of Any Multi-Drug Resistant Organisms: None Reported Past Surgical History: No Surgical Hx Reported Additional Past Surgical History / Comment(s): breast biopsy left benign in [facility], Past Anesthesia/Blood Transfusion Reactions: No Reported Reaction Smoking Status: Current every day smoker - Past Family History Father Family Medical History: Cancer Mother Family Medical History: No Reported History Medications and Allergies Home Medications Medication Instructions Recorded Confirmed Type amLODIPine [Norvasc] 5 mg PO DAILY 03/27/24 12/17/24 History Escitalopram [Lexapro] 20 mg PO DAILY 15 Days #15 tab 04/03/24 12/17/24 Rx hydrOXYzine pamoate [Vistaril] 25 mg PO BID 15 Days #30 cap 04/03/24 12/17/24 Rx metFORMIN HCL [Glucophage] 500 mg PO W/BRKFST 15 Days #15 tab 04/03/24 12/17/24 Rx OLANZapine 7.5 mg PO HS 12/17/24 12/17/24 History busPIRone HCL 15 mg PO BID 12/17/24 12/17/24 History fluPHENAZine decanoate [Prolixin 0 mg IM TU 12/17/24 12/17/24 History Decanoate] hydroCHLOROthiazide [Hydrodiuril] 25 mg PO DAILY 12/17/24 12/17/24 History lamoTRIgine 200 mg PO DAILY 12/17/24 12/17/24 History Allergies Allergy/AdvReac Type Severity Reaction Status Date / Time Penicillins Allergy Rash/Hives Verified 12/17/24 09:13 Surgical - Exam Vital Signs Temp Pulse Resp BP Pulse Ox 97 F L 78 18 141/66 95 12/18/24 13:35 12/18/24 13:35 12/18/24 13:35 12/18/24 13:35 12/18/24 13:35 Physical exam: General: Well-developed, well-nourished HEENT: Normocephalic, sclerae nonicteric Abdomen: Nontender, nondistended Extremities: No edema Neuro: Alert and oriented Assessment and Plan (1) Colon cancer screening Narrative/Plan: Will proceed with colonoscopy at this time Current Visit: Yes Status: Acute Code(s): Z12.11 - ENCOUNTER FOR SCREENING FOR MALIGNANT NEOPLASM OF COLON SNOMED Code(s): 967335313
--- NOTE | 2024-12-18 14:18 | P.PCN ---
Date of Procedure: 12/18/24 Procedure(s) Performed: PREOPERATIVE DIAGNOSIS: Colon cancer screening POSTOPERATIVE DIAGNOSIS: Small rectal polyp, tortuous colon PROCEDURE: Colonoscopy with snare polypectomy ANESTHESIA: MAC SURGEON: Rodrigue Hurley M.D. SPECIMENS: Rectal polyp ENDOSCOPIC PROCEDURE: The patient was placed on the endoscopy table in the left decubitus position. The Olympus colonoscope was inserted into the anus and passed under direct visualization to the region of the ileocecal valve. I could not advance the scope beyond the valve to visualize fully the cecal base. The patient has significant tortuosity. Multiple attempts were made. From that point the scope was slowly withdrawn. There were no neoplastic inflammatory or polypoid lesions throughout the visualized cecum, ascending, transverse, descending, and sigmoid colon. In the rectum a small polyp was seen and removed using the cold snare technique. This measured about 5 mm in size. There was no visible diverticulosis. The patient's prep was fair. Digital rectal examination was normal. The patient was taken to the recovery room in stable condition per anesthesia guidelines. RECOMMENDATIONS: Await biopsy results. Will contact patient with timing of next colonoscopy.
[2024-12-18 14:27] VITALS: BP 121/74; PULSE 85; RESP 20
[2024-12-18 14:28] LABS: Glucose,Whole Blood 365 mg/dL (70-110)
[2024-12-19 08:04] LABS: Glucose,Whole Blood 384 mg/dL (70-110)
[2024-12-19 08:04] LABS: Glucose,Whole Blood 384 mg/dL (70-110)
== END ==
LOC: ORWHC2ENDO 13:02
PROVIDERS: ATTEND Surgery
DX: Z12.11 Encounter for screening for malignant neoplasm of colon (principal); D12.8 Benign neoplasm of rectum; Q43.8 Other specified congenital malformations of intestine; I10 Essential (primary) hypertension; E11.9 Type 2 diabetes mellitus without complications; F25.0 Schizoaffective disorder, bipolar type; F17.200 Nicotine dependence, unspecified, uncomplicated; Z79.84 Long term (current) use of oral hypoglycemic drugs; Z79.899 Other long term (current) drug therapy; Z88.0 Allergy status to penicillin
CPT/HCPCS: 88305; 45385; J2003; J2704

== ENCOUNTER 2024-12-27 16:57 | Emergency (ER) | payer MEDICARE, OTHER ==
[2024-12-27 17:18] LABS: Glucose,Whole Blood 457 mg/dL (70-110)
[2024-12-27 17:21] LABS: Appearance,Urine Clear (Clear); Bilirubin,Urine Negative (Negative); Blood,Urine Negative (Negative); Color,Urine Colorless; Glucose,Urine (UA) 4+ (Negative); Ketones,Urine 1+ (Negative); Leukocyte Esterase,Urine Negative (Negative); Nitrite,Urine Negative (Negative); Protein,Urine 1+ (Negative); RBC,Urine 1 /hpf (0-5); Specific Gravity,Urine 1.023 (1.001-1.035); Squamous Epithelial Cell,Urine <1 /hpf (0-4); Urobilinogen,Urine <2.0 mg/dL (<2.0); WBC,Urine 3 /hpf (0-5)
--- NOTE | 2024-12-27 17:38 | ED ---
Female Urogenital HPI - General Chief complaint: Urogenital Stated complaint: Urogenital Time Seen by Provider: 12/27/24 17:36 Source: patient, RN notes reviewed Mode of arrival: ambulatory Limitations: no limitations - History of Present Illness Initial comments: 54-year-old female presented to the ER for evaluation of vaginal swelling and pain. Patient reports over the past 5 days she has noticed swelling and a burning pain to her vaginal region. She denies any dysuria, increase in frequency or hematuria. Patient denies any abdominal pain, nausea, vomiting, constipation/diarrhea or fevers. Patient is a known type II diabetic and takes metformin 500 mg daily. She has been taking this as prescribed. Patient also reports she gets frequent vaginal yeast infections and believes she has another one. No concern of STDs or . Patient has no other complaints at this time. - Related Data Home Medications Medication Instructions Recorded Confirmed amLODIPine [Norvasc] 5 mg PO DAILY 03/27/24 12/17/24 OLANZapine 7.5 mg PO HS 12/17/24 12/17/24 busPIRone HCL 15 mg PO BID 12/17/24 12/17/24 fluPHENAZine decanoate [Prolixin 0 mg IM TU 12/17/24 12/17/24 Decanoate] hydroCHLOROthiazide [Hydrodiuril] 25 mg PO DAILY 12/17/24 12/17/24 lamoTRIgine 200 mg PO DAILY 12/17/24 12/17/24 Previous Rx's Medication Instructions Recorded Escitalopram [Lexapro] 20 mg PO DAILY 15 Days #15 tab 04/03/24 hydrOXYzine pamoate [Vistaril] 25 mg PO BID 15 Days #30 cap 04/03/24 metFORMIN HCL [Glucophage] 500 mg PO W/BRKFST 15 Days #15 tab 04/03/24 Fluconazole 150 mg PO ONCE #2 tab 12/27/24 Nystatin 100,000 Unit/gm Powd 1 applic TOPICAL BID #15 gm 12/27/24 [Mycostatin Powder] metFORMIN HCL 500 mg PO BID #10 tab 12/27/24 Allergies Allergy/AdvReac Type Severity Reaction Status Date / Time Penicillins Allergy Rash/Hives Verified 12/27/24 17:01 Review of Systems ROS Statement: Those systems with pertinent positive or pertinent negative responses have been documented in the HPI. ROS Other: All systems not noted in ROS Statement are negative. Past Medical History Past Medical History: Diabetes Mellitus, Hypertension History of Any Multi-Drug Resistant Organisms: None Reported Past Surgical History: No Surgical Hx Reported Additional Past Surgical History / Comment(s): breast biopsy left benign in [facility], Past Anesthesia/Blood Transfusion Reactions: No Reported Reaction Past Psychological History: Bipolar, Schizoaffective Disorder Smoking Status: Current every day smoker Past Alcohol Use History: None Reported Past Drug Use History: None Reported - Past Family History Father Family Medical History: Cancer Mother Family Medical History: No Reported History General Exam Limitations: no limitations General appearance: alert, in no apparent distress Respiratory exam: Present: normal lung sounds bilaterally. Absent: respiratory distress, wheezes, rales, rhonchi, stridor Cardiovascular Exam: Present: regular rate, normal rhythm, normal heart sounds. Absent: systolic murmur, diastolic murmur, rubs, gallop, clicks GI/Abdominal exam: Present: soft, normal bowel sounds. Absent: distended, tenderness, guarding, rebound, rigid External exam: Present: erythema (Erythema noted to bilateral labia majora extending into bilateral buttock. There is white patchy discharge noted with erythematous satellite lesions. No vaginal discharge or bleeding noted.) Neurological exam: Present: alert, oriented X3, CN II-XII intact Skin exam: Present: warm, dry, intact, normal color. Absent: rash Course Vital Signs 12/27/24 16:58 Temperature 97.7 F Pulse Rate 73 Respiratory 15 Rate Blood Pressure 144/90 O2 Sat by Pulse 95 Oximetry - Reevaluation(s) Reevaluation #1: 12/27/24 17:40 Pelvic examination chaperoned by Aurea PANDEY Medical Decision Making - Medical Decision Making Was pt. sent in by a medical professional or institution (, PA, FUEL CELL BATTERY TECHNICIAN, urgent care, hospital, or group home...) When possible be specific @ -No Did you speak to anyone other than the patient for history (EMS, parent, family, police, friend...)? What history was obtained from this source @ -No Did you review nursing and triage notes (agree or disagree)? Why? @ -I reviewed and agree with nursing and triage notes Were old charts reviewed (outside hosp., previous admission, EMS record, old EKG, old radiological studies, urgent care reports/EKG's, group home records)? Report findings @ -No old charts were reviewed Differential Diagnosis (chest pain, altered mental status, abdominal pain women, abdominal pain men, vaginal bleeding, weakness, fever, dyspnea, syncope, headache, dizziness, GI bleed, back pain, seizure, CVA, palpatations, mental health, musculoskeletal)? @ -UTI, STD, intertrigo, laceration... This list is not meant to be all- inclusive] EKG interpreted by me (3pts min.). @ -None done X-rays interpreted by me (1pt min.). @ -None done CT interpreted by me (1pt min.). @ -None done U/S interpreted by me (1pt. min.). @ -None done What testing was considered but not performed or refused? (CT, X-rays, U/S, labs)? Why? @ -None What meds were considered but not given or refused? Why? @ -None Did you discuss the management of the patient with other professionals (professionals i.e. , PA, FUEL CELL BATTERY TECHNICIAN, lab, RT, psych nurse, case management social worker, mine surveyor, teacher, dairy quality assurance officer, pillowcase cutter)? Give summary @ -No Was smoking cessation discussed for >3mins.? @ -No Was critical care preformed (if so, how long)? @ -No Were there social determinants of health that impacted care today? How? (Homelessness, low income, unemployed, alcoholism, drug addiction, transportation, low edu. Level, literacy, decrease access to med. care, mcc, rehab)? @ -No Was there de-escalation of care discussed even if they declined (Discuss DNR or withdrawal of care, Hospice)? DNR status @ -No What co-morbidities impacted this encounter? (DM, HTN, Smoking, COPD, CAD, Cancer, CVA, ARF, Chemo, Hep., AIDS, mental health diagnosis, sleep apnea, morbid obesity)? @ -Diabetes mellitus Was patient admitted / discharged? Hospital course, mention meds given and route, prescriptions, significant lab abnormalities, going to OR and other pertinent info. @ -Discharge. 54-year-old female presented to the ER for evaluation of vaginal pain and swelling. Vitals within acceptable limits. Examination showing a rash consistent with intertrigo to genital region extending into buttock. Urinalysis obtained showing 4+ glucose with no evidence of infection. Blood sugar 475, patient given 10 units of insulin prior to discharge. Intertrigo will be treated with fluconazole and nystatin powder. I also advised patient to increase metformin dose to 500 mg twice daily as uncontrolled diabetes may be source of reoccurring yeast infections. Patient reports she has follow-up with Dr. Porter on 01-01-2025. I advised patient to keep this appointment and to discuss with Dr. Porter diabetes at visit as medication adjustment may be indicated. Patient is stable for discharge at this time. Strict return parameters discussed. Patient discharged in stable condition with follow-up to PCP. Patient verbally expressed understanding agree with care plan. Case discussed with ED attending, Dr. Paul. Undiagnosed new problem with uncertain prognosis? @ -No Drug Therapy requiring intensive monitoring for toxicity (Heparin, Nitro, Insulin, Cardizem)? @ -No Were any procedures done? @ -No Diagnosis/symptom? @ -Intertrigo/hyperglycemia Acute, or Chronic, or Acute on Chronic? @ -Acute Uncomplicated (without systemic symptoms) or Complicated (systemic symptoms)? @ -Uncomplicated Side effects of treatment? @ -No Exacerbation, Progression, or Severe Exacerbation? @ -No Poses a threat to life or bodily function? How? (Chest pain, [place], [place], pneumonia, PE, COPD, DKA, ARF, appy, cholecystitis, CVA, Diverticulitis, Homicidal, Suicidal, threat to staff... and all critical care pts) @ -No - Lab Data Lab Results 12/27/24 12/27/24 Range/Units 17:05 17:16 POC Glucose (mg/dL) 457 H (70-110) mg/dL POC Glu After School Coordinator ID Henrique Villar Urine Color Colorless Urine Appearance Clear (Clear) Urine pH 6.0 (5.0-8.0) Ur Specific [place] 1.023 (1.001-1.035) Urine Protein 1+ H (Negative) Urine Glucose (UA) 4+ H (Negative) Urine Ketones 1+ H (Negative) Urine Blood Negative (Negative) Urine Nitrite Negative (Negative) Urine Bilirubin Negative (Negative) Urine Urobilinogen <2.0 (<2.0) mg/dL Ur Leukocyte Esterase Negative (Negative) Urine RBC 1 (0-5) /hpf Urine WBC 3 (0-5) /hpf Ur Squamous Epith Cells <1 (0-4) /hpf Disposition Clinical Impression: Intertrigo, Hyperglycemia Disposition: HOME SELF-CARE Condition: Stable Additional Instructions: Take fluconazole as prescribed. 1 pill now and again in 72 hours. Use nystatin powder as prescribed. Increase metformin 500 mg to 2 times a day. Follow-up with Dr. Porter as scheduled on 01-01-2025 for reevaluation. Return to the ER for any new or worsening concerns. Prescriptions: Fluconazole 150 mg PO ONCE #2 tab metFORMIN HCL 500 mg PO BID #10 tab Nystatin 100,000 Unit/gm Powd [Mycostatin Powder] 1 applic TOPICAL BID #15 gm Is patient prescribed a controlled substance at d/c from ED?: No Referrals: April Porter MD [Primary Care Provider] - 1-2 days Time of Disposition: 17:38
[2024-12-27] MEDS: INSULIN LISPRO (HumaLOG) 100 UNIT/ML 10 mL VL SQ ONE (17:43)
[2024-12-27 17:51] VITALS: BP 131/78; PULSE 81; RESP 18; TEMP 97.6
== END 2024-12-27 17:49 | disposition home or self-care (01) ==
LOC: EC 16:57
DX: L30.4 Erythema intertrigo (principal); E11.65 Type 2 diabetes mellitus with hyperglycemia; B37.31 Acute candidiasis of vulva and vagina; I10 Essential (primary) hypertension; Z79.84 Long term (current) use of oral hypoglycemic drugs; F17.200 Nicotine dependence, unspecified, uncomplicated
CPT/HCPCS: 36415; 81001; 99283

== ENCOUNTER 2025-01-14 13:53 | Emergency (ER) | payer MEDICARE, OTHER ==
[2025-01-14 13:59] LABS: Glucose,Whole Blood 550 mg/dL (70-110)
--- NOTE | 2025-01-14 14:52 | ED ---
Recheck HPI - General Chief Complaint: Recheck/Abnormal Lab/Rx Stated Complaint: high blood sugar Time Seen by Provider: 01/14/25 14:13 Source: patient, RN notes reviewed Mode of arrival: ambulatory Limitations: no limitations - History of Present Illness Initial Comments: 54-year-old female presenting for hyperglycemia. States she went to [facility] yesterday where blood work was taken and she was called later in the evening stating that her blood sugar was dangerously high and that she needs to be seen in the ER immediately. Patient states this morning she began to experience diffuse abdominal pain and decided to come to the ER for evaluation. States she takes pills for her diabetes, denies insulin. She is unsure if she has type I or type 2 diabetes, states she was diagnosed about 3 years ago. Denies chest pain, shortness of breath, fevers, headache, nausea, vomiting, urinary symptoms. Other medical history includes hypertension, no other medical conditions. - Related Data Home Medications Medication Instructions Recorded Confirmed amLODIPine [Norvasc] 5 mg PO DAILY 03/27/24 12/17/24 OLANZapine 7.5 mg PO HS 12/17/24 12/17/24 busPIRone HCL 15 mg PO BID 12/17/24 12/17/24 fluPHENAZine decanoate [Prolixin 0 mg IM TU 12/17/24 12/17/24 Decanoate] hydroCHLOROthiazide [Hydrodiuril] 25 mg PO DAILY 12/17/24 12/17/24 lamoTRIgine 200 mg PO DAILY 12/17/24 12/17/24 Previous Rx's Medication Instructions Recorded Escitalopram [Lexapro] 20 mg PO DAILY 15 Days #15 tab 04/03/24 hydrOXYzine pamoate [Vistaril] 25 mg PO BID 15 Days #30 cap 04/03/24 metFORMIN HCL [Glucophage] 500 mg PO W/BRKFST 15 Days #15 tab 04/03/24 Fluconazole 150 mg PO ONCE #2 tab 12/27/24 Nystatin 100,000 Unit/gm Powd 1 applic TOPICAL BID #15 gm 12/27/24 [Mycostatin Powder] metFORMIN HCL 500 mg PO BID #10 tab 12/27/24 Allergies Allergy/AdvReac Type Severity Reaction Status Date / Time Penicillins Allergy Rash/Hives Verified 01/14/25 13:58 Review of Systems ROS Statement: Those systems with pertinent positive or pertinent negative responses have been documented in the HPI. ROS Other: All systems not noted in ROS Statement are negative. Past Medical History Past Medical History: Diabetes Mellitus, Hypertension History of Any Multi-Drug Resistant Organisms: None Reported Past Surgical History: No Surgical Hx Reported Additional Past Surgical History / Comment(s): breast biopsy left benign in [facility], Past Anesthesia/Blood Transfusion Reactions: No Reported Reaction Past Psychological History: Bipolar, Schizoaffective Disorder Smoking Status: Current every day smoker Past Alcohol Use History: None Reported Past Drug Use History: None Reported - Past Family History Father Family Medical History: Cancer Mother Family Medical History: No Reported History General Exam Limitations: no limitations General appearance: alert, in no apparent distress Head exam: Present: atraumatic, normocephalic, normal inspection Eye exam: Present: normal appearance, PERRL, EOMI. Absent: scleral icterus, conjunctival injection, periorbital swelling ENT exam: Present: normal exam, mucous membranes moist Respiratory exam: Present: normal lung sounds bilaterally. Absent: respiratory distress, wheezes, rales, rhonchi, stridor Cardiovascular Exam: Present: regular rate, normal rhythm, normal heart sounds. Absent: systolic murmur, diastolic murmur, rubs, gallop, clicks GI/Abdominal exam: Present: soft, normal bowel sounds. Absent: distended, tenderness, guarding, rebound, rigid Neurological exam: Present: alert, oriented X3 Psychiatric exam: Present: normal affect, normal mood Skin exam: Present: warm, dry, intact, normal color. Absent: rash Course Vital Signs 01/14/25 01/14/25 13:54 16:47 Temperature 97.6 F Pulse Rate 81 83 Respiratory 16 16 Rate Blood Pressure 139/84 140/91 O2 Sat by Pulse 93 L 99 Oximetry Medical Decision Making - Medical Decision Making Was pt. sent in by a medical professional or institution (, PA, FAMILY CENTERED SPECIALIST, urgent care, hospital, or halfway...) When possible be specific @ -No Did you speak to anyone other than the patient for history (EMS, parent, family, police, friend...)? What history was obtained from this source @ -No Did you review nursing and triage notes (agree or disagree)? Why? @ -I reviewed and agree with nursing and triage notes Were old charts reviewed (outside hosp., previous admission, EMS record, old EKG, old radiological studies, urgent care reports/EKG's, halfway records)? Report findings @ -No old charts were reviewed Differential Diagnosis (chest pain, altered mental status, abdominal pain women, abdominal pain men, vaginal bleeding, weakness, fever, dyspnea, syncope, headache, dizziness, GI bleed, back pain, seizure, CVA, palpatations, mental health, musculoskeletal)? @ -Hyperglycemia, HHS, DKA EKG interpreted by me (3pts min.). @ -As above X-rays interpreted by me (1pt min.). @ -None done CT interpreted by me (1pt min.). @ -None done U/S interpreted by me (1pt. min.). @ -None done What testing was considered but not performed or refused? (CT, X-rays, U/S, labs)? Why? @ -None What meds were considered but not given or refused? Why? @ -None Did you discuss the management of the patient with other professionals (professionals i.e. , PA, FAMILY CENTERED SPECIALIST, lab, RT, psych nurse, older adult social work specialist, sewer and inspector, teacher, credit review officer, case picker)? Give summary @ -No Was smoking cessation discussed for >3mins.? @ -No Was critical care preformed (if so, how long)? @ -No Were there social determinants of health that impacted care today? How? (Homele ssness, low income, unemployed, alcoholism, drug addiction, transportation, low edu. Level, literacy, decrease access to med. care, assisted, rehab)? @ -No Was there de-escalation of care discussed even if they declined (Discuss DNR or withdrawal of care, Hospice)? DNR status @ -No What co-morbidities impacted this encounter? (DM, HTN, Smoking, COPD, CAD, Cancer, CVA, ARF, Chemo, Hep., AIDS, mental health diagnosis, sleep apnea, morbid obesity)? @ -None Was patient admitted / discharged? Hospital course, mention meds given and route, prescriptions, significant lab abnormalities, going to OR and other pertinent info. @ - discharge. 54-year-old female presenting for hyperglycemia. Admits diffuse abdominal pain. Blood glucose in triage was 550. Vital signs within acceptable limits. Patient is provided with IV fluid bolus. Lab work remarkable for negative acetone, normal white blood cell count at 6.2, normal CMP CO2 at 40, normal potassium at 4.5, elevated glucose at 577, normal lactic acid at 1.2. Patient was then given an additional IV fluid bolus and 10 units of IV insulin. Blood glucose then reduced to 242. Patient is not in DKA and can be safely discharged with close follow-up with PCP and strict return precautions. Advised to avoid foods high in sugar and carbohydrates until PCP follow-up. Patient is agreeable to plan. Case was discussed with my ED attending Dr. Leon. Undiagnosed new problem with uncertain prognosis? @ -No Drug Therapy requiring intensive monitoring for toxicity (Heparin, Nitro, Insulin, Cardizem)? @ -No Were any procedures done? @ -No Diagnosis/symptom? @ -Hyperglycemia Acute, or Chronic, or Acute on Chronic? @ -Acute Uncomplicated (without systemic symptoms) or Complicated (systemic symptoms)? @ -Uncomplicated Side effects of treatment? @ -No Exacerbation, Progression, or Severe Exacerbation? @ -No Poses a threat to life or bodily function? How? (Chest pain, [place], [place], pneumonia, PE, COPD, DKA, ARF, appy, cholecystitis, CVA, Diverticulitis, Homicidal, Suicidal, threat to staff... and all critical care pts) @ -Not at this time - Lab Data Result diagrams: 01/14/25 15:04 01/14/25 15:04 Lab Results 01/14/25 01/14/25 01/14/25 Range/Units 13:57 15:04 15:04 WBC 6.2 (3.8-10.6) k/uL RBC 5.75 H (3.80-5.40) m/uL Hgb 16.0 (11.4-16.0) gm/dL Hct 49.1 H (34.0-46.0) % MCV 85.4 (80.0-100.0) fL MCH 27.8 (25.0-35.0) pg MCHC 32.5 (31.0-37.0) g/dL RDW 14.1 (11.5-15.5) % Plt Count 255 (150-450) k/uL MPV 7.8 Neutrophils % 75 % Lymphocytes % 16 % Monocytes % 5 % Eosinophils % 3 % Basophils % 1 % Neutrophils # 4.6 (1.3-7.7) k/uL Lymphocytes # 1.0 (1.0-4.8) k/uL Monocytes # 0.3 (0-1.0) k/uL Eosinophils # 0.2 (0-0.7) k/uL Basophils # 0.0 (0-0.2) k/uL Hypochromasia Slight VBG pH (7.31-7.41) VBG pCO2 (37-51) mmHg VBG HCO3 (24-28) mmol/L Sodium 131 L (137-145) mmol/L Potassium 4.5 (3.5-5.1) mmol/L Chloride 96 L (98-107) mmol/L Carbon Dioxide 23 (22-30) mmol/L Anion Gap 12 mmol/L BUN 17 (7-17) mg/dL Creatinine 0.94 (0.52-1.04) mg/dL Est GFR (CKD-EPI)AfAm 79 (>60 ml/min/1.73 sqM) Est GFR (CKD-EPI)NonAf 68 (>60 ml/min/1.73 sqM) Glucose 577 H* (74-99) mg/dL POC Glucose (mg/dL) 550 H* (70-110) mg/dL POC Glu Senior Administrative Assistant ID Romie David Plasma Lactic Acid Rob (0.7-2.0) mmol/L Calcium 10.6 H (8.4-10.2) mg/dL Phosphorus 3.8 (2.5-4.5) mg/dL Magnesium 2.0 (1.6-2.3) mg/dL Total Bilirubin 0.7 (0.2-1.3) mg/dL AST 26 (14-36) U/L ALT 31 (4-34) U/L Alkaline Phosphatase 118 (38-126) U/L Total Protein 6.8 (6.3-8.2) g/dL Albumin 4.4 (3.5-5.0) g/dL Acetone, Qual Negative (Negative) 01/14/25 01/14/25 01/14/25 Range/Units 15:04 15:04 16:19 WBC (3.8-10.6) k/uL RBC (3.80-5.40) m/uL Hgb (11.4-16.0) gm/dL Hct (34.0-46.0) % MCV (80.0-100.0) fL MCH (25.0-35.0) pg MCHC (31.0-37.0) g/dL RDW (11.5-15.5) % Plt Count (150-450) k/uL MPV Neutrophils % % Lymphocytes % % Monocytes % % Eosinophils % % Basophils % % Neutrophils # (1.3-7.7) k/uL Lymphocytes # (1.0-4.8) k/uL Monocytes # (0-1.0) k/uL Eosinophils # (0-0.7) k/uL Basophils # (0-0.2) k/uL Hypochromasia VBG pH 7.41 (7.31-7.41) VBG pCO2 40 (37-51) mmHg VBG HCO3 26 (24-28) mmol/L Sodium (137-145) mmol/L Potassium (3.5-5.1) mmol/L Chloride (98-107) mmol/L Carbon Dioxide (22-30) mmol/L Anion Gap mmol/L BUN (7-17) mg/dL Creatinine (0.52-1.04) mg/dL Est GFR (CKD-EPI)AfAm (>60 ml/min/1.73 sqM) Est GFR (CKD-EPI)NonAf (>60 ml/min/1.73 sqM) Glucose (74-99) mg/dL POC Glucose (mg/dL) 411 H (70-110) mg/dL POC Glu Senior Administrative Assistant ID [facility] Plasma Lactic Acid Rob 1.2 (0.7-2.0) mmol/L Calcium (8.4-10.2) mg/dL Phosphorus (2.5-4.5) mg/dL Magnesium (1.6-2.3) mg/dL Total Bilirubin (0.2-1.3) mg/dL AST (14-36) U/L ALT (4-34) U/L Alkaline Phosphatase (38-126) U/L Total Protein (6.3-8.2) g/dL Albumin (3.5-5.0) g/dL Acetone, Qual (Negative) 01/14/25 Range/Units 17:13 WBC (3.8-10.6) k/uL RBC (3.80-5.40) m/uL Hgb (11.4-16.0) gm/dL Hct (34.0-46.0) % MCV (80.0-100.0) fL MCH (25.0-35.0) pg MCHC (31.0-37.0) g/dL RDW (11.5-15.5) % Plt Count (150-450) k/uL MPV Neutrophils % % Lymphocytes % % Monocytes % % Eosinophils % % Basophils % % Neutrophils # (1.3-7.7) k/uL Lymphocytes # (1.0-4.8) k/uL Monocytes # (0-1.0) k/uL Eosinophils # (0-0.7) k/uL Basophils # (0-0.2) k/uL Hypochromasia VBG pH (7.31-7.41) VBG pCO2 (37-51) mmHg VBG HCO3 (24-28) mmol/L Sodium (137-145) mmol/L Potassium (3.5-5.1) mmol/L Chloride (98-107) mmol/L Carbon Dioxide (22-30) mmol/L Anion Gap mmol/L BUN (7-17) mg/dL Creatinine (0.52-1.04) mg/dL Est GFR (CKD-EPI)AfAm (>60 ml/min/1.73 sqM) Est GFR (CKD-EPI)NonAf (>60 ml/min/1.73 sqM) Glucose (74-99) mg/dL POC Glucose (mg/dL) 242 H (70-110) mg/dL POC Glu Senior Administrative Assistant ID [facility] Plasma Lactic Acid Rob (0.7-2.0) mmol/L Calcium (8.4-10.2) mg/dL Phosphorus (2.5-4.5) mg/dL Magnesium (1.6-2.3) mg/dL Total Bilirubin (0.2-1.3) mg/dL AST (14-36) U/L ALT (4-34) U/L Alkaline Phosphatase (38-126) U/L Total Protein (6.3-8.2) g/dL Albumin (3.5-5.0) g/dL Acetone, Qual (Negative) - EKG Data -: EKG Interpreted by Me EKG Comments: EKG reveals normal sinus rhythm with no acute ST changes. Ventricular rate 70 bpm, [place] interval 185, QRS duration 116, QT/QTc 421/442 Disposition Clinical Impression: Hyperglycemia Disposition: HOME SELF-CARE Condition: Stable Instructions (If sedation given, give patient instructions): Diabetic Hyperglycemia (ED) Additional Instructions: Follow-up with Dr. Porter in 1 to 3 days for reevaluation. Please return to the Emergency Department if symptoms worsen or any other concerns. Is patient prescribed a controlled substance at d/c from ED?: No Referrals: April Porter MD [Primary Care Provider] - 1-2 days Time of Disposition: 17:42
[2025-01-14] MEDS: SODIUM CHLORIDE 0.9% 1,000 ML IV STA ×2 (14:59→15:32)
[2025-01-14 15:10] LABS: VBG PH 7.41 (7.31-7.41)
[2025-01-14 15:11] LABS: Basophils % (A) 1 %; Eosinophils # (A) 0.2 k/uL (0-0.7); Eosinophils % (A) 3 %; HCT 49.1 % (34.0-46.0); Hypochromasia Slight; Lymphocytes % (A) 16 %; MCH 27.8 pg (25.0-35.0); MCHC 32.5 g/dL (31.0-37.0); MCV 85.4 fL (80.0-100.0); Mean Platelet Volume 7.8; Monocytes # (A) 0.3 k/uL (0-1.0); Monocytes % (A) 5 %; Neutrophils # (A) 4.6 k/uL (1.3-7.7); Neutrophils % (A) 75 %; Platelet Count 255 k/uL (150-450); RBC 5.75 m/uL (3.80-5.40); RDW 14.1 % (11.5-15.5); WBC 6.2 k/uL (3.8-10.6)
[2025-01-14 15:28] LABS: ALT 31 U/L (4-34); AST 26 U/L (14-36); African American GFR (CKD) 79 (>60 ml/min/1.73 sqM); Albumin 4.4 g/dL (3.5-5.0); Alkaline Phosphatase 118 U/L (38-126); Anion Gap 12 mmol/L; Blood Urea Nitrogen 17 mg/dL (7-17); Calcium 10.6 mg/dL (8.4-10.2); Carbon Dioxide 23 mmol/L (22-30); Chloride 96 mmol/L (98-107); Non-African American GFR(CKD) 68 (>60 ml/min/1.73 sqM); Phosphorus 3.8 mg/dL (2.5-4.5); Potassium 4.5 mmol/L (3.5-5.1); Sodium 131 mmol/L (137-145); Total Bilirubin 0.7 mg/dL (0.2-1.3); Total Protein 6.8 g/dL (6.3-8.2)
[2025-01-14 15:31] LABS: Glucose 577 mg/dL (74-99)
[2025-01-14] MEDS: INSULIN REGULAR 100 UNIT/ML VIAL (IV) IV ONE ×2 (15:55→16:44)
[2025-01-14 16:20] LABS: Glucose,Whole Blood 411 mg/dL (70-110)
[2025-01-14 17:14] LABS: Glucose,Whole Blood 242 mg/dL (70-110)
[2025-01-14 18:21] VITALS: BP 115/79; PULSE 84; RESP 18; TEMP 97.9
== END 2025-01-14 18:25 | disposition home or self-care (01) ==
LOC: EC 13:53
DX: E16.2 Hypoglycemia, unspecified (principal); I10 Essential (primary) hypertension; F17.200 Nicotine dependence, unspecified, uncomplicated; Z88.0 Allergy status to penicillin; Z79.84 Long term (current) use of oral hypoglycemic drugs
CPT/HCPCS: 36415; 80053; 82009; 82803; 83605; 83735; 84100; 85025; 93005; 96360; 96361; 99285

== ENCOUNTER → 2025-01-19 | Outpatient (CLI) | payer MEDICARE, OTHER ==
--- NOTE | 2025-01-19 12:00 | MM ---
Reason for Exam: Follow-up at short interval from prior study. Last screening mammogram was performed 12 month(s) ago. Patient History: Menarche at age 9. Patient has no children. Postmenopausal. 01/25/2024, US biopsy breast VAD LT on the Left side. 01/25/2024, Benign US biopsy breast add'l VAD LT on the left side. Paternal aunt had breast cancer at or over age 50. Risk Values: Michelle 5 year model risk: 2.3%. NCI Lifetime model risk: 14.2%. Prior Study Comparison: 01/03/2024 Bilateral MG screening mammo w CAD, [facility]. 01/17/2024 Bilateral MG 3D work up w/cad CHENG, [facility]. 01/25/2024 Left MG diagnostic mammo LT wo CAD., [facility]. Tissue Density: The breasts are heterogeneously dense, which may obscure small masses. Findings: Analyzed By CAD. There is evidence of chronic nodularity. No suspicious masses seen. No suspicious microcalcifications. Prior left-sided biopsies seen. Overall Assessment: Benign, BI-RAD 2 Management: Screening Mammogram of both breasts in 1 year. . Results were given to the patient verbally at the time of exam. Patient should continue monthly self-breast exams. A clinical breast exam by your physician is recommended on an annual basis. This exam should not preclude additional follow-up of suspicious palpable abnormalities. Note on Michelle scores and lifetime risk: 1. A Michelle score greater than 3% is considered moderate risk. If this is the case, consider specialist referral to assess eligibility for a risk reducing agent. 2. If overall lifetime risk for the development of breast cancer is 20% or higher, the patient may qualify for future screening with alternating mammogram and breast MRI. [facility], , 01/19/2025 11:57 AM. Electronically signed and approved by: Venu Young M.D. [facility]
== END | disposition home or self-care (01) ==
LOC: RADMAMWWP 10:56
PROVIDERS: ATTEND Internal Medicine
DX: R92.8 Other abnormal and inconclusive findings on diagnostic imaging of breast (principal); R92.333 Mammographic heterogeneous density, bilateral breasts; Z78.0 Asymptomatic menopausal state; Z80.3 Family history of malignant neoplasm of breast
CPT/HCPCS: 77062; 77066